=== PATIENT | female | born 1965 | race Caucasian/White ===

== ENCOUNTER 2020-06-18 03:22 | Emergency (ER) | payer SELFPAY ==
[~2020-06-18] VITALS: Ht 154.9 cm; Wt 148.8 kg
[2020-06-18] MEDS ORDERED: ONDANSETRON HCL INJ 2MG/ML 2ML 2 MG/ML VIAL IV STA (03:51)
[2020-06-18] MEDS ORDERED: KETOROLAC TROMETHAMINE 30 MG/ML VIAL IV STA (03:51)
[2020-06-18] MEDS ORDERED: SODIUM CHLORIDE 0.9% 1000ML 1,000 ML IV STA (03:51)
[2020-06-18] MEDS ORDERED: SODIUM CHLORIDE 0.9% 1000ML 1,000 ML ONE (03:56)
[2020-06-18 04:04] LABS: BASOPHILS % 0.4 % (0.0-1.0); EOSINOPHILS # (AUTO) 0.1 (0.0-0.4); EOSINOPHILS % 0.6 % (0.0-6.0); HEMATOCRIT 42.7 % (34.2-44.1); HEMOGLOBIN 13.1 g/dL (12.0-16.0); LYMPHOCYTES # (AUTO) 1.6 (1.0-3.2); LYMPHOCYTES % 14.3 % (18.0-39.1); MEAN CORPUSCULAR HGB CONC 30.7 g/dL (31-35); MONOCYTES # (AUTO) 0.6 (0.2-0.8); MONOCYTES % 5.8 % (4.4-11.3); NEUTROPHILS # (AUTO) 8.6 (2.1-6.9); NEUTROPHILS % 78.2 % (38.7-80.0); PLATELET COUNT 237 x10e3/uL (140-360); RED BLOOD COUNT 4.85 x10e6/uL (3.6-5.1); RED CELL DISTRIBUTION WIDTH 14.2 % (11.7-14.4)
[2020-06-18 04:18] LABS: ALANINE AMINOTRANSFERASE 41 IU/L (0-55); ALBUMIN 3.3 g/dL (3.5-5.0); ALBUMIN/GLOBULIN RATIO 0.7 (0.8-2.0); ALKALINE PHOSPHATASE 105 IU/L (40-150); ANION GAP 19.1 mmol/L (8-16); BLOOD UREA NITROGEN 10 mg/dL (7-26); BUN/CREATININE RATIO 13 (6-25); CALCIUM 9.6 mg/dL (8.4-10.2); CARBON DIOXIDE 27 mmol/L (22-29); CHLORIDE 96 mmol/L (98-107); CREATINE KINASE 442 IU/L (29-168); CREATININE, SERUM 0.76 mg/dL (0.57-1.11); EST GLOMERULAR FILTRATION RATE > 60 ML/MIN (60-); GLUCOSE 267 mg/dL (74-118); POTASSIUM 4.1 mmol/L (3.5-5.1); SODIUM 138 mmol/L (136-145)
--- OUTSIDE RECORDS SUMMARY | 2020-06-18 04:28 | XMS REPORT | Clinical Summary ---
Author Author Dannie Faith Organization [place] [facility] Address Unknown Phone Unavailable Care Team Providers Care Electrocardiograph Repairer Name Role Phone Asked, No Pcp PCP Unavailable Allergies Comments Active Allergy Reactions Severity Noted Date Exenatide Rash Low 01/19/2019 Codeine Rash Low 10/10/2018 Swelling of skin Hydralazine-Hydrochloroth Other (See 01/19/2019 iazid Comments) Swelling of skin Morphine Other (See 05/09/2019 Comments) Swelling of skin Penicillins Other (See 10/10/2018 Comments) Swelling of skin Valsartan Other (See Low 01/19/2019 Comments) Medications End Date Status Medication Sig Dispensed Refills Start Date Active dulaglutide (TRULICITY) Inject 0.75 0 0.75 mg/0.5 mL pen mg under the injector skin every 7 days. Takes on tuesdays Active nateglinide (STARLIX) 60 Take 60 mg by 0 MG tablet mouth daily. Active glimepiride (AMARYL) 4 MG Take 4 mg by 0 tablet mouth daily before breakfast. Active pravastatin (PRAVACHOL) Take 40 mg by 0 40 MG tablet mouth daily. Active metFORMIN (GLUCOPHAGE) Take 1,000 mg 0 1,000 mg tablet by mouth 2 (two) times a day with meals. Active metoprolol succinate XL Take 25 mg by 0 (TOPROL-XL) 25 mg 24 hr mouth daily. tablet Active levothyroxine (SYNTHROID, Take 25 mcg 0 LEVOXYL) 25 mcg tablet by mouth every morning. Active valsartan (DIOVAN) 320 MG Take 320 mg 0 tablet by mouth daily. Active omeprazole (PriLOSEC) 20 Take 20 mg by 0 MG capsule mouth daily. Active insulin Inject 40 0 glargine,hum.rec.anlog Units under (TOUJEO SOLOSTAR U-300 the skin INSULIN SUBQ) daily. Active ipratropium-albuterol Inhale 1 puff 0 (COMBIVENT RESPIMAT) 4 (four) 20-100 mcg/actuation mist times a day. inhaler Active fenofibrate (TRICOR) 145 Take 145 mg 0 MG tablet by mouth daily. Active insulin regular, human Inject 10 0 (HUMULIN R REGULAR U-100 Units as INSULN INJ) directed 2 (two) times a day with meals. Active pregabalin (LYRICA) 150 Take 150 mg 0 MG capsule by mouth daily. Active diclofenac (VOLTAREN) 75 Take 75 mg by 0 MG EC tablet mouth 2 (two) times a day. 07/10/2019 Discontinued (Stop Taking at Discharge) phenytoin (DILANTIN) 100 Take 500 mg 0 MG ER capsule by mouth daily. 08/10/2019 phenytoin (DILANTIN) 200 Take 1 30 capsule 0 0 /15/201 MG ER capsule capsule (200 9 mg total) by mouth daily for 30 days. 08/09/2019 phenytoin (DILANTIN) 300 Take 1 30 capsule 0 0 /14/201 MG ER capsule capsule (300 9 mg total) by mouth nightly for 30 days. Active Problems Problem Noted Date Seizure 07/10/2019 CARL (obstructive sleep apnea) 07/10/2019 Dyspnea 07/08/2019 Biliary colic 01/20/2019 Encounters Care Team Description Date Type Specialty Deepa Zelaya RPH 07/13/2019 Patient Quality Outreach [place] Freddy Ornelas MD Yerramadha, Muralidhar Reddy, MD Seizure (HCC) (Primary Dx); Dyspnea, unspecified type; Lower extremity edema; SOB (shortness of breath) on exertion; CARL (obstructive sleep apnea) 07/08/2019 [facility] after 06/18/2019 Social History Date Tobacco Use Types Packs/Day Years Used Never Smoker Smokeless Tobacco: Never Used Drinks/Week oz/Week Comments Alcohol Use No Alcohol Habits Answer Date Recorded How often do you have a drink containing alcohol? Never 10/10/2018 How many drinks containing alcohol do you have on No t asked a typical day when you are drinking? How often do you have six or more drinks on one Not asked occasion? Sex Assigned at Date Recorded Not on file Industry Job Start Date Occupation Not on file Not on file Not on file Travel End Travel History Travel Start No recent travel history available. Last Filed Vital Signs Reading Time Taken Comments Vital Sign 131/63 07/10/2019 10:43 AM CDT Blood Pressure 88 07/10/2019 10:43 AM CDT Pulse 36.9 C (98.4 F) 07/10/2019 10:43 AM CDT Temperature 20 07/10/2019 10:43 AM CDT Respiratory Rate 95% 07/10/2019 10:43 AM CDT Oxygen Saturation - - Inhaled Oxygen Concentration 122 kg (270 lb) 07/08/2019 4:49 PM CDT Weight 160 cm (5' 3") 07/08/2019 4:49 PM CDT Height 47.83 07/08/2019 4:49 PM CDT Body Mass Index Plan of Treatment Health Maintenance Due Date Last Done Comments CERVICAL CANCER SCREENING 1986 BREAST CANCER SCREENING 2015 COLONOSCOPY SCREENING 2015 SHINGLES VACCINES (#1) 2015 INFLUENZA VACCINE 07/27/2020 Procedures Comments Procedure Name Priority Date/Time Associated Diag nosis POC GLUCOSE Routine 07/10/2019 11:32 AM CDT SMEAR REVIEW Routine 07/10/2019 6:37 AM CDT ESTIMATED GFR Routine 07/10/2019 6:37 AM CDT BASIC METABOLIC PANEL Routine 07/10/2019 6:37 AM CDT HC COMPLETE BLD COUNT Routine 07/10/2019 W/AUTO DIFF 6:37 AM CDT POC GLUCOSE Routine 07/10/2019 6:00 AM CDT POC GLUCOSE Routine 07/09/2019 7:52 PM CDT POC GLUCOSE Routine 07/09/2019 4:14 PM CDT POC GLUCOSE Routine 07/09/2019 10:38 AM CDT URINE CULTURE Routine 07/09/2019 6:02 AM CDT GRAM STAIN Routine 07/09/2019 6:02 AM CDT SMEAR REVIEW Routine 07/09/2019 5:57 AM CDT ESTIMATED GFR Routine 07/09/2019 5:57 AM CDT COMPREHENSIVE METABOLIC Routine 07/09/2019 PANEL 5:57 AM CDT CBC WITH PLATELET AND Routine 07/09/2019 DIFFERENTIAL 5:57 AM CDT URINALYSIS SCREEN AND Routine 07/09/2019 MICROSCOPY, WITH REFLEX 5:28 AM CDT TO CULTURE POC GLUCOSE Routine 07/09/2019 5:06 AM CDT ECG 12-LEAD Routine 07/09/2019 4:39 AM CDT TROPONIN Timed 07/09/2019 1:00 AM CDT ECG 12-LEAD Routine 07/09/2019 12:12 AM CDT POC GLUCOSE Routine 07/08/2019 9:48 PM CDT TROPONIN Timed 07/08/2019 9:00 PM CDT LIPID PANEL Routine 07/08/2019 9:00 PM CDT US DUPLEX VENOUS LOWER STAT 07/08/2019 EXTREMITY BILATERAL 7:32 PM CDT XR CHEST 2 VW STAT 07/08/2019 5:41 PM CDT ECG 12-LEAD STAT 07/08/2019 5:15 PM CDT D-DIMER STAT 07/08/2019 5:05 PM CDT ESTIMATED GFR STAT 07/08/2019 5:05 PM CDT PHENYTOIN LEVEL STAT 07/08/2019 5:05 PM CDT B NATRIURETIC PEPTIDE STAT 07/08/2019 5:05 PM CDT TROPONIN STAT 07/08/2019 5:05 PM CDT CREATINE KINASE, TOTAL STAT 07/08/2019 (CPK) 5:05 PM CDT COMPREHENSIVE METABOLIC STAT 07/08/2019 PANEL 5:05 PM CDT PARTIAL THROMBOPLASTIN STAT 07/08/2019 TIME (PTT) 5:05 PM CDT PROTHROMBIN TIME WITH INR STAT 07/08/2019 5:05 PM CDT HC COMPLETE BLD COUNT STAT 07/08/2019 W/AUTO DIFF 5:05 PM CDT ECG ED PRELIMINARY Routine 07/08/2019 INTERPRETATION 5:00 PM CDT after 06/18/2019 Results * POC glucose (07/10/2019 11:32 AM CDT) Only the most recent of 7 results within the time period is included. [facility] POC glucose 126 (H) 65 - 99 mg/dL [place] Comment: JESS GLOVER Meter ID: [id number] [facility] Senior Quality Assurance Analyst: Chas Anderson Specimen Performing Organization Address City/[facility] Ph one Number [facility] [place] [id number] [place] [address] [place], [place] [address] PATHOLOGY AND GENOMIC MEDICINE [facility] [address] [place] [phone] [facility] * Smear review (07/10/2019 6:37 AM CDT) Only the most recent of 2 results within the time period is included. [facility] Platelet slide [place] adequate [place] review [facility] Anisocytosis Slight [facility] Enlarged Few [place] platelets [facility] Anisochromia Slight [facility] Specimen Performing Organization Address City/[facility] Ph one Number [facility] [place]PART[place] [id number] [place] [address] [place] [address] PATHOLOGY AND GENOMIC MEDICINE [facility] [place] [id number] [place] [address] [place] [phone] [facility] * Estimated GFR (07/10/2019 6:37 AM CDT) Only the most recent of 3 results within the time period is included. [facility] Estimated GFR >=90 mL/min/1.73 m2 [place] [facility] G1 >=90 Normal or high G2 60-89 Mildly decreased G3a 45-59 Mildly to moderately decreased G3b 30-44 Moderately to severely decreased G4 15-29 Severely decreased G5 <15 Kidney failure The eGFR was calculated using the Chronic Kidney Disease Epidemiology Collaboration (CKD-EPI) equation. Interpretation is based on recommendations of the National Kidney Foundation-Kidney Disease Outcomes Quality Initiative (NKF-KDOQI) published in 2014. Specimen Plasma specimen Performing Organization Address City/[facility] Ph one Number [facility] [place] [address] [place] [place], [place] [address] PATHOLOGY AND GENOMIC MEDICINE [facility] [address] [place] [address] [facility] * CBC with platelet and differential (07/10/2019 6:37 AM CDT) Only the most recent of 3 results within the time period is included. WBC 7.60 4.50 - 11.00 k/uL [facility] RBC 4.48 4.20 - 5.50 m/uL [facility] HGB 11.8 (L) 12.0 - 16.0 g/dL [facility] HCT 40.6 37.0 - 47.0 % [facility] MCV 90.6 82.0 - 100.0 fL [facility] MCH 26.3 (L) 27.0 - 34.0 pg [facility] MCHC 29.1 (L) 31.0 - 37.0 g/dL [facility] RDW - SD 50.4 37.0 - 55.0 fL [facility] MPV 10.4 8.8 - 13.2 fL [facility] Platelet count 218 150 - 400 k/uL [facility] Nucleated RBC 0.00 /100 WBC [facility] Neutrophils 63.2 39.0 - 69.0 % [facility] Lymphocytes 29.2 25.0 - 45.0 % [facility] Monocytes 5.0 0.0 - 10.0 % [facility] Eosinophils 1.8 0.0 - 5.0 % [facility] Basophils 0.4 0.0 - 1.0 % [facility] Specimen Blood Performing Organization Address City/State/[facility] Ph one Number [facility] [place] [address] [place], [place] [address] PATHOLOGY AND GENOMIC MEDICINE [facility] [address] [place] [address] * Basic metabolic panel (07/10/2019 6:37 AM CDT) Sodium 143 135 - 148 mEq/L [facility] Potassium 4.0 3.5 - 5.0 mEq/L [facility] Chloride 101 98 - 112 mEq/L [facility] CO2 33 (H) 24 - 31 mEq/L [facility] Anion gap 9@ANIO 7 - 15 mEq/L [facility] BUN 18 6 - 20 mg/dL [facility] Creatinine 0.50 0.50 - 0.90 mg/dL [facility] Glucose 93 65 - 99 mg/dL [facility] Calcium 9.6 8.3 - 10.2 mg/dL [facility] Specimen Plasma specimen Performing Organization Address [facility] Ph one Number [facility] [place] [address] [place], [place] [address] PATHOLOGY AND GENOMIC MEDICINE [facility] [address] [address] * Gram stain (07/09/2019 6:02 AM CDT) Gram stain No WBC's [place] result Few Gram positive rods [facility] Comment: HOSPITAL Specimen Information Specimen Source: Urine Specimen Site: Clean catch Specimen Urine Performing Organization Address City/[facility] Ph one Number [facility] DEPARTMENT OF [address] [place] [address] PATHOLOGY AND GENOMIC MEDICINE [place] [facility] * Urine culture (07/09/2019 6:02 AM CDT) Urine culture Mixed miguel <=10-3 col/cc [place] isolate Comment: [facility] Specimen Information [facility] Specimen Source: Urine Specimen Site: Clean catch Specimen Urine Performing Organization Address City/State/Zipcode Ph one Number [facility] DEPARTMENT OF [address] [place] [id number] PATHOLOGY AND GENOMIC MEDICINE [address] * Comprehensive metabolic panel (07/09/2019 5:57 AM CDT) Only the most recent of 2 results within the time period is included. Sodium 140 135 - 148 mEq/L [facility] Potassium 4.0 3.5 - 5.0 mEq/L [facility] Chloride 100 98 - 112 mEq/L [facility] CO2 30 24 - 31 mEq/L [facility] Anion gap 10@ANIO 7 - 15 mEq/L [facility] BUN 15 6 - 20 mg/dL [facility] Creatinine 0.50 0.50 - 0.90 mg/dL [facility] Glucose 186 (H) 65 - 99 mg/dL [facility] Calcium 9.2 8.3 - 10.2 mg/dL [facility] Protein 6.8 6.3 - 8.3 g/dL [place] Comment: [facility] 4.6-7.0 g/dL 1 week 4.4-7.6 g/dL 7 months-1year 5.1-7.3 g/dL 1-2 years 5.6-7.5 g/dL >3 years 6.0-8.0 g/dL 18-150 6.3-8.3 g/dL Albumin 3.6 3.5 - 5.0 g/dL [facility] A/G ratio 1.1 0.7 - 3.8 [facility] Alkaline 92 35 - 104 U/L [place] phosphatase [facility] AST 19 10 - 35 U/L [facility] ALT 30 5 - 50 U/L [facility] Total bilirubin 0.2 0.0 - 1.2 mg/dL [facility] Specimen Plasma specimen Performing Organization Address City/State/Zipcode Ph one Number [facility] [place] [address] [place] [place], [place] [address] PATHOLOGY AND GENOMIC MEDICINE [facility] [address] [place] [address] [facility] * Urinalysis screen and microscopy, with reflex to culture (07/09/2019 5:28 AM CDT) Specimen site Clean catch [facility] Color, UA Shayla [facility] Appearance, UA Clear [facility] Specific 1.010 1.001 - 1.035 [place] gravity, UA [facility] pH, UA 6.0 5.0 - 8.5 [facility] Protein, UA Negative Negative [facility] Glucose, UA 2+ (A) Negative [facility] Ketones, UA Negative Negative [facility] Bilirubin, UA Negative Negative [facility] Blood, UA Negative Negative [facility] Nitrite, UA Positive (A) Negative [facility] Urobilinogen, Negative <2.0 [facility] Leukocyte Negative Negative [place] esterase, UA [facility] Epithelial Moderate Few /HPF [place] cells, UA [facility] WBC, UA 0-5 0 - 4 /HPF [facility] RBC, UA 0-5 0 - 5 /HPF [facility] Bacteria, UA Few None seen [facility] Yeast, UA None seen [facility] Yeast with None seen [place] pseudohyphae, [facility] Specimen Urine Performing Organization Address City/[facility] Ph one Number [facility] [place] [address] [place], [place] [address] PATHOLOGY AND GENOMIC MEDICINE [facility] [address] [place] [address] [facility] * ECG 12 lead (07/09/2019 4:39 AM CDT) Only the most recent of 3 results within the time period is included. Ventricular 80 [facility] rate Atrial rate 80 [facility] HI interval 154 [facility] QRSD interval 78 [facility] QT interval 382 [facility] QTC interval 440 [facility] P axis 1 30 [facility] QRS axis 1 21 [facility] T wave axis 18 [facility] EKG impression Normal sinus rhythm (cited on [facility] MUS E or before 08-MAY-2019)-Normal ECG-In automated comparison with ECG of 09-JUL-2019 00:12,-No significant change was found- Specimen Narrative Performed At This result has an attachment that is n ot available. Performing Organization Address City/[facility] Ph one Number [facility] MUSE [address] [place] [address] * Troponin (07/09/2019 1:00 AM CDT) Only the most recent of 3 results within the time period is included. Troponin <0.006 0.000 - 0.040 ng/mL [place] Comment: [facility] changed methodology effective: 03/02/2019 at 10:00 am The new method has a 99th percentile cutoff of 0.040 ng/mL Specimen Plasma specimen Performing Organization Address City/[facility] Ph one Number [facility] [place] [address] [place] [address] PATHOLOGY AND GENOMIC MEDICINE [facility] [address] [place] [address] [facility] * Lipid panel (07/08/2019 9:00 PM CDT) Cholesterol 192 <200 mg/dL [facility] Triglycerides 174 (A) <150 mg/dL [facility] HDL cholesterol 45 >40 mg/dL [facility] LDL cholesterol 143 (H)Comment: Result <100 mg/dL [facility] [[email or web address]] N obtained by direct LDL [facility] measurement [facility] Lipid panel SeeBelow [place] interpretation Comment: [facility] Total Cholesterol (mg/dL) [facility] <200 Desirable 200-239 Borderline-high >=240 High Triglycerides (mg/dL) <150 Normal 150-199 Borderline-high 200-499 High >=500 Very high HDL Cholesterol (mg/dL) <40 Low (male) <40 Low (female) LDL Cholesterol (mg/dL) <100 Optimal 100-129 Near or above optimal 130-159 Borderline-high 160-189 High >=190 Very high Risk Catergories that modify LDL goals. Risk Catergories LDL goal (mg/dL) CHD and CHD risk equivalent <100 (10-year risk >20%) Multiple (2+) risk factors <130 (10-year risk =<20%) 0-1 risk factors <160 (<10-year risk) Defining levels of lipids in metabolic syndrome Triglycerides >=150 mg/dL HDL Cholesterol Men <40 mg/dL Women <40 mg/dL Non-HDL cholesterol is a second target for therapy in persons with high triglycerides (>=200 mg/dL) Specimen Plasma specimen Performing Organization Address City/[facility]/Zipcode Ph one Number [facility] [place] [address] [place], [place] [address] PATHOLOGY AND GENOMIC MEDICINE [place] [facility] CLEAR [id number] [place] [address] [place] [address] [facility] * Us duplex venous lower extremity (07/08/2019 7:32 PM CDT) Specimen Narrative Performed At [facility] Bilateral lower extremity venous duplex ultrasound does not show evidence of venous thrombosis in the visualized veins. Normal compression or augmentation is s een. Performing Organization Address [facility] one Number [facility] [address] [place] [address], [place] * XR Chest 2 Vw (07/08/2019 5:41 PM CDT) Specimen Narrative Performed At EXAMINATION: XR CHEST 2 VW [facility] CLINICAL HISTORY: SOB IMPRESSION: There is mild fullness of the left meghan r region, but the appearance is similar to a prior study from 2015. Heart size is at upper limits of normal. There is no acute appearing infiltrate or effusion. There is degenerative change of the thoracic spine. [id number] Procedure Note Interface, Radiology Results Incoming - 07/08/2019 5:48 PM CDT EXAMINATION: XR CHEST 2 VW CLINICAL HISTORY: SOB IMPRESSION: There is mild fullness of the left hilar region, but the appearance is similar to a prior study from 2015. Heart size is at upper limits of normal. There is no acute appearing infiltrate or effusion. There is degenerative change of the thoracic spine. [facility]-[id number] Performing Organization Address [facility] one Number [facility] [address] [place] [address] * Partial thromboplastin time, activated (07/08/2019 5:05 PM CDT) PTT 24.8 23.0 - 36.0 sec [place] Comment: [facility] PTT therapeutic range for [facility] unfractionated heparin is 61.0-112.0 seconds which corresponds to Anti-Xa 0.3-0.7 U/ml. Specimen Blood Performing Organization Address City/State/Zipcode Ph one Number [facility] [place] [address] [place], [place] [address] PATHOLOGY AND GENOMIC MEDICINE [place] JESS GLOVER [address] [address] [place], [place] [address] [place] [address] * Prothrombin time with INR (07/08/2019 5:05 PM CDT) Prothrombin 12.5 11.5 - 14.5 sec [place] time [facility] INR 1.0 [place] Comment: JESS GLOVER The International Normalized [facility] Ratio (INR) is a therapeutic monitoring tool for patients who are stable on oral anticoagulant therapy. An INR of 2.0-3.0 is suggested for deep vein thrombosis/pulmonary embolism. Specimen Blood Performing Organization Address [facility] one Number [facility] [place] [address] [address] [place] [address] PATHOLOGY AND [facility] MEDICINE [facility] [address] [address] [place] [address] * D-dimer (07/08/2019 5:05 PM CDT) Pathologist [facility] D-dimer 0.56 (H) 0.00 - 0.40 ug/mL [place] Comment: FEU [facility] Units are ug/ml Fibrinogen [facility] Equivalent Unit. When combined with low clinical probability, D-dimer results of less than 0.5 ug/ml FEU have a good negative predictive value in excluding PE or DVT. For D-dimer results greater than 0.5 ug/ml FEU further testing is indicated if PE or DVT is suspected clinically. Elevated D-dimer results have been reported in DVT, PE, and DIC cases and may indicate the presence of a clot. D-dimer results may be elevated due to old age, , inflammatory diseases, trauma, post-operative states, sepsis, and malignancies. Specimen Blood Performing Organization Address [facility] one Number [facility] [place] [address] [place] [phone] PATHOLOGY AND [facility] MEDICINE [facility] [address] [address] * B natriuretic peptide (07/08/2019 5:05 PM CDT) BNP 14 0 - 100 pg/mL [facility] Specimen Blood Performing Organization Address City/[facility] one Number [facility] [place] [address] [place] [address] PATHOLOGY AND [facility] MEDICINE [facility] [address] [address] * Creatine kinase, total (CPK) (07/08/2019 5:05 PM CDT) Creatine kinase 34 26 - 192 U/L [facility] Specimen Plasma specimen Performing Organization Address City/[facility] Ph one Number [facility] [place] [address] [place] [address] PATHOLOGY AND GENOMIC MEDICINE [place] [facility] [address] [place] [phone] [facility] * Phenytoin level (07/08/2019 5:05 PM CDT) Phenytoin <0.8 (A) 10.0 - 20.0 ug/mL [place] Comment: [facility] Therapeutic Range: [facility] 10 - 20 ug/mL Specimen Plasma specimen Performing Organization Address [facility] Ph one Number [facility] [place] [address] [place] [address] PATHOLOGY AND GENOMIC MEDICINE [place] [facility] [address] [address] [place] [phone] [facility] * ECG ED Preliminary Interpretation - Not an Order (07/08/2019 5:00 PM CDT) Narrative Performed At Sherie Mata NP-C 07/09/2019 5:41 AM ECG ED Preliminary Interpretation - Not an Order Performed by: Sherie Mata NP-C Authorized by: Freddy Engle MD ECG reviewed by ED Physician in the abs ence of a news specialist: yes Previous ECG: Previous ECG: Compared to current Comparison ECG info: 05/08/19 Lala l sinus rhythm-Low voltage QRS-Cannot rule out Anterior infarct , age undetermined-Abnormal ECG Similarity: No change Interpretation: Interpretation: abnormal Rate: ECG rate: 87 ECG rate assessment: normal Rhythm: Rhythm: sinus rhythm Ectopy: Ectopy: none QRS: QRS axis: Normal QRS intervals: Normal Conduction: Conduction: normal ST segments: ST segments: Normal T waves: T waves: normal after 06/18/2019 Additional Health Concerns Resolved Time Infection Noted Time C.Difficile (E) 01/22/2019 9:51 AM CDT Advance Directives For more information, please contact: [phone] 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
--- OUTSIDE RECORDS SUMMARY | 2020-06-18 04:28 | XMS REPORT | Continuity of Care Document ---
Author Author [facility] Organization [facility] Address 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 Name Role Phone Asked, Pcp No PCP Unavailable [facility], Deepa Attphys Unavailable Juan Ornelas MD, Puneet Hayes Attphys Paola HICKS, Shahzad Jarvis Attphys Payers Payer Name Policy Type Policy Number Effective Date Expiration Date S ource Problems Condition Name Condition Details Condition Category Status Onset Date Resolution Date Last Treatment Date Treating Clinician Comments Source Seizure Seizure Disease Active 2019-07-10 00:00:00 Dannie Knight CARL (obstructive sleep apnea) CARL (obstructive sleep apnea) Disease Active 2019-07-10 00:00:00 Dannie Knight Dyspnea Dyspnea Disease Active 2019-07-08 00:00:00 Dannie Knight Biliary colic Biliary colic Disease Active 2019-01-20 00:00:00 Dannie Knight Allergies, Adverse Reactions, Alerts Allergy Name Allergy Type Status Severity Reaction(s) Onset Date Inacti ve Date Treating Clinician Comments Source Penicillins DA Active U 2019-06-08 00:00:00 [facility] codeine DA Active U 2019-06-08 00:00:00 [facility] hydralazine DA Active SV 2019-06-08 00:00:00 [facility] valsartan DA Active SV 2019-06-08 00:00:00 [facility] exenatide DA Active SV 2019-06-08 00:00:00 [facility] Morphine Propensity to adverse reactions to drug Active Other (See Comments) 2019-05-09 00:00:00 Swelling of skin Pandey Met martín Exenatide Propensity to adverse reactions to drug Active Rash 2019-01-19 00:00:00 Dannie Mcclellan t Hydralazine-Hydrochlorothiazid Propensity to adverse reactions to d rug Active Other (See Comments) 2019-01-19 00:00:00 Swelling of s kin Dannie Knight Valsartan Propensity to adverse reactions to drug Active Other (See Comments) 2019-01-19 00:00:00 Swelling of skin Pandey Met martín Codeine Propensity to adverse reactions to drug Active Rash 2018-10-10 00:00:00 Dannie Manningis t Penicillins Propensity to adverse reactions to drug Active Other (See Comments) 2018-10-10 00:00:00 Swelling of skin [facility] Penicillins DA Active U 2009-04-23 00:00:00 [facility] codeine DA Active U 2009-04-23 00:00:00 [facility] Social History Social Habit Start Date Stop Date Quantity Comments Source History SDOH Alcohol Std Drinks Dannie Knight History SDOH Alcohol Binge Dannie Knight Sex Assigned At [employer] [facility] Alcohol intake 2019-07-08 00:00:00 2019-07-08 00:00:00 Current non-drinker of alcohol (finding) Dannie [facility]ain[facility] History SDOH Alcohol Frequency 2018-10-10 00:00:00 2018-10-10 00:00:0 0 1 Dannie Knight Smoking Status Start Date Stop Date Source Never smoker Dannie hutson Medications Ordered Medication Name Filled Medication Name Start Date Stop Da te Current Medication? Ordering Clinician Indication Dosage Frequency Signature (SIG) Comments Components Source phenytoin (DILANTIN) 200 MG ER capsule 2019-06-27 5 00:00:00 2019-08-10 23:59:00 No 200mg QD Take 1 capsule (200 mg total) by mouth daily for 30 days. Dannie Knight phenytoin (DILANTIN) 100 MG ER capsule 2019-06-27 4 12:48:32 2019-07-10 00:00:00 No 500mg QD Take 500 mg by mouth daily. Dannie Knight dulaglutide (TRULICITY) 0.75 mg/0.5 mL pen injector 07-10 12:48:30 Yes .75mg Q1W Inject 0.75 mg under the skin every 7 da ys. Takes on tuesdays Dannie Knight nateglinide (STARLIX) 60 MG tablet 2019-07-10 12:48:30 Yes 60mg Take 60 mg by mouth daily. Dannie Knight glimepiride (AMARYL) 4 MG tablet 2019-07-10 12:48:30 Yes 4mg QD Take 4 mg by mouth daily before breakfast. Avelino Knight pravastatin (PRAVACHOL) 40 MG tablet 2019-07-10 12:48:30 Ye s 40mg QD Take 40 mg by mouth daily. Dannie busch metFORMIN (GLUCOPHAGE) 1,000 mg tablet 2019-07-10 12:48:30 Yes 1000mg Q.5D Take 1,000 mg by mouth 2 (two) times a day with meals. Dannie Knight metoprolol succinate XL (TOPROL-XL) 25 mg 24 hr tablet 2019-07-10 12:48:30 Yes 25mg QD Take 25 mg by mouth daily. Dannie Knight levothyroxine (SYNTHROID, LEVOXYL) 25 mcg tablet 2019-07-10 12:48:30 Yes 25ug QD Take 25 mcg by mouth every morning. Dannie Knight valsartan (DIOVAN) 320 MG tablet 2019-07-10 12:48:30 Yes 320mg QD Take 320 mg by mouth daily. Dannie Knight omeprazole (PriLOSEC) 20 MG capsule 2019-07-10 12:48:30 Yes 20mg QD Take 20 mg by mouth daily. Dannie Knight insulin glargine,hum.rec.anlog (LEV BERNSTEIN U-300 INSULI N SUBQ) 2019-07-10 12:48:30 Yes 40U Inject 40 Units under the ski n daily. Dannie Knight ipratropium-albuterol (COMBIVENT RESPIMAT) 20-100 mcg/actuat ion mist inhaler 2019-07-10 12:48:30 Yes 1{puff} Q.25D Inhale 1 puf f 4 (four) times a day. Dannie Knight fenofibrate (TRICOR) 145 MG tablet 2019-07-10 12:48:30 Yes 145mg QD Take 145 mg by mouth daily. Dannie Knight insulin regular, human (HUMULIN R REGULAR U-100 INSULN INJ) 2019-07-10 12:48:30 Yes 10U Q.5D Inject 10 Units as directed 2 (two) times a day with meals. Dannie Knight pregabalin (LYRICA) 150 MG capsule 2019-07-10 12:48:30 Yes 150mg QD Take 150 mg by mouth daily. Dannie Knight diclofenac (VOLTAREN) 75 MG EC tablet 2019-07-10 12:48:30 Y es 75mg Q.5D Take 75 mg by mouth 2 (two) times a day. Dannie Knight phenytoin (DILANTIN) 300 MG ER capsule 2019-06-27 4 00:00:00 2019-08-09 23:59:00 No 300mg QD Take 1 capsule (300 mg total) by mouth nightly for 30 days. Dannie Knight Vital Signs Vital Name Observation Time Observation Value Comments Source Systolic blood pressure 2019-07-10 10:43:32 131 mm[Hg] Dannie Knight Diastolic blood pressure 2019-07-10 10:43:32 63 mm[Hg] Dannie Knight Heart rate 2019-07-10 10:43:32 88 /min Dannie Knight Body temperature 2019-07-10 10:43:32 36.89 Venessa Avelino Knight Respiratory rate 2019-07-10 10:43:32 20 /min Avelino Knight Oxygen saturation in Arterial blood by Pulse oximetry 07-10 10:43:32 95 /min Dannie Knight Body height 2019-07-08 16:49:00 160 cm Dannie Knight Body weight 2019-07-08 16:49:00 122.471 kg Dannie Knight BMI 2019-07-08 16:49:00 47.83 kg/m2 Dannie Knight Procedures Procedure Date / Time Performed Performing Clinician Sourc e POC GLUCOSE 2019-07-10 11:32:00 Mtaheus Guevara HC COMPLETE BLD COUNT W/AUTO DIFF 2019-07-10 06:37:00 Juwan Godinez Jainism BASIC METABOLIC PANEL 2019-07-10 06:37:00 Aurora Godinez Jainism ESTIMATED GFR 2019-07-10 06:37:00 Aurora Godinez on Jainism SMEAR REVIEW 2019-07-10 06:37:00 Aurora Godinez on Jainism POC GLUCOSE 2019-07-10 06:00:00 BhanuanabellataylorGarfield nguyễntaylorsoren Ricedy Pandey Jainism POC GLUCOSE 2019-07-09 19:52:00 Matheus Guevara Pandey Jainism POC GLUCOSE 2019-07-09 16:14:00 Garfield Guevarasoren Pike Davis Jainism POC GLUCOSE 2019-07-09 10:38:00 JerrytaylorMatheus nguyễn Pandey Jainism GRAM STAIN 2019-07-09 06:02:00 Aurora Godinez on Jainism URINE CULTURE 2019-07-09 06:02:00 Aurora Godinez on Jainism CBC WITH PLATELET AND DIFFERENTIAL 2019-07-09 05:57:00 Sherie Mata COMPREHENSIVE METABOLIC PANEL 2019-07-09 05:57:00 Jackie Mata Jainism ESTIMATED GFR 2019-07-09 05:57:00 Sherie Mata Meth odist SMEAR REVIEW 2019-07-09 05:57:00 Sherie Mata Meth odiftikhar URINALYSIS SCREEN AND MICROSCOPY, WITH REFLEX TO CULTURE 201 07-05-13 05:28:00 Aurora Godinez Jainism POC GLUCOSE 2019-07-09 05:06:00 Matheus Guevara Jainism ECG 12-LEAD 2019-07-09 04:39:46 Sherie Mata Meth odist TROPONIN 2019-07-09 01:00:00 Sherie Mata Meth odist ECG 12-LEAD 2019-07-09 00:12:12 Sherie Mata Meth odist POC GLUCOSE 2019-07-08 21:48:00 Paola Farzanaemily Pike Pandey Jainism LIPID PANEL 2019-07-08 21:00:00 Aurora Godinez on Jainism TROPONIN 2019-07-08 21:00:00 Sherie Mata US DUPLEX VENOUS LOWER EXTREMITY BILATERAL 2019-07-08 19:32: 00 Aurora Godinez XR CHEST 2 VW 2019-07-08 17:41:46 Sherie Mata ECG 12-LEAD 2019-07-08 17:15:41 Sherie Mata HC COMPLETE BLD COUNT W/AUTO DIFF 2019-07-08 17:05:00 Christopher Mata PROTHROMBIN TIME WITH INR 2019-07-08 17:05:00 Sherie Mata PARTIAL THROMBOPLASTIN TIME (PTT) 2019-07-08 17:05:00 Christopher Mata COMPREHENSIVE METABOLIC PANEL 2019-07-08 17:05:00 Jackie Mata CREATINE KINASE, TOTAL (CPK) 2019-07-08 17:05:00 Sherie Mata TROPONIN 2019-07-08 17:05:00 Aurora Godinez on Jainism B NATRIURETIC PEPTIDE 2019-07-08 17:05:00 Sherie aMta PHENYTOIN LEVEL 2019-07-08 17:05:00 Sherie Mata ESTIMATED GFR 2019-07-08 17:05:00 Sherie Mata D-DIMER 2019-07-08 17:05:00 Sherie Mata ECG ED PRELIMINARY INTERPRETATION 2019-07-08 17:00:00 Christopher Mata Plan of Care Planned Activity Planned Date Details Comments Source Future Scheduled Test 2020-07-27 00:00:00 INFLUENZA VACCINE [code = INFLUENZA VACCINE] Dannie Knight Future Scheduled Test 2015 00:00:00 BREAST CANCER SCRE ENING [code = BREAST CANCER SCREENING] Pandey Jainism Future Scheduled Test 2015 00:00:00 COLONOSCOPY SCREEN ING [code = COLONOSCOPY SCREENING] Pandey Jainism Future Scheduled Test 2015 00:00:00 SHINGLES VACCINES (#1) [code = SHINGLES VACCINES (#1)] Dannie Jainism Future Scheduled Test 1986 00:00:00 Screening for lisa gnant neoplasm of cervix (procedure) [code = 690798963] Dannie Mcclellan t Results Test Description Test Time Test Comments Results Result Comments Source GLUBED 2019-11-22 08:30:00 Test Item GLUBED (test code = GLUBED) 352 MG/DL 70-110 H Performed by certified stone operator at [facility] [id number] 21:15:00* Test Item Value Reference Range Interpretation Comments GLUBED (test code = GLUBED) 334 MG/DL 70-110 H Performed by certified stone operator at [facility] [id number] 20:18:00* Test Item Value Reference Range Interpretation Comments GLUBED (test code = GLUBED) 327 MG/DL 70-110 H Performed by certified stone operator at [facility] [id number] 12:48:00* Test Item Value Reference Range Interpretation Comments GLUBED (test code = GLUBED) 318 MG/DL 70-110 H Performed by certified stone operator at [facility] CBC W/AUTO [id number] 08:25:00* Test Item Value Reference Range Interpretation Comments WHITE BLOOD CELL (test code = WBC) 9.55 x10 3/uL 4.5-11.0 N RED BLOOD CELL (test code = RBC) 4.67 x10 6/uL 3.54-5.02 N HEMOGLOBIN (test code = HGB) 12.9 g/dL 11.0-15.0 N HEMATOCRIT (test code = HCT) 42.1 % 33.0-45.0 N MEAN CELL VOLUME (test code = MCV) 90.1 fL 81.0-99.0 N MEAN CELL HGB (test code = MCH) 27.6 pg 27.0-33.0 N MEAN CELL HGB CONCETRATION (test code = MCHC) 30.6 g/dL 33.0-37. 0 L RED CELL DISTRIBUTION WIDTH CV (test code = RDW) 13.9 % 11.5- 14.5 N RED CELL DISTRIBUTION WIDTH SD (test code = RDW-SD) 46.5 fL 37 .0-54.0 N PLATELET COUNT (test code = PLT) 257 x10 3/uL 150-400 N MEAN PLATELET VOLUME (test code = MPV) 10.6 fL 7.0-9.0 H NEUTROPHIL % (test code = NT%) 64.3 % 56.0-77.0 N IMMATURE GRANULOCYTE % (test code = IG%) 0.4 % 0.0-2.0 N LYMPHOCYTE % (test code = LY%) 28.1 % 14.0-32.0 N MONOCYTE % (test code = MO%) 4.4 % 4.8-9.0 L EOSINOPHIL % (test code = EO%) 2.2 % 0.3-3.7 N BASOPHIL % (test code = BA%) 0.6 % 0.0-2.0 N NUCLEATED RBC % (test code = NRBC%) 0.0 % 0-0 N NEUTROPHIL # (test code = NT#) 6.14 x10 3/uL 2.0-7.6 N IMMATURE GRANULOCYTE # (test code = IG#) 0.04 x10 3/uL 0.00-0.03 H LYMPHOCYTE # (test code = LY#) 2.68 x10 3/uL 1.0-3.8 N MONOCYTE # (test code = MO#) 0.42 x10 3/uL 0.1-0.8 N EOSINOPHIL # (test code = EO#) 0.21 x10 3/uL 0.0-0.2 H BASOPHIL # (test code = BA#) 0.06 x10 3/uL 0.0-0.2 N NUCLEATED RBC # (test code = NRBC#) 0.00 x10 3/uL 0.0-0.1 N MANUAL DIFF REQUIRED (test code = MDIFF) NO BASIC METABOLIC [id number] 08:24:00* Test Item Value Reference Range Interpretation Comments SODIUM (test code = NA) 134 mEq/L 134-147 N POTASSIUM (test code = K) 4.4 mEq/L 3.4-5.0 N CHLORIDE (test code = CL) 94 mEq/L 100-108 L CARBON DIOXIDE (test code = CO2) 37 mEq/L 21-33 H ANION GAP (test code = GAP) 7 0-20 N GLUCOSE (test code = GLU) 281 mg/dL 70-110 H BLOOD UREA NITROGEN (test code = BUN) 17 mg/dL 7-18 N GLOMERULAR FILTRATION RATE (test code = GFR) 104.2 90-95 H Units of measure = ml/min/1.73 m2 CREATININE (test code = CREAT) 0.6 mg/dL 0.6-1.3 N CALCIUM (test code = CA) 9.1 mg/dL 8.0-10.5 N [id number] 07:02:00* Test Item Value Reference Range Interpretation Comments GLUBED (test code = GLUBED) 293 MG/DL 70-110 H Performed by certified stone operator at [facility] [id number] 21:52:00* Test Item Value Reference Range Interpretation Comments GLUBED (test code = GLUBED) 341 MG/DL 70-110 H Performed by certified stone operator at [facility] [id number] 11:08:00* Test Item Value Reference Range Interpretation Comments GLUBED (test code = GLUBED) 215 MG/DL 70-110 H Performed by certified stone operator at [facility] CBC W/AUTO [id number] 09:02:00* Test Item Value Reference Range Interpretation Comments WHITE BLOOD CELL (test code = WBC) 9.54 x10 3/uL 4.5-11.0 N RED BLOOD CELL (test code = RBC) 4.62 x10 6/uL 3.54-5.02 N HEMOGLOBIN (test code = HGB) 12.7 g/dL 11.0-15.0 N HEMATOCRIT (test code = HCT) 42.4 % 33.0-45.0 N MEAN CELL VOLUME (test code = MCV) 91.8 fL 81.0-99.0 N MEAN CELL HGB (test code = MCH) 27.5 pg 27.0-33.0 N MEAN CELL HGB CONCETRATION (test code = MCHC) 30.0 g/dL 33.0-37. 0 L RED CELL DISTRIBUTION WIDTH CV (test code = RDW) 14.2 % 11.5- 14.5 N RED CELL DISTRIBUTION WIDTH SD (test code = RDW-SD) 48.1 fL 37 .0-54.0 N PLATELET COUNT (test code = PLT) 239 x10 3/uL 150-400 N MEAN PLATELET VOLUME (test code = MPV) 10.5 fL 7.0-9.0 H NEUTROPHIL % (test code = NT%) 68.6 % 56.0-77.0 N IMMATURE GRANULOCYTE % (test code = IG%) 0.4 % 0.0-2.0 N LYMPHOCYTE % (test code = LY%) 24.2 % 14.0-32.0 N MONOCYTE % (test code = MO%) 4.4 % 4.8-9.0 L EOSINOPHIL % (test code = EO%) 1.9 % 0.3-3.7 N BASOPHIL % (test code = BA%) 0.5 % 0.0-2.0 N NUCLEATED RBC % (test code = NRBC%) 0.0 % 0-0 N NEUTROPHIL # (test code = NT#) 6.54 x10 3/uL 2.0-7.6 N IMMATURE GRANULOCYTE # (test code = IG#) 0.04 x10 3/uL 0.00-0.03 H LYMPHOCYTE # (test code = LY#) 2.31 x10 3/uL 1.0-3.8 N MONOCYTE # (test code = MO#) 0.42 x10 3/uL 0.1-0.8 N EOSINOPHIL # (test code = EO#) 0.18 x10 3/uL 0.0-0.2 N BASOPHIL # (test code = BA#) 0.05 x10 3/uL 0.0-0.2 N NUCLEATED RBC # (test code = NRBC#) 0.00 x10 3/uL 0.0-0.1 N MANUAL DIFF REQUIRED (test code = MDIFF) NO BASIC METABOLIC [id number] 08:08:00* Test Item Value Reference Range Interpretation Comments SODIUM (test code = NA) 137 mEq/L 134-147 N POTASSIUM (test code = K) 4.0 mEq/L 3.4-5.0 N CHLORIDE (test code = CL) 95 mEq/L 100-108 L CARBON DIOXIDE (test code = CO2) 36 mEq/L 21-33 H ANION GAP (test code = GAP) 10 0-20 N GLUCOSE (test code = GLU) 241 mg/dL 70-110 H BLOOD UREA NITROGEN (test code = BUN) 17 mg/dL 7-18 N GLOMERULAR FILTRATION RATE (test code = GFR) 128.6 90-95 H Units of measure = ml/min/1.73 m2 CREATININE (test code = CREAT) 0.5 mg/dL 0.6-1.3 L CALCIUM (test code = CA) 9.0 mg/dL 8.0-10.5 N [id number] 23:20:00* Test Item Value Reference Range Interpretation Comments GLUBED (test code = GLUBED) 235 MG/DL 70-110 H Performed by certified stone operator at [facility] [id number] 17:12:00* Test Item Value Reference Range Interpretation Comments GLUBED (test code = GLUBED) 289 MG/DL 70-110 H Performed by certified stone operator at [facility] [id number] 16:45:00* Test Item Value Reference Range Interpretation Comments GLUBED (test code = GLUBED) 237 MG/DL 70-110 H Performed by certified stone operator at [facility] [id number] 08:58:00* Test Item Value Reference Range Interpretation Comments GLUBED (test code = GLUBED) 208 MG/DL 70-110 H Performed by certified stone operator at [facility] BASIC METABOLIC [id number] 08:22:00* Test Item Value Reference Range Interpretation Comments SODIUM (test code = NA) 137 mEq/L 134-147 N POTASSIUM (test code = K) 3.7 mEq/L 3.4-5.0 N CHLORIDE (test code = CL) 97 mEq/L 100-108 L CARBON DIOXIDE (test code = CO2) 34 mEq/L 21-33 H ANION GAP (test code = GAP) 10 0-20 N GLUCOSE (test code = GLU) 233 mg/dL 70-110 H BLOOD UREA NITROGEN (test code = BUN) 22 mg/dL 7-18 H GLOMERULAR FILTRATION RATE (test code = GFR) 128.6 90-95 H Units of measure = ml/min/1.73 m2 CREATININE (test code = CREAT) 0.5 mg/dL 0.6-1.3 L CALCIUM (test code = CA) 8.8 mg/dL 8.0-10.5 N CBC W/AUTO [id number] 07:26:00* Test Item Value Reference Range Interpretation Comments WHITE BLOOD CELL (test code = WBC) 9.85 x10 3/uL 4.5-11.0 N RED BLOOD CELL (test code = RBC) 4.54 x10 6/uL 3.54-5.02 N HEMOGLOBIN (test code = HGB) 12.3 g/dL 11.0-15.0 N HEMATOCRIT (test code = HCT) 41.9 % 33.0-45.0 N MEAN CELL VOLUME (test code = MCV) 92.3 fL 81.0-99.0 N MEAN CELL HGB (test code = MCH) 27.1 pg 27.0-33.0 N MEAN CELL HGB CONCETRATION (test code = MCHC) 29.4 g/dL 33.0-37. 0 L RED CELL DISTRIBUTION WIDTH CV (test code = RDW) 14.4 % 11.5- 14.5 N RED CELL DISTRIBUTION WIDTH SD (test code = RDW-SD) 48.4 fL 37 .0-54.0 N PLATELET COUNT (test code = PLT) 263 x10 3/uL 150-400 N MEAN PLATELET VOLUME (test code = MPV) 10.9 fL 7.0-9.0 H NEUTROPHIL % (test code = NT%) 68.3 % 56.0-77.0 N IMMATURE GRANULOCYTE % (test code = IG%) 0.3 % 0.0-2.0 N LYMPHOCYTE % (test code = LY%) 24.8 % 14.0-32.0 N MONOCYTE % (test code = MO%) 4.1 % 4.8-9.0 L EOSINOPHIL % (test code = EO%) 2.0 % 0.3-3.7 N BASOPHIL % (test code = BA%) 0.5 % 0.0-2.0 N NUCLEATED RBC % (test code = NRBC%) 0.0 % 0-0 N NEUTROPHIL # (test code = NT#) 6.73 x10 3/uL 2.0-7.6 N IMMATURE GRANULOCYTE # (test code = IG#) 0.03 x10 3/uL 0.00-0.03 N LYMPHOCYTE # (test code = LY#) 2.44 x10 3/uL 1.0-3.8 N MONOCYTE # (test code = MO#) 0.40 x10 3/uL 0.1-0.8 N EOSINOPHIL # (test code = EO#) 0.20 x10 3/uL 0.0-0.2 N BASOPHIL # (test code = BA#) 0.05 x10 3/uL 0.0-0.2 N NUCLEATED RBC # (test code = NRBC#) 0.00 x10 3/uL 0.0-0.1 N MANUAL DIFF REQUIRED (test code = MDIFF) NO [id number] 21:46:00* Test Item Value Reference Range Interpretation Comments GLUBED (test code = GLUBED) 368 MG/DL 70-110 H Performed by certified stone operator at [facility] [id number] 21:08:00* Test Item Value Reference Range Interpretation Comments GLUBED (test code = GLUBED) 111 MG/DL 70-110 H Performed by certified stone operator at [facility] [id number] 18:37:00* Test Item Value Reference Range Interpretation Comments GLUBED (test code = GLUBED) 264 MG/DL 70-110 H Performed by certified stone operator at [facility] [id number] 08:12:00* Test Item Value Reference Range Interpretation Comments GLUBED (test code = GLUBED) 255 MG/DL 70-110 H Performed by certified stone operator at [facility] CBC W/AUTO [id number] 08:11:00* Test Item Value Reference Range Interpretation Comments WHITE BLOOD CELL (test code = WBC) 11.32 x10 3/uL 4.5-11.0 H RED BLOOD CELL (test code = RBC) 4.83 x10 6/uL 3.54-5.02 N HEMOGLOBIN (test code = HGB) 13.3 g/dL 11.0-15.0 N HEMATOCRIT (test code = HCT) 45.2 % 33.0-45.0 H MEAN CELL VOLUME (test code = MCV) 93.6 fL 81.0-99.0 MEAN CELL HGB (test code = MCH) 27.5 pg 27.0-33.0 N MEAN CELL HGB CONCETRATION (test code = MCHC) 29.4 g/dL 33.0-37. 0 L RED CELL DISTRIBUTION WIDTH CV (test code = RDW) 14.6 % 11.5- 14.5 H RED CELL DISTRIBUTION WIDTH SD (test code = RDW-SD) 50.3 fL 37 .0-54.0 N PLATELET COUNT (test code = PLT) 272 x10 3/uL 150-400 N MEAN PLATELET VOLUME (test code = MPV) 10.9 fL 7.0-9.0 H NEUTROPHIL % (test code = NT%) 69.0 % 56.0-77.0 N IMMATURE GRANULOCYTE % (test code = IG%) 0.4 % 0.0-2.0 N LYMPHOCYTE % (test code = LY%) 23.3 % 14.0-32.0 N MONOCYTE % (test code = MO%) 4.2 % 4.8-9.0 L EOSINOPHIL % (test code = EO%) 2.6 % 0.3-3.7 N BASOPHIL % (test code = BA%) 0.5 % 0.0-2.0 N NUCLEATED RBC % (test code = NRBC%) 0.0 % 0-0 N NEUTROPHIL # (test code = NT#) 7.81 x10 3/uL 2.0-7.6 H IMMATURE GRANULOCYTE # (test code = IG#) 0.04 x10 3/uL 0.00-0.03 H LYMPHOCYTE # (test code = LY#) 2.64 x10 3/uL 1.0-3.8 N MONOCYTE # (test code = MO#) 0.48 x10 3/uL 0.1-0.8 N EOSINOPHIL # (test code = EO#) 0.29 x10 3/uL 0.0-0.2 H BASOPHIL # (test code = BA#) 0.06 x10 3/uL 0.0-0.2 N NUCLEATED RBC # (test code = NRBC#) 0.00 x10 3/uL 0.0-0.1 N MANUAL DIFF REQUIRED (test code = MDIFF) NO COMMENTS: To be done morning of Heart CathBASIC METABOLIC [id number] 08:09:00* Test Item Value Reference Range Interpretation Comments SODIUM (test code = NA) 137 mEq/L 134-147 N POTASSIUM (test code = K) 3.8 mEq/L 3.4-5.0 N CHLORIDE (test code = CL) 97 mEq/L 100-108 L CARBON DIOXIDE (test code = CO2) 34 mEq/L 21-33 H ANION GAP (test code = GAP) 10 0-20 N GLUCOSE (test code = GLU) 334 mg/dL 70-110 H BLOOD UREA NITROGEN (test code = BUN) 26 mg/dL 7-18 H GLOMERULAR FILTRATION RATE (test code = GFR) 74.7 90-95 L Units of measure = ml/min/1.73 m2 CREATININE (test code = CREAT) 0.8 mg/dL 0.6-1.3 CALCIUM (test code = CA) 9.2 mg/dL 8.0-10.5 N COMMENTS: To be done morning of Heart [id number] 07:34:00* Test Item Value Reference Range Interpretation Comments GLUBED (test code = GLUBED) 201 MG/DL 70-110 H Performed by certified stone operator at [facility] [id number] 17:59:00* Test Item Value Reference Range Interpretation Comments GLUBED (test code = GLUBED) 280 MG/DL 70-110 H Performed by certified stone operator at [facility] [id number] 09:33:00* Test Item Value Reference Range Interpretation Comments HGBA1C% (test code = HGBA1C%) 10.1 %A1C 4.8-6.0 H [id number] 08:32:00* Test Item Value Reference Range Interpretation Comments GLUBED (test code = GLUBED) 263 MG/DL 70-110 H Performed by certified stone operator at [facility] B-TYPE NATRIURETIC [id number] 08:32:00* Test Item Value Reference Range Interpretation Comments B-TYPE NATRIURETIC PEPTIDE (test code = BNP) 18.9 PG/ML 0-100 N CBC W/AUTO [id number] 07:32:00* Test Item Value Reference Range Interpretation Comments WHITE BLOOD CELL (test code = WBC) 10.05 x10 3/uL 4.5-11.0 N RED BLOOD CELL (test code = RBC) 4.74 x10 6/uL 3.54-5.02 N HEMOGLOBIN (test code = HGB) 12.9 g/dL 11.0-15.0 N HEMATOCRIT (test code = HCT) 42.0 % 33.0-45.0 N MEAN CELL VOLUME (test code = MCV) 88.6 fL 81.0-99.0 N MEAN CELL HGB (test code = MCH) 27.2 pg 27.0-33.0 N MEAN CELL HGB CONCETRATION (test code = MCHC) 30.7 g/dL 33.0-37. 0 L RED CELL DISTRIBUTION WIDTH CV (test code = RDW) 14.1 % 11.5- 14.5 N RED CELL DISTRIBUTION WIDTH SD (test code = RDW-SD) 45.7 fL 37 .0-54.0 N PLATELET COUNT (test code = PLT) 262 x10 3/uL 150-400 N MEAN PLATELET VOLUME (test code = MPV) 10.7 fL 7.0-9.0 H NEUTROPHIL % (test code = NT%) 68.5 % 56.0-77.0 N IMMATURE GRANULOCYTE % (test code = IG%) 0.4 % 0.0-2.0 N LYMPHOCYTE % (test code = LY%) 23.9 % 14.0-32.0 N MONOCYTE % (test code = MO%) 4.6 % 4.8-9.0 L EOSINOPHIL % (test code = EO%) 2.2 % 0.3-3.7 N BASOPHIL % (test code = BA%) 0.4 % 0.0-2.0 N NUCLEATED RBC % (test code = NRBC%) 0.0 % 0-0 N NEUTROPHIL # (test code = NT#) 6.89 x10 3/uL 2.0-7.6 N IMMATURE GRANULOCYTE # (test code = IG#) 0.04 x10 3/uL 0.00-0.03 H LYMPHOCYTE # (test code = LY#) 2.40 x10 3/uL 1.0-3.8 N MONOCYTE # (test code = MO#) 0.46 x10 3/uL 0.1-0.8 N EOSINOPHIL # (test code = EO#) 0.22 x10 3/uL 0.0-0.2 H BASOPHIL # (test code = BA#) 0.04 x10 3/uL 0.0-0.2 N NUCLEATED RBC # (test code = NRBC#) 0.00 x10 3/uL 0.0-0.1 N MANUAL DIFF REQUIRED (test code = MDIFF) NO BASIC METABOLIC [id number] 07:28:00* Test Item Value Reference Range Interpretation Comments SODIUM (test code = NA) 137 mEq/L 134-147 N POTASSIUM (test code = K) 3.7 mEq/L 3.4-5.0 N CHLORIDE (test code = CL) 96 mEq/L 100-108 L CARBON DIOXIDE (test code = CO2) 37 mEq/L 21-33 H ANION GAP (test code = GAP) 8 0-20 N GLUCOSE (test code = GLU) 277 mg/dL 70-110 H BLOOD UREA NITROGEN (test code = BUN) 24 mg/dL 7-18 H GLOMERULAR FILTRATION RATE (test code = GFR) 128.6 90-95 H Units of measure = ml/min/1.73 m2 CREATININE (test code = CREAT) 0.5 mg/dL 0.6-1.3 L CALCIUM (test code = CA) 8.4 mg/dL 8.0-10.5 N LIPID PROFILE (CORONARY RISK)2019-11-15 07:28:00* Test Item Value Reference Range Interpretation Comments TRIGLYCERIDES (test code = TRIG) 203 mg/dL 40-150 H CHOLESTEROL (test code = CHOL) 222 mg/dL <200 H CHOLESTEROL/HDL RATIO (test code = CHOLHDL) 6.00 RATIO 3.27-4.44 H RISK ASSOCIATED WITH CHOL/HDL RATIOS: RISK MALE FEMALE1/2 AVERAGE 3.43 3.27AVERAGE 4.97 4.442X AVERAGE 9.55 7.053X AVERAGE 23.39 11.04 NOTE THAT THE REFERENCE VALUE IS RELATEDTO RISK LEVELS RECOMMENDED BY THE NATL.HEART, LUNG, AND BLOOD INST. HDL CHOLESTEROL (test code = HDL) 37.0 mg/dL 39-96 L LIPOPROTEIN LDL (test code = LDL) 156 mg/dL 0-100 H <100 [id number] NEAR OPTIMAL/ABOVE [id number] HIGH>TG=376 VERY HIGH*Guidelines provided by the National Cholesterol EducationProgram Adult Treatment Panel III [id number] 07:28:00* Test Item Value Reference Range Interpretation Comments MAGNESIUM (test code = MAG) 2.20 mg/dL 1.8-2.4 N [id number] 21:27:00* Test Item Value Reference Range Interpretation Comments GLUBED (test code = GLUBED) 266 MG/DL 70-110 H Performed by certified stone operator at [facility] [id number] 19:19:00* Test Item Value Reference Range Interpretation Comments GLUBED (test code = GLUBED) 215 MG/DL 70-110 H Performed by certified stone operator at [facility] COMPREHENSIVE METABOLIC [id number] 16:17:00* Test Item Value Reference Range Interpretation Comments SODIUM (test code = NA) 138 mEq/L 134-147 N POTASSIUM (test code = K) 4.2 mEq/L 3.4-5.0 N CHLORIDE (test code = CL) 101 mEq/L 100-108 N CARBON DIOXIDE (test code = CO2) 30 mEq/L 21-33 N ANION GAP (test code = GAP) 11 0-20 N GLUCOSE (test code = GLU) 258 mg/dL 70-110 H BLOOD UREA NITROGEN (test code = BUN) 16 mg/dL 7-18 N GLOMERULAR FILTRATION RATE (test code = GFR) 87.2 90-95 L Units of measure = ml/min/1.73 m2 CREATININE (test code = CREAT) 0.7 mg/dL 0.6-1.3 N TOTAL PROTEIN (test code = PROT) 7.6 g/dL 6.4-8.2 N ALBUMIN (test code = ALB) 3.00 g/dL 3.4-5.0 L CALCIUM (test code = CA) 9.0 mg/dL 8.0-10.5 N BILIRUBIN TOTAL (test code = BILT) 0.2 MG/DL <1.5 SGOT/AST (test code = AST) 21 IUnit/L 15-37 N SGPT/ALT (test code = ALT) 42 IUnit/L 15-65 N ALKALINE PHOSPHATASE TOTAL (test code = ALKP) 122 IUnit/L 20-125 N CBC W/AUTO [id number] 16:03:00* Test Item Value Reference Range Interpretation Comments WHITE BLOOD CELL (test code = WBC) 11.61 x10 3/uL 4.5-11.0 H RED BLOOD CELL (test code = RBC) 4.56 x10 6/uL 3.54-5.02 N HEMOGLOBIN (test code = HGB) 12.6 g/dL 11.0-15.0 N HEMATOCRIT (test code = HCT) 41.1 % 33.0-45.0 N MEAN CELL VOLUME (test code = MCV) 90.1 fL 81.0-99.0 N MEAN CELL HGB (test code = MCH) 27.6 pg 27.0-33.0 N MEAN CELL HGB CONCETRATION (test code = MCHC) 30.7 g/dL 33.0-37. 0 L RED CELL DISTRIBUTION WIDTH CV (test code = RDW) 14.3 % 11.5- 14.5 N RED CELL DISTRIBUTION WIDTH SD (test code = RDW-SD) 47.1 fL 37 .0-54.0 N PLATELET COUNT (test code = PLT) 273 x10 3/uL 150-400 N MEAN PLATELET VOLUME (test code = MPV) 11.6 fL 7.0-9.0 H NEUTROPHIL % (test code = NT%) 78.5 % 56.0-77.0 H IMMATURE GRANULOCYTE % (test code = IG%) 0.5 % 0.0-2.0 N LYMPHOCYTE % (test code = LY%) 16.1 % 14.0-32.0 N MONOCYTE % (test code = MO%) 3.9 % 4.8-9.0 L EOSINOPHIL % (test code = EO%) 0.7 % 0.3-3.7 N BASOPHIL % (test code = BA%) 0.3 % 0.0-2.0 N NUCLEATED RBC % (test code = NRBC%) 0.0 % 0-0 N NEUTROPHIL # (test code = NT#) 9.11 x10 3/uL 2.0-7.6 H IMMATURE GRANULOCYTE # (test code = IG#) 0.06 x10 3/uL 0.00-0.03 H LYMPHOCYTE # (test code = LY#) 1.87 x10 3/uL 1.0-3.8 N MONOCYTE # (test code = MO#) 0.45 x10 3/uL 0.1-0.8 N EOSINOPHIL # (test code = EO#) 0.08 x10 3/uL 0.0-0.2 N BASOPHIL # (test code = BA#) 0.04 x10 3/uL 0.0-0.2 N NUCLEATED RBC # (test code = NRBC#) 0.00 x10 3/uL 0.0-0.1 N MANUAL DIFF REQUIRED (test code = MDIFF) NO [id number] 15:54:00* Test Item Value Reference Range Interpretation Comments GLUBED (test code = GLUBED) 208 MG/DL 70-110 H Performed by certified stone operator at [facility] HGBA1C%2019-11-14 13:22:00* Test Item Value Reference Range Interpretation Comments HGBA1C% (test code = HGBA1C%) 9.7 %A1C 4.8-6.0 H [id number] 13:20:00* Test Item Value Reference Range Interpretation Comments MAGNESIUM (test code = MAG) 2.20 mg/dL 1.8-2.4 N TSH REFLEX TO [id number] 13:20:00* Test Item Value Reference Range Interpretation Comments TSH REFLEX TO FT4 (test code = TSHREFLEX) 0.97 IU/mL 0.42-5.47 N [id number] 09:56:00* Test Item Value Reference Range Interpretation Comments GLUBED (test code = GLUBED) 346 MG/DL 70-110 H Performed by certified stone operator at [facility] [id number] 05:46:00* Test Item Value Reference Range Interpretation Comments TROPONIN-I (test code = TROPI) < 0.015 ng/mL 0.000-0.045 N Negative: <= 0.045 Positive: >= 0.046 Correlation with serial results, other cardiac markers andclinical findings is necessary to determine the clinicalsignificance of this result. Results using different methodologies should not be comparedto one another as quantitative results may vary by method. COMMENTS: 3 troponins total (including troponin done in ED)[id number] 01:59:00* Test Item Value Reference Range Interpretation Comments TROPONIN-I (test code = TROPI) < 0.015 ng/mL 0.000-0.045 N Negative: <= 0.045 Positive: >= 0.046 Correlation with serial results, other cardiac markers andclinical findings is necessary to determine the clinicalsignificance of this result. Results using different methodologies should not be comparedto one another as quantitative results may vary by method. COMMENTS: 3 troponins total (including troponin done in ED)[id number] 01:46:00* Test Item Value Reference Range Interpretation Comments GLUBED (test code = GLUBED) 416 MG/DL 70-110 H Performed by certified stone operator at [facility] - CT ABD PELVIS W/[id number] 23:12:00 Name: TIFFANIE HALL [facility] : 1965 Age/S: 54 / F [address] [place] [address] Unit #: [id number] Loc: [place] [address] Phys: Rick Rae MD Acct: [id number] Dis Date: Status: REG ER PHONE #: [phone] Exam Date: 11/13/2019 2224 FAX #: [phone] Reason: DYSPNEA INVESTIGATE FOR PNEUMONIA EXAMS: CPT CODE: [id number] CT ABD PELVIS W/CONT 57417 CT abdomen and pelvis with contrast dated 11/13/2019 INDICATION: Right upper quadrant abdominal pain. COMPARISON: CT abdomen dated 06/08/2019. TECHNIQUE: A CT of the abdomen pelvis was performed using helical images from the thoracic outlet through the pubic symphysis with subsequent sagittal and coronal reconstruction. IV CONTRAST: 100 cc of Isovue-300 GI CONTRAST: None. CT imaging performed at this location utilizes radiation dose optimization techniques which include one or more of the followin) Automated exposure control; 2) Adjustment of mA and/or kV; 3) Use of iterative reconstructive technique. CT radiation dose DLP (mGy-cm): 888 (total for CT chest, abdomen and pelvis) sees. FINDINGS: SOLID ORGANS: The liver is enlarged (22.5 cm) and demonstrates evidence of diffuse fatty infiltration. No acute CT abnormalities of the spleen, pancreas, adrenal glands or kidneys are identified. A 3 mm calcified stone is noted in the lower pole of the left kidney. There is no CT evidence of acute renal collecting system obstruction or calcified ureteral stone. BILIARY: The gallbladder is normally distended. No significant biliary ductal dilatation is identified. ELO WEL: Bowel assessment is limited by the absence of bowel contrast. No bertin ss abnormalities of the stomach or duodenum are identified. No small zoey l dilatation is present to suggest obstruction. The appendix is identifie d and is not acutely inflamed. There is no evidence of acute diverticular disease or inflammatory colonic wall thickening inflammatory colonic wall thickening. PERITONEUM: There is no evidence of free intraperiton eal air or significant free intraperitoneal fluid. RETROPERI TONEUM: The abdominal aorta is normal in caliber. There is no evidence of retroperitoneal mass or adenopathy. PELVIS: The patient is status post hysterectomy. No adnexal masses PAGE 1 Signed Report (CONTINUED) Name: TIFFANIE HALL [facility] : 1965 Age/S: 54 / F [address] [facility] Unit #: [id number] Loc: [place] [address] Phys: Rick Rae MD Acct: [id number] Dis Date: Status: REG ER PHONE #: [phone] Exam Date: 11/13/20194 FAX #: [phone] Reason: DYSPNEA INVESTIGATE FOR P NEUMONIA EXAMS: CPT CODE: [id number] CT ABD PELVIS W/CONT 01854 <Continued> are noted. The bladder has an unremarkable appearance. LOWER CHEST: Mild atelectasis is identified in the lung bases. ADDITIONAL FINDINGS: None. IMPRESSION: 1. No acute CT abnormalities of the abdomen or pelvis are detected. 2. Left nephrolithiasis. 3. Hepatomegaly with fatty infiltration. SL: 131 at 2312 Reported and signed by: Javier Lundberg M.D. CC: Rick Rae MD; Bernard Mayberry MD Technologist:Jamel Bevaer, RT(R) CTDI: DLP: Trnscb Date/Time: 11/13/2019 (2311) t.DMM Orig Print D/T: S: 11/13/2019 (9798) PAGE 2 Signed Report - CT CHEST W/[id number] 23:02:00 Name: TIFFANIE HALL [facility] : 1965 Age/S: 54 / F [address] [place] [address] Unit #: [id number] Loc: [place] [address] Phys: Rick Rae MD Acct: [id number] Dis Date: Status: REG ER PHONE #: [phone] Exam Date: 11/13/20192223 FAX #: [phone] Reason: DYSPNEA INVESTIGATE FOR PNEUMONIA EXAMS: CPT CODE: [id number] CT CHEST W/CONTRAST 84512 CT CHEST WITH INTRAVENOUS CONTRAST INDICATION: DYSPNEA INVESTIGATE FOR PNEUMONIA . TECHNIQUE: 100 mL Isovue-300 iodinated intravenous contrast was administered. CT of the chest was performed with multi planar reconstructions. CT imaging performed at this location utilizes radiation dose optimization technique which includes one or more of the followin) Automated exposure control; 2) Adjustment of the mA and/or kV according to patient's size; 3) Use of iterative reconstruction techniques. DLP (mGy-cm): 889 COMPARISONS: Chest x-ray 11/13/2019 FINDINGS: There is diffuse idiopathic skeletal hyperostosis of the spine. There is no acute osseous fracture or dislocation. There is no organized fluid collection or mass in the soft tissues. The thyroid reveals no focal lesion. The mediastinum reveals no mass, organized fluid collection or lymphadenopathy. There is cardiomegaly. There is no pericardial effusion. There is a mild burden of atherosclerotic calcification of the coronary arteries. There is mild atherosclerotic vascular calcification of the aorta. The aorta reveals no aneurysm or acute process. The left vertebral artery demonstrates a direct origin from the aortic arch, an anatomic variant. The esophagus reveals no wall thickening, mass or dilation. There is no tracheobronchomalacia or bronchiectasis. There is no filling defect in the airways. There is a telectasis within the dependent lungs. There is mild right upper lobe and right middle lobe air trapping within the lungs. There is a 2.4 cm area of vague groundglass opacity within the lateral dependent right middle lob e on coronal image 67 of series 601. There is no pneumothorax or pleural effusion. There is dependent mild pulmonary atelectasis. Pl ease refer to the bag making machine tender CT abdomen and pelvis report for discussion of intra-abdominal anatomy. PAGE 1 Signed Report (CONTINUED) Name: TIFFANIE HALL [facility] : 1965 Age/S: 54 / F [address] [facility] Unit #: [id number] Loc: [place] [address] Phys: Rick Rae MD Acct: [id number] Dis Date: Status: REG ER PHONE #: [phone] Exam Date: 11/13/2019 2224 FAX #: [phone] Reason: DYSPNEA INVESTIGATE FOR PNEUMONIA EXAMS: CPT CODE: [id number] CT CHEST W/CONTRAST 05078 < Continued> IMPRESSION: 1. There is a 2.4 cm area of vague groundglass opacity in the basal lateral right middle lobe. This is likely mild atelectasis but could represent very early pneumonitis/pneumonia. 2. There is cardiomegaly without congestive heart failure. There is a mild burden of atherosclerotic calcification of the coronary arteries. at 2302 Reported and signed by: Angel Torres D.O. CC: Rick Rae MD; Bernard Mayberry MD Technologist:Jamel Beaver, RT(R) CTDI: DLP: Trnscb Date/Time: 11/13/2019 (2302) t.SDR.JB33 Orig Print D/T: S: 11/13/2019 (5075) PAGE 2 Signed Report PROTHROMBIN [id number] 22:37:00* Test Item Value Reference Range Interpretation Comments PROTHROMBIN TIME PATIENT (test code = PTP) 10.7 SECONDS 9.3-12.9 N INTERNATIONAL NORMAL RATIO (test code = INR) 1.0 0.8-1.2 N TARGET INR BY INDICATION Indication INR1. Prophylaxis of venous thrombosis 2.0 - 3.0 (orthopedic surgery), Prophylaxis of venous thrombosis (other than high-risk surgery), Treatment of Deep Vein Thrombosis/Pulmonary Embolism, Prevention of systemic embolism - Tissue heart valves, Acute Myocardial Infarction (to prevent systemic embolism), Valvular heart disease, Atrial Fibrillation, Bileaflet mechanical valve in aortic position.2. Mechanical prosthetic valves (high risk), 2.5 - 3.5 Presence of Lupus Anticoagulant or Antiphospholipid Antibodies, Prevention of systemic embolism - Acute Myocardial Infarction (to prevent recurrent infarct). THROMBOPLASTIN TIME [id number] 22:37:00* Test Item Value Reference Range Interpretation Comments THROMBOPLASTIN TIME PARTIAL (test code = PTT) 30.6 Seconds 25.0-39. 5 N Therapeutic Range: 50.4 - 88.3 Seconds Effective 02/09/2019 B-TYPE NATRIURETIC [id number] 22:36:00* Test Item Value Reference Range Interpretation Comments B-TYPE NATRIURETIC PEPTIDE (test code = BNP) 33.2 PG/ML 0-100 N BASIC METABOLIC [id number] 22:33:00* Test Item Value Reference Range Interpretation Comments SODIUM (test code = NA) 136 mEq/L 134-147 N POTASSIUM (test code = K) 4.3 mEq/L 3.4-5.0 N CHLORIDE (test code = CL) 103 mEq/L 100-108 N CARBON DIOXIDE (test code = CO2) 29 mEq/L 21-33 N ANION GAP (test code = GAP) 8 0-20 N GLUCOSE (test code = GLU) 444 mg/dL 70-110 H BLOOD UREA NITROGEN (test code = BUN) 17 mg/dL 7-18 N GLOMERULAR FILTRATION RATE (test code = GFR) 104.2 90-95 H Units of measure = ml/min/1.73 m2 CREATININE (test code = CREAT) 0.6 mg/dL 0.6-1.3 N CALCIUM (test code = CA) 8.4 mg/dL 8.0-10.5 N HEPATIC FUNCTION [id number] 22:33:00* Test Item Value Reference Range Interpretation Comments TOTAL PROTEIN (test code = PROT) 7.1 g/dL 6.4-8.2 N ALBUMIN (test code = ALB) 2.90 g/dL 3.4-5.0 L BILIRUBIN TOTAL (test code = BILT) 0.3 MG/DL <1.5 N BILIRUBIN DIRECT (test code = BILD) < 0.10 MG/DL 0.0-0.30 N BILIRUBIN INDIRECT (test code = BILIND) 0.20 MG/DL SGOT/AST (test code = AST) 20 IUnit/L 15-37 N SGPT/ALT (test code = ALT) 43 IUnit/L 15-65 N ALKALINE PHOSPHATASE TOTAL (test code = ALKP) 142 IUnit/L 20-125 H [id number] 22:33:00* Test Item Value Reference Range Interpretation Comments LIPASE (test code = LIP) 107 IUnit/L 73-393 N HCG SERUM [id number] 22:33:00* Test Item Value Reference Range Interpretation Comments HCG SERUM QUAL (test code = HCGQL) SERUM NEGATIVE NEGATIVE [id number] 22:33:00* Test Item Value Reference Range Interpretation Comments TROPONIN-I (test code = TROPI) < 0.015 ng/mL 0.000-0.045 N Negative: <= 0.045 Positive: >= 0.046 Correlation with serial results, other cardiac markers andclinical findings is necessary to determine the clinicalsignificance of this result. Results using different methodologies should not be comparedto one another as quantitative results may vary by method. BASIC METABOLIC [id number] 22:30:00* Test Item Value Reference Range Interpretation Comments SODIUM (test code = NA) mEq/L 134-147 POTASSIUM (test code = K) mEq/L 3.4-5.0 CHLORIDE (test code = CL) mEq/L 100-108 CARBON DIOXIDE (test code = CO2) mEq/L 21-33 ANION GAP (test code = GAP) 0-20 GLUCOSE (test code = GLU) mg/dL 70-110 BLOOD UREA NITROGEN (test code = BUN) mg/dL 7-18 GLOMERULAR FILTRATION RATE (test code = GFR) 90-95 CREATININE (test code = CREAT) mg/dL 0.6-1.3 CALCIUM (test code = CA) mg/dL 8.0-10.5 HEPATIC FUNCTION [id number] 22:30:00* Test Item Value Reference Range Interpretation Comments TOTAL PROTEIN (test code = PROT) g/dL 6.4-8.2 ALBUMIN (test code = ALB) g/dL 3.4-5.0 BILIRUBIN TOTAL (test code = BILT) MG/DL <1.5 BILIRUBIN DIRECT (test code = BILD) MG/DL 0.0-0.30 SGOT/AST (test code = AST) IUnit/L 15-37 SGPT/ALT (test code = ALT) IUnit/L 15-65 ALKALINE PHOSPHATASE TOTAL (test code = ALKP) IUnit/L 20-125 [id number] 22:30:00* Test Item Value Reference Range Interpretation Comments LIPASE (test code = LIP) IUnit/L 73-393 HCG SERUM [id number] 22:30:00* Test Item Value Reference Range Interpretation Comments HCG SERUM QUAL (test code = HCGQL) SERUM NEGATIVE NEGATIVE [id number] 22:30:00* Test Item Value Reference Range Interpretation Comments TROPONIN-I (test code = TROPI) < 0.015 ng/mL 0.000-0.045 N Negative: <= 0.045 Positive: >= 0.046 Correlation with serial results, other cardiac markers andclinical findings is necessary to determine the clinicalsignificance of this result. Results using different methodologies should not be comparedto one another as quantitative results may vary by method. LACTIC [id number] 22:27:00* Test Item Value Reference Range Interpretation Comments LACTIC ACID (test code = LACT) 1.3 mmol/L 0.4-1.9 N DRUGS OF ABUSE SCREEN [id number] 22:27:00* Test Item Value Reference Range Interpretation Comments URN COCAINE (test code = COCAURN) NEGATIVE NEGATIVE URN CANNABINOIDS (test code = CANNABURN) NEGATIVE NEGATIVE URN AMPHETAMINE (test code = AMPHETURN) NEGATIVE NEGATIVE URN BARBITURATE (test code = BARBITURN) NEGATIVE NEGATIVE URN BENZODIAZEPINE (test code = BENZOURN) NEGATIVE NEGATIVE Cut-off value:200 ng/mL URN OPIATES (test code = OPIATURN) NEGATIVE NEGATIVE Cut-off value:2000 ng/mL URN PHENCYCLIDINE (PCP) (test code = PHENCURN) NEGATIVE NEGATIV E Cutoffs:Barbiturates 200 ng/mLBenzodiazepines 200 ng/mLTHC Cannabinoids 50 ng/mLOpiates(Morphine) 2000 ng/mLAmphetamine 1000 ng/mLCocaine 300 ng/mLPCP phencyclidine 25 ng/mL Unconfirmed screening results shouldnot be used for non-medical purposes. BASIC METABOLIC [id number] 22:17:00* Test Item Value Reference Range Interpretation Comments SODIUM (test code = NA) mEq/L 134-147 POTASSIUM (test code = K) mEq/L 3.4-5.0 CHLORIDE (test code = CL) mEq/L 100-108 CARBON DIOXIDE (test code = CO2) mEq/L 21-33 ANION GAP (test code = GAP) 0-20 GLUCOSE (test code = GLU) mg/dL 70-110 BLOOD UREA NITROGEN (test code = BUN) mg/dL 7-18 GLOMERULAR FILTRATION RATE (test code = GFR) 90-95 CREATININE (test code = CREAT) mg/dL 0.6-1.3 CALCIUM (test code = CA) mg/dL 8.0-10.5 HEPATIC FUNCTION [id number] 22:17:00* Test Item Value Reference Range Interpretation Comments TOTAL PROTEIN (test code = PROT) g/dL 6.4-8.2 ALBUMIN (test code = ALB) g/dL 3.4-5.0 BILIRUBIN TOTAL (test code = BILT) MG/DL <1.5 BILIRUBIN DIRECT (test code = BILD) MG/DL 0.0-0.30 SGOT/AST (test code = AST) IUnit/L 15-37 SGPT/ALT (test code = ALT) IUnit/L 15-65 ALKALINE PHOSPHATASE TOTAL (test code = ALKP) IUnit/L 20-125 [id number] 22:17:00* Test Item Value Reference Range Interpretation Comments LIPASE (test code = LIP) IUnit/L 73-393 HCG SERUM [id number] 22:17:00* Test Item Value Reference Range Interpretation Comments HCG SERUM QUAL (test code = HCGQL) SERUM NEGATIVE NEGATIVE [id number] 22:17:00* Test Item Value Reference Range Interpretation Comments TROPONIN-I (test code = TROPI) ng/mL 0.000-0.045 LACTIC [id number] 19:05:00* Test Item Value Reference Range Interpretation Comments LACTIC ACID (test code = LACT) 2.2 MMOL/L 0.4-1.9 HH Results called to [id number] by [email or web address] 11/13/19 1905Critical results verified and read back by Nurse? Y URINALYSIS [id number] 18:14:00* Test Item Value Reference Range Interpretation Comments UA COLOR (test code = COLU) YELLOW YELLOW UA APPEARANCE (test code = APPU) CLEAR CLEAR UA GLUCOSE DIPSTICK (test code = DGLUU) 1000 (3+) mg/dL NEGATIVE A UA BILIRUBIN DIPSTICK (test code = BILU) NEGATIVE mg/dL NEGATIVE UA KETONE DIPSTICK (test code = KETU) neg mg/dL NEGATIVE UA SPECIFIC GRAVITY (test code = SGU) 1.010 1.001-1.035 UA BLOOD DIPSTICK (test code = RANDA) neg Enmanuel/uL NEGATIVE UA PH DIPSTICK (test code = TOM) 7.0 5.0-8.0 UA PROTEIN DIPSTICK (test code = PROU) 30 (1+) mg/dL Neg-15 A UA UROBILINIOGEN DIPSTICK (test code = URO) norm mg/dL 0.0-0.2 UA NITRITE DIPSTICK (test code = AJ) NEGATIVE NEGATIVE UA LEUKOCYTE ESTERASE DIPSTICK (test code = LEUU) 25 Dinorah/uL (Tra ce) uL NEGATIVE A UA WBC (test code = WBCU) 5-10 per HPF 0-5 A UA RBC (test code = RBCU) 0-2 per HPF 0-5 UA EPITHELIAL CELLS (test code = EPIU) Few (2-5/hpf) per HPF Few UA BACTERIA (test code = BACU) FEW per HPF NONE URINALYSIS W/O [id number] 18:14:00* Test Item Value Reference Range Interpretation Comments UA MICROSCOPIC NEEDED? (test code = UAMICRO) YES URINALYSIS [id number] 18:13:00* Test Item Value Reference Range Interpretation Comments UA COLOR (test code = COLU) YELLOW YELLOW UA APPEARANCE (test code = APPU) CLEAR CLEAR UA GLUCOSE DIPSTICK (test code = DGLUU) 1000 (3+) mg/dL NEGATIVE A UA BILIRUBIN DIPSTICK (test code = BILU) NEGATIVE mg/dL NEGATIVE UA KETONE DIPSTICK (test code = KETU) neg mg/dL NEGATIVE UA SPECIFIC GRAVITY (test code = SGU) 1.010 1.001-1.035 UA BLOOD DIPSTICK (test code = RANDA) neg Enmanuel/uL NEGATIVE UA PH DIPSTICK (test code = TOM) 7.0 5.0-8.0 UA PROTEIN DIPSTICK (test code = PROU) 30 (1+) mg/dL Neg-15 A UA UROBILINIOGEN DIPSTICK (test code = URO) norm mg/dL 0.0-0.2 UA NITRITE DIPSTICK (test code = AJ) NEGATIVE NEGATIVE UA LEUKOCYTE ESTERASE DIPSTICK (test code = LEUU) 25 Dinorah/uL (Tra ce) uL NEGATIVE A UA WBC (test code = WBCU) per HPF 0-5 UA RBC (test code = RBCU) per HPF 0-5 UA EPITHELIAL CELLS (test code = EPIU) per HPF Few UA BACTERIA (test code = BACU) per HPF NONE URINALYSIS W/O [id number] 18:13:00* Test Item Value Reference Range Interpretation Comments UA MICROSCOPIC NEEDED? (test code = UAMICRO) YES URINALYSIS [id number] 18:13:00* Test Item Value Reference Range Interpretation Comments UA COLOR (test code = COLU) YELLOW YELLOW UA APPEARANCE (test code = APPU) CLEAR CLEAR UA GLUCOSE DIPSTICK (test code = DGLUU) 1000 (3+) mg/dL NEGATIVE A UA BILIRUBIN DIPSTICK (test code = BILU) NEGATIVE mg/dL NEGATIVE UA KETONE DIPSTICK (test code = KETU) neg mg/dL NEGATIVE UA SPECIFIC GRAVITY (test code = SGU) 1.010 1.001-1.035 UA BLOOD DIPSTICK (test code = RANDA) neg Enmanuel/uL NEGATIVE UA PH DIPSTICK (test code = TOM) 7.0 5.0-8.0 UA PROTEIN DIPSTICK (test code = PROU) 30 (1+) mg/dL Neg-15 A UA UROBILINIOGEN DIPSTICK (test code = URO) norm mg/dL 0.0-0.2 UA NITRITE DIPSTICK (test code = AJ) NEGATIVE NEGATIVE UA LEUKOCYTE ESTERASE DIPSTICK (test code = LEUU) 25 Dinorah/uL (Tra ce) uL NEGATIVE A UA WBC (test code = WBCU) per HPF 0-5 UA RBC (test code = RBCU) per HPF 0-5 UA EPITHELIAL CELLS (test code = EPIU) per HPF Few UA BACTERIA (test code = BACU) per HPF NONE URINALYSIS W/O [id number] 18:13:00* Test Item Value Reference Range Interpretation Comments UA MICROSCOPIC NEEDED? (test code = UAMICRO) YES [id number] 17:14:00* Test Item Value Reference Range Interpretation Comments D-DIMER (test code = DDIMER) 301 ng/ml < 600 - XR CHEST 1 [id number] 17:13:00 Name: TIFFANIE HALL [facility] : 1965 Age/S:54 /F [address] [facility] Unit#:[id number] Loc: [place] [address] Phys: Nicolás Billings MD Dis Date: PHONE #: [phone] Status: PRE ER FAX #: [phone] Exam Date: 11/13/2019 Reason: cough, SOB EXAMS: CPT CODE: [id number] XR CHEST 1 V 41851 HISTORY: cough, shortness of breath TECHNIQUE: AP chest x-ray COMPARISON: None FINDINGS: No airspace consolidation or pleural effusion. Cardiomegaly. Mediastinal silhouette is unremarkable. Degenerative changes of the spine and shoulders. IMPRESSION: No radiographic evidence of acute cardiopulmonary process. LOCATION: at 1713 Reported and signed by: Terese Morgan D.O. CC: Nicolás Billings MD; Chintan Monsalve MD Technologist: Javier Barrios RT(R),CT Trnscrpt Data: 11/13/2019 (4068) [email or web address] Orig Print D/T: S: 11/13/2019 (1733) PAGE 1 Signed Report COMPREHENSIVE METABOLIC [id number] 17:11:00* Test Item Value Reference Range Interpretation Comments SODIUM (test code = NA) 140 mmol/L 136-145 N POTASSIUM (test code = K) 4.4 mmol/L 3.5-5.1 N CHLORIDE (test code = CL) 100 mmol/L 101-109 L CARBON DIOXIDE (test code = CO2) 33.7 mmol/L 21-32 H ANION GAP (test code = GAP) 11 mmol/L 10-20 N GLUCOSE (test code = GLU) 374 mg/dL 74-106 H BLOOD UREA NITROGEN (test code = BUN) 16 mg/dL 3-21 N CREATININE (test code = CREAT) 0.86 mg/dL 0.55-1.3 N BUN/CREATININE RATIO (test code = BUN/CREA) 18.6 10-20 N TOTAL PROTEIN (test code = PROT) 8.0 g/dL 6.5-8.4 N ALBUMIN (test code = ALB) 3.1 g/dL 3.4-4.8 L GLOBULIN (test code = GLOB) 4.9 G/DL 1-10 N ALBUMIN/GLOBULIN RATIO (test code = A/G) 0.63 RATIO 0.75-1.50 L CALCIUM (test code = CA) 9.2 mg/dL 8.4-10.2 N BILIRUBIN TOTAL (test code = BILT) 0.30 mg/dL 0.0-1.0 N SGOT/AST (test code = AST) 23 U/L 6-32 N SGPT/ALT (test code = ALT) 48 U/L 12-78 N N ote: Change in REFERENCE RANGE due to new reagent method. ALKALINE PHOSPHATASE TOTAL (test code = ALKP) 176 U/L 38-126 H [id number] 17:11:00* Test Item Value Reference Range Interpretation Comments TROPONIN-I (test code = TROPI) <0.015 ng/mL 0.00-0.056 N LACTIC [id number] 17:11:00* Test Item Value Reference Range Interpretation Comments LACTIC ACID (test code = LACT) 2.2 MMOL/L 0.4-1.9 HH Results called to [id number] by [email or web address] 11/13/19 1711Critical results verified and read back by Nurse? Y B-TYPE NATRIURETIC [id number] 17:11:00* Test Item Value Reference Range Interpretation Comments B-TYPE NATRIURETIC PEPTIDE (test code = BNP) 24.1 pg/mL 0-100 N COMPREHENSIVE METABOLIC [id number] 17:04:00* Test Item Value Reference Range Interpretation Comments SODIUM (test code = NA) 140 mmol/L 136-145 N POTASSIUM (test code = K) 4.4 mmol/L 3.5-5.1 N CHLORIDE (test code = CL) 100 mmol/L 101-109 L CARBON DIOXIDE (test code = CO2) 33.7 mmol/L 21-32 H ANION GAP (test code = GAP) 11 mmol/L 10-20 N GLUCOSE (test code = GLU) 374 mg/dL 74-106 H BLOOD UREA NITROGEN (test code = BUN) 16 mg/dL 3-21 N CREATININE (test code = CREAT) 0.86 mg/dL 0.55-1.3 N BUN/CREATININE RATIO (test code = BUN/CREA) 18.6 10-20 N TOTAL PROTEIN (test code = PROT) gram/dL 6.4-8.2 ALBUMIN (test code = ALB) g/dL 3.4-5.0 GLOBULIN (test code = GLOB) g/dL 2.7-4.2 ALBUMIN/GLOBULIN RATIO (test code = A/G) 0.75-1.50 CALCIUM (test code = CA) 9.2 mg/dL 8.4-10.2 N BILIRUBIN TOTAL (test code = BILT) mg/dL 0.2-1.2 SGOT/AST (test code = AST) IUnit/L 15-37 SGPT/ALT (test code = ALT) U/L 10-69 ALKALINE PHOSPHATASE TOTAL (test code = ALKP) IUnit/L 45-117 [id number] 17:04:00* Test Item Value Reference Range Interpretation Comments TROPONIN-I (test code = TROPI) ng/mL 0-0.045 CBC W/AUTO [id number] 16:54:00* Test Item Value Reference Range Interpretation Comments WHITE BLOOD CELL (test code = WBC) 11.3 K/mm3 4.5-12.5 N RED BLOOD CELL (test code = RBC) 5.14 mill/mm3 3.7-5.2 N HEMOGLOBIN (test code = HGB) 14.2 gram/dL 11.5-15.5 N HEMATOCRIT (test code = HCT) 45.2 % 36.0-46.0 N MEAN CELL VOLUME (test code = MCV) 87.9 fL 80-98 N MEAN CELL HGB (test code = MCH) 27.6 picogram 27.0-33.0 N MEAN CELL HGB CONCETRATION (test code = MCHC) 31.4 gram/dL 33.0-36. 0 L RED CELL DISTRIBUTION WIDTH (test code = RDW) 14.0 % 11.6-16. 2 N RED CELL DISTRIBUTION WIDTH SD (test code = RDW-SD) 45.5 fL 37 .0-51.0 N PLATELET COUNT (test code = PLT) 273 K/mm3 150-450 N MEAN PLATELET VOLUME (test code = MPV) 10.4 fL 6.7-11.0 N NEUTROPHIL % (test code = NT%) 75.5 % 39.0-69.0 H LYMPHOCYTE % (test code = LY%) 19.0 % 25.0-55.0 L MONOCYTE % (test code = MO%) 3.2 % 0.0-10.0 N EOSINOPHIL % (test code = EO%) 1.7 % 0.0-5.0 N BASOPHIL % (test code = BA%) 0.3 % 0.0-1.0 N NEUTROPHIL # (test code = NT#) 8.53 K/mm3 1.8-7.7 H LYMPHOCYTE # (test code = LY#) 2.15 K/mm3 1.0-5.0 N MONOCYTE # (test code = MO#) 0.36 K/mm3 0-0.8 N EOSINOPHIL # (test code = EO#) 0.19 K/mm3 0.0-0.5 N BASOPHIL # (test code = BA#) 0.03 K/mm3 0.0-0.2 N MANUAL DIFF REQUIRED (test code = MDIFF) NO Urine [id number] 17:34:05* Test Item Value Reference Range Interpretation Comments Urine culture isolate (test code = 52248-0) Mixed miguel <=10-3 col/ cc Specimen InformationSpecimen Source: UrineSpecimen Site: Clean catch [facility] MethodistGram [id number] 17:34:05Gram stain resultNo WBC'sFew Gram positive rods Comment: Specimen InformationSpecimen Source: UrineSpecimen Site: [facility] MethodistPOC [id number] 11:38:54* Test Item Value Reference Range Interpretation Comments POC glucose (test code = 94368-0) 126 mg/dL 65-99 H Meter ID: [id number]: Chas Anderson Lab Interpretation (test code = 01593-0) Abnormal [facility] MethodistSmear [id number] 08:15:12* Test Item Value Reference Range Interpretation Comments Platelet slide review (test code = 59318-8) Yanick adequate Anisocytosis (test code = 702-1) Slight Enlarged platelets (test code = 87833-5) Few Anisochromia (test code = 73479-6) Slight [facility] [id number] 07:29:55* Test Item Value Reference Range Interpretation Comments Sodium (test code = 2951-2) 143 135- 148 mEq/L Potassium (test code = 2823-3) 4.0 3.5- 5.0 mEq/L Chloride (test code = 2075-0) 101 98- 112 mEq/L CO2 (test code = 8-9) 33 24- 31 mEq/L H Anion gap (test code = 56585-9) 9@ANIO 7- 15 mEq/L BUN (test code = 3094-0) 18 mg/dL 6-20 Creatinine (test code = 2160-0) 0.50 mg/dL 0.5-0.9 Glucose (test code = 2345-7) 93 mg/dL 65-99 Calcium (test code = 58036-0) 9.6 mg/dL 8.3-10.2 Lab Interpretation (test code = 53673-3) Abnormal [facility] HospitalEstimated [id number] 07:29:55* Test Item Value Reference Range Interpretation Comments Estimated GFR (test code = 5488) >=90 mL/min/1.73 m2 Catergory Units InterpretationG1 >=90 Normal or highG2 60-89 Mildly jkjfcyukyS6u 45-59 Mildly to moderately yohkrogcbR7q 30-44 Moderately to severely decreasedG4 15-29 Severely decreasedG5 <15 Kidney failureThe eGFR was calculated using the Chronic Kidney Disease Epidemiology Collaboration (CKD-EPI) equation. Interpretation is based on recommendations of the National Kidney Foundation-Kidney Disease Outcomes Quality Initiative (NKF-KDOQI) published in 2014. [facility] with platelet and hcqmpyadqyfc8597-71-84 07:20:31* Test Item Value Reference Range Interpretation Comments WBC (test code = 51714-3) 7.60 4.50- 11.00 k/uL RBC (test code = 63826-3) 4.48 m/uL 4.2-5.5 HGB (test code = 718-7) 11.8 g/dL 12-16 L HCT (test code = 4544-3) 40.6 % 37-47 MCV (test code = 787-2) 90.6 fL 82-100 MCH (test code = 785-6) 26.3 pg 27-34 L MCHC (test code = 786-4) 29.1 g/dL 31-37 L RDW - SD (test code = 31130-8) 50.4 fL 37-55 MPV (test code = 63262-9) 10.4 fL 8.8-13.2 Platelet count (test code = 45133-0) 218 150- 400 k/uL Nucleated RBC (test code = 23375-0) 0.00 /100 WBC Neutrophils (test code = 19023-3) 63.2 % 39-69 Lymphocytes (test code = 00797-6) 29.2 % 25-45 Monocytes (test code = 56234-0) 5.0 % 0-10 Eosinophils (test code = 47259-2) 1.8 % 0-5 Basophils (test code = 38186-2) 0.4 % 0-1 Lab Interpretation (test code = 55149-0) Abnormal [facility]Us duplex venous lower zhzyejuvc2056-07-31 09:22:00Bilateral lower extremity venous duplex ultrasound does not show evidence of venous thrombosis in the visualized veins.Normal compression or augmentation is seen. [facility] MethodistECG 12 [id number] 06:55:38* Test Item Value Reference Range Interpretation Comments Ventricular rate (test code = 253) 80 Atrial rate (test code = 255) 80 WV interval (test code = 266) 154 QRSD interval (test code = 260) 78 QT interval (test code = 264) 382 QTC interval (test code = 265) 440 P axis 1 (test code = 267) 30 QRS axis 1 (test code = 268) 21 T wave axis (test code = 270) 18 EKG impression (test code = 273) Normal sinus rhythm ( cited on or before 08-MAY-2019)-Normal ECG-In automated comparison with ECG of 09-JUL-2019 00:12,- No significant change was found- [facility] MethodistComprehensive metabolic [id number] 06:27:50* Test Item Value Reference Range Interpretation Comments Sodium (test code = 2951-2) 140 135- 148 mEq/L Potassium (test code = 2823-3) 4.0 3.5- 5.0 mEq/L Chloride (test code = 2075-0) 100 98- 112 mEq/L CO2 (test code = 2027-9) 30 24- 31 mEq/L Anion gap (test code = 73730-8) 10@ANIO 7- 15 mEq/L BUN (test code = 3094-0) 15 mg/dL 6-20 Creatinine (test code = 2160-0) 0.50 mg/dL 0.5-0.9 Glucose (test code = 2345-7) 186 mg/dL 65-99 H Calcium (test code = 41783-0) 9.2 mg/dL 8.3-10.2 Protein (test code = 2885-2) 6.8 g/dL 6.3-8.3 [place] 4.6-7.0 g/dL1 week 4.4-7.6 g/dL7 months-1year 5.1-7.3 g/dL1-2 years 5.6-7.5 g/dL>3 years 6.0-8.0 g/nZ88-511 6.3-8.3 g/dL Albumin (test code = 1751-7) 3.6 g/dL 3.5-5 A/G ratio (test code = 1759-0) 1.1 0.7-3.8 Alkaline phosphatase (test code = 6768-6) 92 U/L 35-104 AST (test code = 1920-8) 19 U/L 10-35 ALT (test code = 1742-6) 30 U/L 5-50 Total bilirubin (test code = 1975-2) 0.2 mg/dL 0-1.2 Lab Interpretation (test code = 26435-1) Abnormal [facility] MethodistUrinalysis screen and microscopy, with reflex to culture 2019-07-09 06:02:44* Test Item Value Reference Range Interpretation Comments Specimen site (test code = 2572310) Clean catch Color, UA (test code = 5778-6) Shayla Appearance, UA (test code = 5767-9) Clear Specific gravity, UA (test code = 5811-5) 1.010 1.001-1.035 pH, UA (test code = 5803-2) 6.0 5.0-8.5 Protein, UA (test code = 48174-8) Negative Negative Glucose, UA (test code = 90815-8) 2+ Negative A Ketones, UA (test code = 2514-8) Negative Negative Bilirubin, UA (test code = 5770-3) Negative Negative Blood, UA (test code = 5794-3) Negative Negative Nitrite, UA (test code = 5802-4) Positive Negative A Urobilinogen, UA (test code = 40756-8) Negative <2.0 Leukocyte esterase, UA (test code = 5799-2) Negative Negative Epithelial cells, UA (test code = 5787-7) Moderate Few /HPF WBC, UA (test code = 5821-4) 0-5 0- 4 /HPF RBC, UA (test code = 44943-7) 0-5 0- 5 /HPF Bacteria, UA (test code = 88339-3) Few None seen Yeast, UA (test code = 83164-1) None seen Yeast with pseudohyphae, UA (test code = 37031-6) None seen Lab Interpretation (test code = 43072-4) Abnormal Davis QowvxiwveZfcrixba0836-29-11 01:40:59* Test Item Value Reference Range Interpretation Comments Troponin (test code = 43502-5) <0.006 0-0.04 [facility] changed methodology effective: 03/02/2019 at 10:00 amThe new method has a 99th percentile cutoff of 0.040 ng/mL [facility] MethodistLipid ietya0189-43-00 21:30:06* Test Item Value Reference Range Interpretation Comments Cholesterol (test code = 2093-3) 192 mg/dL <200 Triglycerides (test code = 2571-8) 174 mg/dL <150 A HDL cholesterol (test code = 2085-9) 45 mg/dL >40 LDL cholesterol (test code = 2089-1) 143 mg/dL <100 H Result obtained by direct LDL measurement Lipid panel interpretation (test code = 83325-5) SeeBelow Total Cholesterol (mg/dL) <200 Desirable 200-239 Borderline-high >=240 High Triglycerides (mg/dL) <150 Normal 150-199 Borderline-high 200-499 High >=500 Very high HDL Cholesterol (mg/dL) <40 Low (male) <40 Low (female) LDL Cholesterol (mg/dL) <100 Optimal 100-129 Near or above optimal 130-159 Borderline-high 160-189 High >=190 Very high Risk Catergories that modify LDL goals.Risk Catergories LDL goal (mg/dL)CHD and CHD risk equivalent <100 (10-year risk >20%)Multiple (2+) risk factors <130 (10-year risk =<20%)0-1 risk factors <160 (<10-year risk) Defining levels of lipids in metabolic syndromeTriglycerides >=150 mg/dLHDL Cholesterol Men <40 mg/dL Women <40 mg/dL Non-HDL cholesterol is a second target for therapy in personswith high triglycerides (>=200 mg/dL) Lab Interpretation (test code = 80022-1) Abnormal Davis VrpwexwlbH-aquhj6553-05-12 18:08:11* Test Item Value Reference Range Interpretation Comments D-dimer (test code = 51255-3) 0.56 0.00- 0.40 ug/mL FEU H Units are ug/ml Fibrinogen Equivalent Unit.When combined with low clinical probability, D-dimer results of less than 0.5 ug/ml FEU have a good negative predictive value in excluding PE or DVT. For D-dimer results greater than 0.5 ug/ml FEU further testing is indicated if PE or DVT is suspected clinically.Elevated D-dimer results have been reported in DVT, PE, and DIC cases and may indicate the pre sence of a clot. D-dimer results may be elevated due to old age, , inflammatory diseases, trauma, post-operative states, sepsis, and malignancies. Lab Interpretation (test code = 42360-0) Abnormal [facility] MethodistXR Chest 2 [id number] 17:45:38Hm Interface, Radiology Results 07/08/2019 5:48 PM CDTEXAMINATION: XR CHEST 2 VWCLINICAL HISTORY: SOBIMPRESSION:There is mild fullness of the left hilar region, but the appearance is similar to a prior study from 2014. Heart size is at upper limits of normal. There is no acute appearing infiltrate or effusion. There is degenerative change of the thoracic spine.[facility]-[id number] Jainism Phenytoin fnank5369-23-08 17:45:24* Test Item Value Reference Range Interpretation Comments Phenytoin (test code = 3968-5) <0.8 10-20 A Therapeutic Range: 10 - 20 ug/mL Lab Interpretation (test code = 89025-1) Abnormal [facility] MethodistCreatine kinase, total (CPK)2019-07-08 17:45:24* Test Item Value Reference Range Interpretation Comments Creatine kinase (test code = 2157-6) 34 U/L 26-192 [facility] natriuretic [id number] 17:38:04* Test Item Value Reference Range Interpretation Comments BNP (test code = 36894-0) 14 pg/mL 0-100 [facility] HospitalProthrombin time with [id number] 17:37:55* Test Item Value Reference Range Interpretation Comments Prothrombin time (test code = 5902-2) 12.5 11.5- 14.5 sec INR (test code = 32756-7) 1.0 Th e International Normalized Ratio (INR) is a therapeutic monitoring tool for patients who are stable on oral anticoagulant therapy. An INR of 2.0-3.0 is suggested for deep vein thrombosis/pulmonary embolism. [facility] HospitalPartial thromboplastin time, oklqracds3737-15-23 17:37:55* Test Item Value Reference Range Interpretation Comments PTT (test code = 97489-2) 24.8 23.0- 36.0 sec PTT therapeutic range for unfractionated heparin is61.0-112.0 seconds which corresponds to Anti-Xa0.3-0.7 U/ml. [facility] ED Preliminary Interpretation - Not an [id number] 17:00:00* Test Item Value Reference Range Interpretation Comments SENIA (test code = SENIA) Sherie Mata NP-C 5:41 [facility] ED Preliminary Interpretation - Not an OrderPerformed by: Sherie Mata NP- CAuthorized by: Freddy Engle MD ECG reviewed by ED Physician in the absence of a bulk delivery driver: yes Previous ECG: Previous ECG: Compared to current Comparison ECG info: 05/08/19 Normal sinus rhythm-Low voltage QRS- Cannot rule out Anterior infarct , age undetermined-Abnormal ECG Similarity: No changeInterpretation: Interpretation: abnormal Rate: ECG rate: 87 ECG rate assessment: normal Rhythm: Rhythm: sinus rhythm Ectopy: Ectopy: none QRS: QRS axis: Normal QRS intervals: NormalConduction: Conduction: normal ST segments: ST segments: NormalT waves: T waves: normal Lab Interpretation (test code = 38592-1) Abnormal [facility] PELVIS W/O [id number] 08:56:00 Name: TIFFANIE HALL [facility] : 1965 Age/S: 54 / F [address] [facility] Unit #: [id number] Loc: [place] [address] Phys: Jaciel Morales MD Acct: [id number] Di s Date: Status: REG ER PHONE #: [phone] Exam Date: 06/08/2019 0815 FAX #: [phone] Reason: LLQ PAIN, VOMITING EXAMS: CPT CODE: [id number] CT ABD PELVIS W/O CONT 79898 REASON FOR EXAM: LLQ PAIN, VOMITING EXAM ORDER DATE: 06/08/2019 7:59 AM Ordering M.D.: Hayden Morales MD PROCEDURE: - CT ABD PELVIS W/O CONT noncontrast axial CT images were acquired through the abdomen/pelvis at 5 mm intervals. Sagittal and coronal reformatted images were generated. Automated exposure control was utilized for this reduction. Phases of contrast: None COMPARISON: None FINDINGS: The absence of IV contrast limits sensitivity of this exam for the detection of soft tissue pathology Visualized thorax: Merritt bsegmental atelectasis in the lung bases. Hepatobiliary system: In cidental note is made of a Kenneth's lobe of the liver (normal anatomic beth iant), otherwise grossly normal. Pancreas: Grossly normal Spleen: Grossly normal Adrenal glands: Grossly normal Genitourinary system: There is a 3 mm stone in the inferior pole of the left kidney (604/62) but no hydronephrosis or hydroureter or perinep hric or periureteral fat stranding is appreciated. Prior hysterectomy. Armando dder is within normal limits. Gastrointestinal tract and appendix: Appendix is not clearly visualized but no fat stranding in the right lower abdomen. Otherwise the gastrointestinal tract is grossly within normal l imits. Abdominal vascular structures: Grossly normal. Peritoneum and retroperitoneum: No free fluid or free air. No omental or mesenteric masses. No abnormal lymph nodes. PAGE 1 Signed Report (CONTINUED) Name: TIFFANIE HALL [facility] : 1965 Age/S: 54 / F [address] [facility] Unit #: [id number] Loc: [facility] [place] [address] Phys: Hayden Morales MD Acct: [id number] Dis Date: Status: REG ER PHONE #: [phone] Exam Date: 06/08/2019814 FAX #: [phone] Reason: LLQ PAIN, VOMITING EXAMS: CPT CODE: [id number] CT ABD PELVIS W/O CONT 59987 <Continued> Musculoskeletal structures and abdominal wall: Degenerative changes are present in the lower thoracic spine. IMPRESSION: Nonobstructing 3 mm stone in the inferior pole of the left kidney. No stones in the ureters or urinary bladder. No inflammatory changes of the left kidney are visualized. at 0856 Reported and signed by: Chin Rosa MD CC: Hayden Morales MD; Chintan Monsalve MD Technologist:Felisa Alejandro CTDI: DLP: Trnscb Date/Time: 06/08/2019 (0856) [email or web address] Orig Print D/T: S: 06/08/2019 (0817) PAGE 2 Signed Report URINALYSIS [id number] 08:21:00* Test Item Value Reference Range Interpretation Comments UA COLOR (test code = COLU) YELLOW YELLOW UA APPEARANCE (test code = APPU) SLIGHT HAZY CLEAR A UA GLUCOSE DIPSTICK (test code = DGLUU) 250 (2+) mg/dL NEGATIVE A UA BILIRUBIN DIPSTICK (test code = BILU) NEGATIVE mg/dL NEGATIVE UA KETONE DIPSTICK (test code = KETU) neg mg/dL NEGATIVE UA SPECIFIC GRAVITY (test code = SGU) 1.015 1.001-1.035 UA BLOOD DIPSTICK (test code = RANDA) neg Enmanuel/uL NEGATIVE UA PH DIPSTICK (test code = TOM) 6.0 5.0-8.0 UA PROTEIN DIPSTICK (test code = PROU) 30 (1+) mg/dL Neg-15 A UA UROBILINIOGEN DIPSTICK (test code = URO) norm mg/dL 0.0-0.2 UA NITRITE DIPSTICK (test code = AJ) POSITIVE NEGATIVE UA LEUKOCYTE ESTERASE DIPSTICK (test code = LEUU) 25 Dinorah/uL (Tra ce) uL NEGATIVE A UA WBC (test code = WBCU) 3-5 per HPF 0-5 UA RBC (test code = RBCU) 0-3 per HPF 0-5 UA EPITHELIAL CELLS (test code = EPIU) Few (2-5/hpf) per HPF Few UA BACTERIA (test code = BACU) FEW per HPF NONE UA MUCUS (test code = MUCU) FEW per LPF NONE-FEW Urine Source? Clean CatchBASIC METABOLIC [id number] 08:14:00* Test Item Value Reference Range Interpretation Comments SODIUM (test code = NA) 139 mmol/L 135-148 N POTASSIUM (test code = K) 4.2 mmol/L 3.5-5.1 N CHLORIDE (test code = CL) 99 mmol/L 101-109 L CARBON DIOXIDE (test code = CO2) 32.7 mmol/L 21-32 H ANION GAP (test code = GAP) 12 mmol/L 10-20 N GLUCOSE (test code = GLU) 257 mg/dL 74-106 H BLOOD UREA NITROGEN (test code = BUN) 10 mg/dL 3-21 N GLOMERULAR FILTRATION RATE (test code = GFR) > 60 mL/min >=60 Estimated GFR by using Modified MDRD formula.Chronic kidney disease is defined as either kidney damageor GFR <60 mL/min/1.73 m2 for >3 months. CREATININE (test code = CREAT) 0.70 mg/dL 0.55-1.3 N BUN/CREATININE RATIO (test code = BUN/CREA) 14.3 10-20 N CALCIUM (test code = CA) 9.3 mg/dL 8.4-10.2 N HEPATIC FUNCTION [id number] 08:14:00* Test Item Value Reference Range Interpretation Comments TOTAL PROTEIN (test code = PROT) 7.6 g/dL 6.5-8.4 N ALBUMIN (test code = ALB) 3.2 g/dL 3.4-4.8 L GLOBULIN (test code = GLOB) 4.4 G/DL 1-10 N ALBUMIN/GLOBULIN RATIO (test code = A/G) 0.7 RATIO 0.75-1.50 L BILIRUBIN TOTAL (test code = BILT) 0.30 mg/dL 0.0-1.0 N BILIRUBIN DIRECT (test code = BILD) 0.10 mg/dL 0.0-0.30 N SGOT/AST (test code = AST) 16 U/L 6-32 N SGPT/ALT (test code = ALT) 42 U/L 12-78 N N ote: Change in REFERENCE RANGE due to new reagent method. ALKALINE PHOSPHATASE TOTAL (test code = ALKP) 115 U/L 38-126 N [id number] 08:14:00* Test Item Value Reference Range Interpretation Comments LIPASE (test code = LIP) 78 U/L 128-270 L URINALYSIS [id number] 08:11:00* Test Item Value Reference Range Interpretation Comments UA COLOR (test code = COLU) YELLOW YELLOW UA APPEARANCE (test code = APPU) SLIGHT HAZY CLEAR A UA GLUCOSE DIPSTICK (test code = DGLUU) 250 (2+) mg/dL NEGATIVE A UA BILIRUBIN DIPSTICK (test code = BILU) NEGATIVE mg/dL NEGATIVE UA KETONE DIPSTICK (test code = KETU) neg mg/dL NEGATIVE UA SPECIFIC GRAVITY (test code = SGU) 1.015 1.001-1.035 UA BLOOD DIPSTICK (test code = RANDA) neg Enmanuel/uL NEGATIVE UA PH DIPSTICK (test code = TOM) 6.0 5.0-8.0 UA PROTEIN DIPSTICK (test code = PROU) 30 (1+) mg/dL Neg-15 A UA UROBILINIOGEN DIPSTICK (test code = URO) norm mg/dL 0.0-0.2 UA NITRITE DIPSTICK (test code = AJ) POSITIVE NEGATIVE UA LEUKOCYTE ESTERASE DIPSTICK (test code = LEUU) 25 Dinorah/uL (Tra ce) uL NEGATIVE A UA WBC (test code = WBCU) per HPF 0-5 UA RBC (test code = RBCU) per HPF 0-5 UA EPITHELIAL CELLS (test code = EPIU) per HPF Few UA BACTERIA (test code = BACU) per HPF NONE Urine Source? Clean CatchBASIC METABOLIC [id number] 08:10:00* Test Item Value Reference Range Interpretation Comments SODIUM (test code = NA) 139 mmol/L 135-148 N POTASSIUM (test code = K) 4.2 mmol/L 3.5-5.1 N CHLORIDE (test code = CL) 99 mmol/L 101-109 L CARBON DIOXIDE (test code = CO2) 32.7 mmol/L 21-32 H ANION GAP (test code = GAP) 12 mmol/L 10-20 N GLUCOSE (test code = GLU) 257 mg/dL 74-106 H BLOOD UREA NITROGEN (test code = BUN) 10 mg/dL 3-21 N GLOMERULAR FILTRATION RATE (test code = GFR) > 60 mL/min >=60 Estimated GFR by using Modified MDRD formula.Chronic kidney disease is defined as either kidney damageor GFR <60 mL/min/1.73 m2 for >3 months. CREATININE (test code = CREAT) 0.70 mg/dL 0.55-1.3 N BUN/CREATININE RATIO (test code = BUN/CREA) 14.3 10-20 N CALCIUM (test code = CA) 9.3 mg/dL 8.4-10.2 N HEPATIC FUNCTION [id number] 08:10:00* Test Item Value Reference Range Interpretation Comments TOTAL PROTEIN (test code = PROT) gram/dL 6.4-8.2 ALBUMIN (test code = ALB) g/dL 3.4-5.0 GLOBULIN (test code = GLOB) g/dL 2.7-4.2 ALBUMIN/GLOBULIN RATIO (test code = A/G) 0.75-1.50 BILIRUBIN TOTAL (test code = BILT) mg/dL 0.2-1.2 BILIRUBIN DIRECT (test code = BILD) mg/dL 0.0-0.20 SGOT/AST (test code = AST) IUnit/L 15-37 SGPT/ALT (test code = ALT) U/L 10-69 ALKALINE PHOSPHATASE TOTAL (test code = ALKP) IUnit/L 45-117 [id number] 08:10:00* Test Item Value Reference Range Interpretation Comments LIPASE (test code = LIP) Unit/L 144-286 CBC W/O [id number] 07:55:00* Test Item Value Reference Range Interpretation Comments WHITE BLOOD CELL (test code = WBC) 8.1 K/mm3 4.5-12.5 N RED BLOOD CELL (test code = RBC) 4.92 mill/mm3 3.7-5.2 N HEMOGLOBIN (test code = HGB) 12.8 gram/dL 11.5-15.5 N HEMATOCRIT (test code = HCT) 42.6 % 36.0-46.0 N MEAN CELL VOLUME (test code = MCV) 86.6 fL 80-98 N MEAN CELL HGB (test code = MCH) 26.0 picogram 27.0-33.0 L MEAN CELL HGB CONCETRATION (test code = MCHC) 30.0 gram/dL 33.0-36. 0 L RED CELL DISTRIBUTION WIDTH (test code = RDW) 14.2 % 11.6-16. 2 N RED CELL DISTRIBUTION WIDTH SD (test code = RDW-SD) 45.0 fL 37 .0-51.0 N PLATELET COUNT (test code = PLT) 254 K/mm3 150-450 N MEAN PLATELET VOLUME (test code = MPV) 10.2 fL 6.7-11.0 N
[2020-06-18] MEDS ORDERED: FENTANYL CITRATE/PF 100MCG/2 ML INJ IV ONE (04:45)
--- NOTE | 2020-06-18 05:01 | Emergency Department Note ---
History of Present Illnes History of Present Illness Chief Complaint: Abdominal Complaints History of Present Illness This is a 55 year old female arrived to the ED for 1 year history of left upper quadrant abdominal pain. Patient states pain is triggered by having barbecue for her daughter's birthday. . 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 Any updates have been documented here. Past Medical History Recent Fever: No Clinical Suspicion of Infectio: No New/Unexplained Change in Ment: No Past Medical History: Hypertension, Diabetes, Hypothyroidism, Seizure Disorder, GERD, Hyperlipedemia Other Medical History: GALLSTONES PVD SLEEP APNEA BILE SALT-INDUCED CHRONIC DIARRHEA OBESITY BRONCHITIS O2 DEPENDENT ASTHMA LYMPHEDEMA IBS NEUROPATHY Past Surgical History: Other Surgery: COLONOSCOPY Social History Smoking Cessation: Never Smoker Counseling Performed: No Alcohol Use: None Any Illegal Drug Use: No Review of Systems Review of Systems Constitutional: Reports no symptoms EENTM: Reports no symptoms Cardiovascular: Reports no symptoms Respiratory: Reports no symptoms Gastrointestinal: Reports as per HPI, Reports abdominal pain Genitourinary: Reports no symptoms Musculoskeletal: Reports no symptoms Integumentary: Reports no symptoms Neurological: Reports no symptoms Psychological: Reports no symptoms Endocrine: Reports no symptoms Hematological/Lymphatic: Reports no symptoms Physical Exam Related Data Allergies: Coded Allergies: Penicillins (Verified Allergy, Intermediate, 06/18/20) codeine (Verified Allergy, Intermediate, 06/18/20) exenatide (Verified Allergy, Intermediate, 06/18/20) hydralazine (Verified Allergy, Intermediate, 06/18/20) valsartan (Verified Allergy, Intermediate, 06/18/20) Triage Vital Signs Vital Signs Date Time Temp Pulse Resp B/P (MAP) Pulse Ox O2 Delivery O2 Flow Rate FiO2 06/18/20 03:53 98.4 112 27 108/86 100 Room Air Vital signs reviewed: Yes Physical Exam CONSTITUTIONAL Constitutional: Present well-developed, Present well-nourished, Present morbidly obese HENT HENT: Present normocephalic, Present atraumatic, Present oropharynx clear/moist, Present nose normal HENT L/R: Present left ext ear normal, Present right ext ear normal EYES Eyes: Reports PERRL, Reports conjunctivae normal NECK Neck: Present ROM normal PULMONARY Pulmonary: Present effort normal, Present breath sounds normal CARDIOVASCULAR Cardiovascular: Present regular rhythm, Present heart sounds normal, Present capillary refill normal, Present normal rate GASTROINTESTINAL Abdominal: Present soft, Present bowel sounds normal, Present tender, Present guarding GENITOURINARY Genitourinary: Present exam deferred SKIN Skin: Present warm, Present dry MUSCULOSKELETAL Musculoskeletal: Present ROM normal NEUROLOGICAL Neurological: Present alert, Present oriented x 3, Present no gross motor or sensory deficits PSYCHOLOGICAL Psychological: Present mood/affect normal, Present judgement normal Results Laboratory Result Diagram: 06/18/20 0345 06/18/20 0345 Laboratory Laboratory Tests Test 06/18/20 03:45 White Blood Count 10.95 x10e3/uL (4.8-10.8) Red Blood Count 4.85 x10e6/uL (3.6-5.1) Hemoglobin 13.1 g/dL (12.0-16.0) Hematocrit 42.7 % (34.2-44.1) Mean Corpuscular Volume 88.0 fL (81-99) Mean Corpuscular Hemoglobin 27.0 pg (28-32) Mean Corpuscular Hemoglobin Concent 30.7 g/dL (31-35) Red Cell Distribution Width 14.2 % (11.7-14.4) Platelet Count 237 x10e3/uL (140-360) Neutrophils (%) (Auto) 78.2 % (38.7-80.0) Lymphocytes (%) (Auto) 14.3 % (18.0-39.1) Monocytes (%) (Auto) 5.8 % (4.4-11.3) Eosinophils (%) (Auto) 0.6 % (0.0-6.0) Basophils (%) (Auto) 0.4 % (0.0-1.0) Neutrophils # (Auto) 8.6 (2.1-6.9) Lymphocytes # (Auto) 1.6 (1.0-3.2) Monocytes # (Auto) 0.6 (0.2-0.8) Eosinophils # (Auto) 0.1 (0.0-0.4) Basophils # (Auto) 0.0 (0.0-0.1) Absolute Immature Granulocyte (auto 0.08 x10e3/uL (0-0.1) Sodium Level 138 mmol/L (136-145) Potassium Level 4.1 mmol/L (3.5-5.1) Chloride Level 96 mmol/L (98-107) Carbon Dioxide Level 27 mmol/L (22-29) Anion Gap 19.1 mmol/L (8-16) Blood Urea Nitrogen 10 mg/dL (7-26) Creatinine 0.76 mg/dL (0.57-1.11) Estimat Glomerular Filtration Rate > 60 ML/MIN (60-) BUN/Creatinine Ratio 13 (6-25) Glucose Level 267 mg/dL (74-118) Calcium Level 9.6 mg/dL (8.4-10.2) Total Bilirubin 0.7 mg/dL (0.2-1.2) Aspartate Amino Transf (AST/SGOT) 29 IU/L (5-34) Alanine Aminotransferase (ALT/SGPT) 41 IU/L (0-55) Alkaline Phosphatase 105 IU/L (40-150) Creatine Kinase 442 IU/L (29-168) Creatine Kinase MB 0.70 ng/mL (0-5.0) Troponin I < 0.001 ng/mL (0-0.300) Total Protein 8.1 g/dL (6.5-8.1) Albumin 3.3 g/dL (3.5-5.0) Globulin 4.8 g/dL (2.3-3.5) Albumin/Globulin Ratio 0.7 (0.8-2.0) Lab results reviewed: Yes Imaging Imaging results reviewed: Yes Assessment & Plan Medical Decision Making MDM 55-year-old female arrives the ED with complaints of right upper quadrant abdominal pain. Patient's labwork unremarkable. Patient pending CT abdomen and pelvis. Case signed out to Dr. Majano follow-up CT abdomen and pelvis dispo pt Assessment & Plan Final Impression: (1) Abdominal pain Depart Disposition: HOME, SELF-CARE Last Vital Signs Date Time Temp Pulse Resp B/P (MAP) Pulse Ox O2 Delivery O2 Flow Rate FiO2 06/18/20 04:28 109 32 141/89 Room Air 06/18/20 03:53 98.4 100 Medications in the ED Sodium Chloride 1,000 ml @ ud STK-MED ONCE .ROUTE ; Start 06/18/20 at 03:56; Stop 06/18/20 at 03:49; Status DC Sodium Chloride 1,000 ml @ 0 mls/hr Q0M STAT IV Last administered on 06/18/20at 03:57; Admin Dose 999 MLS/HR; Start 06/18/20 at 03:51; Stop 06/18/20 at 03:52 Ketorolac Tromethamine 30 mg ONCE STAT IV Last administered on 06/18/20at 04:24; Admin Dose 30 MG; Start 06/18/20 at 03:51; Stop 06/18/20 at 03:52 Ondansetron HCl 4 mg NOW STAT IV Last administered on 06/18/20at 04:24; Admin Dose 4 MG; Start 06/18/20 at 03:51; Stop 06/18/20 at 03:52 JOANN ELENA DO Jun 18, 2020 05:00
[2020-06-18] MEDS ORDERED: IOPAMIDOL 370 MG/ML 200 ML INFUS..BTL INJ ONE (06:25)
[2020-06-18] MEDS ORDERED: SODIUM CHLORIDE 0.9% 50ML 50 ML ONE (06:25)
--- NOTE | 2020-06-18 07:01 | Diagnostic Imaging Report ---
EXAM: CT Abdomen and Pelvis WITH contrast INDICATION: Right upper quadrant pain, Left upper quadrant pain per notes COMPARISON: None. TECHNIQUE: Abdomen and pelvis were scanned utilizing a multidetector helical scanner from the lung base to the pubic symphysis after administration of IV contrast. Coronal and sagittal reformations were obtained. Routine protocol was performed. Scan was performed when during portal venous phase. IV CONTRAST: 100 mL of Isovue 370 ORAL CONTRAST: None COMPLICATIONS: None RADIATION DOSE: Total DLP: 1267 mGy*cm Estimated effective dose: (DLP x 0.015 x size factor) mSv CTDIvol has been reviewed. It is below the limits set by the Radiation Protocol Committee (RPC). Dose modulation, iterative reconstruction, and/or weight based adjustment of the mA/kV was utilized to reduce the radiation dose to as low as reasonably achievable. FINDINGS: LINES and TUBES: None. LOWER THORAX: Subtle atelectasis in the lower lungs. HEPATOBILIARY: Enlarged hypodense liver. No focal hepatic lesions. No biliary ductal dilation. GALLBLADDER: No radio-opaque stones or sludge. No wall thickening. SPLEEN: No splenomegaly. PANCREAS: No focal masses or ductal dilatation. ADRENALS: No adrenal nodules KIDNEYS/URETERS: A 5 mm calculus in the mid left ureter with mild upstream left hydroureteronephrosis. Asymmetric left renal hypoenhancement. Mild left perinephric fat stranding. No cystic or solid mass lesions. GI TRACT: No abnormal distention, wall thickening, or evidence of bowel obstruction. Appendix is normal. PELVIC ORGANS/BLADDER: Hysterectomy. No adnexal masses. Urinary bladder unremarkable. LYMPH NODES: No lymphadenopathy. VESSELS: Left ovarian vein phleboliths. Arterial calcifications. PERITONEUM / RETROPERITONEUM: No free air or fluid. BONES: Degenerative changes. SOFT TISSUES: Unremarkable. IMPRESSION: A 5 mm calculus in the mid left ureter with mild upstream left hydroureteronephrosis. Superimposed infection is possible. Hepatomegaly with hepatic steatosis. Signed by: Angel Price DO on 06/18/2020 6:58 AM
--- NOTE | 2020-06-18 07:10 | NUR ---
report given to blas fierro
--- NOTE | 2020-06-18 07:19 | NUR ---
REPORT REC'D FROM ANA ESCOBAR PT RESTING COMFORTABLY IN BED, A/O x3, BREATHING EVEN/UNLABORED ON 2L/NC/O2 LLQ TENDERNESS, AWAITING RESULTS, NAD AT THIS TIME
[2020-06-18 07:42] LABS: CLARITY,URINE CLEAR (CLEAR); COLOR,URINE YELLOW (YELLOW)
[2020-06-18 07:43] LABS: KETONES,URINE TRACE (NEGATIVE); LEUKOCYTE ESTERASE ,URINE TRACE (NEGATIVE); NITRITE,URINE NEGATIVE (NEGATIVE); PROTEIN,URINE DIPSTICK 2+ (NEGATIVE)
[2020-06-18 07:44] LABS: AMPHETAMINES SCREEN,URINE NEGATIVE (NEGATIVE); BENZODIAZEPINES SCREEN,URINE NEGATIVE (NEGATIVE); BILIRUBIN,URINE SMALL (NEGATIVE); PHENCYCLIDINE SCREEN,URINE NEGATIVE (NEGATIVE); URINE UROBILINOGEN 1 mg/dL (0.2 - 1)
[2020-06-18 07:52] LABS: BACTERIA,URINE RARE /HPF; EPITHELIAL CELLS,URINE FEW /LPF; WBC,URINE (MAN) 21-50 /HPF (0-5)
[2020-06-18 08:37] VITALS: BP 111/72
== END 2020-06-18 08:39 | disposition home or self-care (01) ==
LOC: ER 04:24
DX: R10.12 Left upper quadrant pain (principal); I10 Essential (primary) hypertension; E11.9 Type 2 diabetes mellitus without complications; E78.5 Hyperlipidemia, unspecified; K21.9 Gastro-esophageal reflux disease without esophagitis; G40.909 Epilepsy, unspecified, not intractable, without status epilepticus; G47.30 Sleep apnea, unspecified; Z99.81 Dependence on supplemental oxygen
CPT/HCPCS: 36415; 74177; 80053; 80307; 81001; 82550; 82553; 83690; 84484; 85025; 99284; J1885; J2405; J3010; J7030; Q9967

== ENCOUNTER 2020-06-19 22:49 | Emergency (ER) | payer SELFPAY ==
[~2020-06-19] VITALS: Ht 154.9 cm; Wt 148.8 kg
--- NOTE | 2020-06-19 23:02 | Emergency Department Note ---
History of Present Illnes History of Present Illness Chief Complaint: Respiratory History of Present Illness This is a 55 year old female returns to the ER for dyspnea after ana ng seen yesterday for UTI with kidney stone. . 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 Any updates have been documented here. Past Medical History Recent Fever: Yes Clinical Suspicion of Infectio: Yes New/Unexplained Change in Ment: No Past Medical History: Hypertension, Diabetes, Hypothyroidism, Seizure Disorder, GERD, Hyperlipedemia Other Medical History: GALLSTONES PVD SLEEP APNEA BILE SALT-INDUCED CHRONIC DIARRHEA OBESITY BRONCHITIS O2 DEPENDENT ASTHMA LYMPHEDEMA IBS NEUROPATHY Past Surgical History: Other Surgery: COLONOSCOPY Social History Smoking Cessation: Never Smoker Alcohol Use: None Any Illegal Drug Use: No Review of Systems Review of Systems Constitutional: Reports weakness EENTM: Reports no symptoms Cardiovascular: Reports no symptoms Respiratory: Reports dyspnea Gastrointestinal: Reports no symptoms Genitourinary: Reports no symptoms Musculoskeletal: Reports no symptoms Integumentary: Reports no symptoms Neurological: Reports no symptoms Psychological: Reports no symptoms Endocrine: Reports no symptoms Hematological/Lymphatic: Reports no symptoms Physical Exam Related Data Allergies: Coded Allergies: Penicillins (Verified Allergy, Intermediate, 06/18/20) codeine (Verified Allergy, Intermediate, 06/18/20) exenatide (Verified Allergy, Intermediate, 06/18/20) hydralazine (Verified Allergy, Intermediate, 06/18/20) valsartan (Verified Allergy, Intermediate, 06/18/20) Triage Vital Signs Vital Signs Date Time Temp Pulse Resp B/P (MAP) Pulse Ox O2 Delivery O2 Flow Rate FiO2 06/19/20 23:17 98.2 115 32 116/75 97 Nasal Cannula 4.0 Vital signs reviewed: Yes Physical Exam CONSTITUTIONAL Constitutional: Present morbidly obese, Present distressed HENT HENT: Present normocephalic, Present atraumatic, Present oropharynx clear/moist, Present nose normal HENT L/R: Present left ext ear normal, Present right ext ear normal EYES Eyes: Reports PERRL, Reports conjunctivae normal NECK Neck: Present ROM normal PULMONARY Pulmonary: Present respiratory distress, Present other (decreased BS) CARDIOVASCULAR Cardiovascular: Present LLE edema, Present RLE edema GASTROINTESTINAL Abdominal: Present soft, Present nontender, Present bowel sounds normal GENITOURINARY Genitourinary: Present exam deferred SKIN Skin: Present warm, Present dry MUSCULOSKELETAL Musculoskeletal: Present ROM normal NEUROLOGICAL Neurological: Present alert, Present oriented x 3, Present no gross motor or sensory deficits PSYCHOLOGICAL Psychological: Present mood/affect normal, Present judgement normal Results Laboratory Lab results reviewed: Yes Laboratory comments Laboratory Tests Test 06/20/20 03:38 06/20/20 00:57 06/20/20 00:30 06/19/20 23:32 Lactic Acid Level 2.2 mmol/L (0.5-2.0) 2.1 mmol/L (0.5-2.0) Coronavirus (PCR) Not detected (NOTDETECTED) White Blood Count 13.61 x10e3/uL (4.8-10.8) Red Blood Count 3.89 x10e6/uL (3.6-5.1) Hemoglobin 10.6 g/dL (12.0-16.0) Hematocrit 33.8 % (34.2-44.1) Mean Corpuscular Volume 86.9 fL (81-99) Mean Corpuscular Hemoglobin 27.2 pg (28-32) Mean Corpuscular Hemoglobin Concent 31.4 g/dL (31-35) Red Cell Distribution Width 14.5 % (11.7-14.4) Platelet Count 223 x10e3/uL (140-360) Neutrophils (%) (Auto) 86.1 % (38.7-80.0) Lymphocytes (%) (Auto) 7.6 % (18.0-39.1) Monocytes (%) (Auto) 5.0 % (4.4-11.3) Eosinophils (%) (Auto) 0.1 % (0.0-6.0) Basophils (%) (Auto) 0.3 % (0.0-1.0) Neutrophils # (Auto) 11.7 (2.1-6.9) Lymphocytes # (Auto) 1.0 (1.0-3.2) Monocytes # (Auto) 0.7 (0.2-0.8) Eosinophils # (Auto) 0.0 (0.0-0.4) Basophils # (Auto) 0.0 (0.0-0.1) Absolute Immature Granulocyte (auto 0.12 x10e3/uL (0-0.1) Sodium Level 133 mmol/L (136-145) Potassium Level 3.4 mmol/L (3.5-5.1) Chloride Level 94 mmol/L (98-107) Carbon Dioxide Level 27 mmol/L (22-29) Anion Gap 15.4 mmol/L (8-16) Blood Urea Nitrogen 16 mg/dL (7-26) Creatinine 1.23 mg/dL (0.57-1.11) Estimat Glomerular Filtration Rate 45 ML/MIN (60-) BUN/Creatinine Ratio 13 (6-25) Glucose Level 321 mg/dL (74-118) Calcium Level 9.5 mg/dL (8.4-10.2) Total Bilirubin 0.4 mg/dL (0.2-1.2) Aspartate Amino Transf (AST/SGOT) 20 IU/L (5-34) Alanine Aminotransferase (ALT/SGPT) 32 IU/L (0-55) Alkaline Phosphatase 95 IU/L (40-150) B-Type Natriuretic Peptide 58.3 pg/mL (0-100) Total Protein 7.0 g/dL (6.5-8.1) Albumin 2.4 g/dL (3.5-5.0) Globulin 4.6 g/dL (2.3-3.5) Albumin/Globulin Ratio 0.5 (0.8-2.0) Imaging Imaging results reviewed: Yes Impressions [place] [id number] Patient Name: TIFFANIE HALL MR #: [id number] : 1965 Age/Sex: 55/F Req #: [id number] Adm Physician: Ordered by: SONIA SIFUENTES DO Report #: [id number] Location: ER Room/Bed: Procedure: [id number] CT/CT CHEST W Exam Date: 06/20/20 Exam Time: 0145 REPORT STATUS: Signed EXAM: CT Chest WITH contrast 06/20/2020 1:45 AM INDICATION: dyspnea COMPARISON: CT dated 06/18/2020. TECHNIQUE: Chest was scanned utilizing a multidetector helical scanner from the lung apex through the level of the adrenal glands with administration of IV contrast. Coronal and sagittal reformations were obtained. Routine protocol was performed. IV CONTRAST: 100 mL of Omnipaque 300 COMPLICATIONS: None RADIATION DOSE: Total DLP: 461.11 mGy*cm Estimated effective dose: (DLP x 0.014 x size factor) mSv CTDIvol has been reviewed. It is below the limits set by the Radiation Protocol Committee (RPC). Dose modulation, iterative reconstruction, and/or weight based adjustment of the mA/kV was utilized to reduce the radiation dose to as low as reasonably achievable. FINDINGS: LINES/ TUBES: None. LUNGS AND AIRWAYS: Mildly suboptimal contrast opacification of the pulmonary arteries and body habitus limit evaluation of the segmental and subsegmental pulmonary arteries. No central or lobar filling defects. Mosaic attenuation of the lung parenchyma. Bands of atelectasis in the right middle and lower lobes. Central airways are normal. PLEURA: The pleural spaces are clear. HEART AND MEDIASTINUM: The thyroid gland is normal. No mediastinal, hilar or axillary lymphadenopathy. The heart is normal in size. There is no pericardial effusion. UPPER ABDOMEN: Hepatic steatosis.. BONES: The visualized bony thorax is within normal limits. SOFT TISSUES: Unremarkable. IMPRESSION: 1. Limited evaluation of the segmental and subsegmental pulmonary arteries. No central or lobar pulmonary emboli. 2. Mosaic attenuation of the lung parenchyma suggests small airways disease. Bibasilar atelectasis. No pneumonia. 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: Interpreted by ED physician Date: Jun 19, 2020 Time: 23:43 Prior ECG tracings: reviewed Rhythm: sinus rhythm Rate: normal BPM: 68 QRS axis: normal ST segments normal: Yes T waves normal: Yes Critical Care Time Total Critical Care Time (min): 31 Critcal care necessary due to: respiratory failure, sepsis, shock Critcal care time spent by me: examination of patient, obtaining hx from patient/surrogate, order/perform tx or interventions, order/review laboratory studies, order/review radiographic studies, pulse oximetry, re-evaluation of patient condition, review of old charts Assessment & Plan Medical Decision Making MDM 55 yof returns with dyspnea . Diff Dx : Covid 19 infection URI , ACS, CHF, PE, Pneumonia, PTX, Sepsis, Urosepsis Reassessment Reassessment time: 00:38 Reassessment Time zero for SEP1 starting now. Patient initially with dyspnea but patient with elevated WBC and a confirmed source of infection from urine sample taken yesterday. Assessment & Plan Final Impression: (1) Sepsis (2) UTI (urinary tract infection) (3) Dyspnea (4) Kidney stone on left side Depart Disposition: TRANS TO OTHER [facility] SONIA SIFUENTES DO Jun 19, 2020 23:02
[2020-06-19 23:48] LABS: BASOPHILS % 0.3 % (0.0-1.0); EOSINOPHILS % 0.1 % (0.0-6.0); HEMATOCRIT 33.8 % (34.2-44.1); HEMOGLOBIN 10.6 g/dL (12.0-16.0); LYMPHOCYTES % 7.6 % (18.0-39.1); MEAN CORPUSCULAR HEMOGLOBIN 27.2 pg (28-32); MEAN CORPUSCULAR HGB CONC 31.4 g/dL (31-35); MEAN CORPUSCULAR VOLUME 86.9 fL (81-99); MONOCYTES # (AUTO) 0.7 (0.2-0.8); NEUTROPHILS # (AUTO) 11.7 (2.1-6.9); NEUTROPHILS % 86.1 % (38.7-80.0); PLATELET COUNT 223 x10e3/uL (140-360); RED BLOOD COUNT 3.89 x10e6/uL (3.6-5.1); RED CELL DISTRIBUTION WIDTH 14.5 % (11.7-14.4)
[2020-06-20 00:05] LABS: ALBUMIN 2.4 g/dL (3.5-5.0); ALBUMIN/GLOBULIN RATIO 0.5 (0.8-2.0); ANION GAP 15.4 mmol/L (8-16); CALCIUM 9.5 mg/dL (8.4-10.2); CREATININE, SERUM 1.23 mg/dL (0.57-1.11); POTASSIUM 3.4 mmol/L (3.5-5.1)
--- OUTSIDE RECORDS SUMMARY | 2020-06-20 00:49 | XMS REPORT | Clinical Summary ---
Author Author [facility] Organization [facility] Address Unknown Phone Unavailable Care Team Providers Care Residential Child Care Counselor Name Role Phone Asked, No Pcp PCP [...] Deepa Zelaya RPH 07/13/2019 Patient Quality Outreach [place] Freddy Ornelas MD Yerramadha, Muralidhar Reddy, MD Seizure (HCC) (Primary Dx); Dyspnea, unspecified type; Lower extremity edema; SOB (shortness of breath) on exertion; CARL (obstructive sleep apnea) 07/08/2019 Emergency General Internal Ri dicine - 07/10/2019 after 06/20/2019 Social History Date Tobacco Use Types Packs/Day [...] Routine 07/08/2019 INTERPRETATION 5:00 PM CDT after 06/20/2019 Results * POC glucose (07/10/2019 11:32 AM CDT) Only the most recent of 7 results within the time period is included. [facility] POC glucose 126 (H) 65 - 99 mg/dL [facility] Comment: JESS GLOVER Meter ID: [id number] [facility] Tire Room Supervisor: Chas Anderson Specimen Performing Organization Address City/[facility] [place] Ph one Number [facility] DEPARTMENT [place] [id number] [place] [address] [place], [place] [address] PATHOLOGY AND GENOMIC MEDICINE [facility] [address] [place] [id number] [facility] * Smear review (07/10/2019 6:37 AM CDT) Only the most recent of 2 results within the time period is included. [facility] Platelet slide Yanick adequate [facility] review [facility] Anisocytosis Slight [facility] Enlarged Few [facility] platelets [facility] Anisochromia Slight [facility] Specimen Performing Organization Address City/[facility] [place] Ph one Number [facility] [place] [id number] [place] [address] [place] [address] PATHOLOGY AND GENOMIC MEDICINE [facility] [place] [id number] [place] [address] [place] [id number] [facility] * Estimated GFR (07/10/2019 6:37 AM CDT) Only the most recent of 3 results within the time period is included. [facility] Estimated GFR >=90 mL/min/1.73 m2 [facility] Interpretation G1 >=90 Normal or high G2 [...] 2014. Specimen Plasma specimen Performing Organization Address City/[facility] Ph one Number [facility] [place] [address] [address] [place], [place] [address] PATHOLOGY AND GENOMIC MEDICINE [facility] [address] [address] [place] [address] [facility] * CBC with platelet and differential (07/10/2019 6:37 AM CDT) Only the most recent of 3 results within the time period is included. WBC 7.60 4.50 - 11.00 k/uL [facility] RBC 4.48 4.20 - 5.50 m/uL [facility] HGB 11.8 (L) 12.0 - 16.0 g/dL [facility] HCT 40.6 37.0 - 47.0 % [facility] MCV 90.6 82.0 - 100.0 fL [facility] MCH 26.3 (L) 27.0 - 34.0 pg [facility] MCHC 29.1 (L) 31.0 - 37.0 g/dL [facility] RDW - SD 50.4 37.0 - 55.0 fL [facility] MPV 10.4 8.8 - 13.2 fL [facility] Platelet count 218 150 - 400 k/uL [facility] Nucleated RBC 0.00 /100 WBC [facility] Neutrophils 63.2 39.0 - 69.0 % [facility] Lymphocytes 29.2 25.0 - 45.0 % [facility] Monocytes 5.0 0.0 - 10.0 % [facility] Eosinophils 1.8 0.0 - 5.0 % [facility] Basophils 0.4 0.0 - 1.0 % RASHID [facility] Specimen Blood Performing Organization Address City/State/[facility] Ph one Number [facility] [place] [place] [address] [address] [place], [place] [address] PATHOLOGY AND GENOMIC MEDICINE [facility] [address] [address] * Basic metabolic panel (07/10/2019 6:37 AM CDT) Sodium 143 135 - 148 mEq/L [facility] Potassium 4.0 3.5 - 5.0 mEq/L [facility] Chloride 101 98 - 112 mEq/L [facility] CO2 33 (H) 24 - 31 mEq/L [facility] Anion gap 9@ANIO 7 - 15 mEq/L [facility] BUN 18 6 - 20 mg/dL [facility] Creatinine 0.50 0.50 - 0.90 mg/dL [facility] Glucose 93 65 - 99 mg/dL [facility] Calcium 9.6 8.3 - 10.2 mg/dL [facility] Specimen Plasma specimen Performing Organization Address [facility] [place] Ph one Number [facility] [place] [place] [address] [address] [place] [address] PATHOLOGY AND GENOMIC MEDICINE [facility] [address] * Gram stain (07/09/2019 6:02 AM CDT) Gram stain No WBC's [facility] result Few Gram positive rods [facility] Comment: HOSPITAL Specimen Information Specimen Source: Urine Specimen Site: Clean catch Specimen Urine Performing Organization Address City/[facility] Ph one Number [facility] DEPARTMENT OF [address] [place] [address] PATHOLOGY AND GENOMIC MEDICINE [facility] * Urine culture (07/09/2019 6:02 AM CDT) Urine culture Mixed miguel <=10-3 col/cc [facility] isolate Comment: [facility] Specimen Information [facility] Specimen Source: Urine Specimen Site: Clean catch Specimen Urine Performing Organization Address City/State/Zipcode Ph one Number [facility] DEPARTMENT OF [address] [place] [address] PATHOLOGY AND GENOMIC MEDICINE [address] * Comprehensive metabolic panel (07/09/2019 5:57 AM CDT) Only the most recent of 2 results within the time period is included. Sodium 140 135 - 148 mEq/L [facility] Potassium 4.0 3.5 - 5.0 mEq/L [facility] Chloride 100 98 - 112 mEq/L [facility] CO2 30 24 - 31 mEq/L [facility] Anion gap 10@ANIO 7 - 15 mEq/L [facility] BUN 15 6 - 20 mg/dL [facility] Creatinine 0.50 0.50 - 0.90 mg/dL [facility] Glucose 186 (H) 65 - 99 mg/dL [facility] Calcium 9.2 8.3 - 10.2 mg/dL [facility] Protein 6.8 6.3 - 8.3 g/dL [facility] Comment: [facility] 4.6-7.0 g/dL 1 week 4.4-7.6 g/dL 7 months-1year 5.1-7.3 g/dL 1-2 years 5.6-7.5 g/dL >3 years 6.0-8.0 g/dL 18-150 6.3-8.3 g/dL Albumin 3.6 3.5 - 5.0 g/dL [facility] A/G ratio 1.1 0.7 - 3.8 [facility] Alkaline 92 35 - 104 U/L [facility] phosphatase [facility] AST 19 10 - 35 U/L [facility] ALT 30 5 - 50 U/L [facility] Total bilirubin 0.2 0.0 - 1.2 mg/dL [facility] Specimen Plasma specimen Performing Organization Address City/State/Zipcode Ph one Number [facility] [place] [address] [address] [place], [place] [address] PATHOLOGY AND GENOMIC MEDICINE [facility] [address] [address] [place] [address] [facility] * Urinalysis screen and microscopy, with reflex to culture (07/09/2019 5:28 AM CDT) Specimen site Clean catch [facility] Color, UA Shayla [facility] Appearance, UA Clear [facility] Specific 1.010 1.001 - 1.035 [facility] gravity, UA [facility] pH, UA 6.0 5.0 - 8.5 [facility] Protein, UA Negative Negative [facility] Glucose, UA 2+ (A) Negative [facility] Ketones, UA Negative Negative [facility] Bilirubin, UA Negative Negative [facility] Blood, UA Negative Negative [facility] Nitrite, UA Positive (A) Negative [facility] Urobilinogen, Negative <2.0 [facility] Leukocyte Negative Negative [facility] esterase, UA [facility] Epithelial Moderate Few /HPF [facility] cells, UA [facility] WBC, UA 0-5 0 - 4 /HPF [facility] RBC, UA 0-5 0 - 5 /HPF [facility] Bacteria, UA Few None seen [facility] Yeast, UA None seen [facility] Yeast with None seen [facility] pseudohyphae, [facility] Specimen Urine Performing Organization Address City/[facility] [place] Ph one Number [facility] [place] [address] [address] [place] [address] PATHOLOGY AND GENOMIC MEDICINE [facility] [address] [address] [place] [address] [facility] * ECG 12 lead (07/09/2019 4:39 AM CDT) Only the most recent of 3 results within the time period is included. Ventricular 80 [facility] rate Atrial rate 80 [facility] TX interval 154 [facility] QRSD interval 78 [facility] QT interval 382 [facility] QTC interval 440 [facility] P axis 1 30 [facility] QRS axis 1 21 [facility] T wave axis 18 [facility] EKG impression Normal sinus rhythm (cited on [facility] MUS E or before 08-MAY-2019)-Normal ECG-In automated comparison with ECG of 09-JUL-2019 00:12,-No significant change was found- Specimen Narrative Performed At This result has an attachment that is n ot available. Performing Organization Address City/[facility] [place] Ph one Number [facility] MUSE [address] [place] [address] * Troponin (07/09/2019 1:00 AM CDT) Only the most recent of 3 results within the time period is included. Troponin <0.006 0.000 - 0.040 ng/mL [facility] Comment: [facility] changed methodology effective: 03/02/2019 at 10:00 am The new method has a 99th percentile cutoff of 0.040 ng/mL Specimen Plasma specimen Performing Organization Address City/[facility] [place] Ph one Number [facility] [place] [address] [place] [address] PATHOLOGY AND GENOMIC MEDICINE [facility] [address] [place] [address] [facility] * Lipid panel (07/08/2019 9:00 PM CDT) Cholesterol 192 <200 mg/dL [facility] Triglycerides 174 (A) <150 mg/dL [facility] HDL cholesterol 45 >40 mg/dL [facility] LDL cholesterol 143 (H)Comment: Result <100 mg/dL [facility] N obtained by direct LDL [facility] measurement [facility] Lipid panel SeeBelow [facility] interpretation Comment: [facility] Total Cholesterol (mg/dL) [facility] <200 Desirable 200-239 Borderline-high >=240 High [...] mg/dL) Specimen Plasma specimen Performing Organization Address City/[facility]/Zipcode Ph one Number [facility] [place] [address] [address] [place] [address] PATHOLOGY AND GENOMIC MEDICINE [facility] [place] [id number] [place] [address] [place] [address] [facility] * Us duplex venous lower extremity (07/08/2019 7:32 PM CDT) Specimen Narrative Performed At [facility] Bilateral lower extremity venous duplex ultrasound does not show evidence of venous thrombosis in the visualized veins. Normal compression or augmentation is s een. Performing Organization Address [facility] one Number [facility] [address] [place] [address], [place] * XR Chest 2 Vw (07/08/2019 [...] is degenerative change of the thoracic spine. [facility]-[id number] Procedure Note Interface, Radiology Results Incoming - [...] is degenerative change of the thoracic spine. [facility]-[id number] Performing Organization Address [facility] one Number [facility] [address] [place] [address] * Partial thromboplastin time, activated (07/08/2019 5:05 PM CDT) PTT 24.8 23.0 - 36.0 sec [facility] Comment: [facility] CLEAR PTT therapeutic range for [facility] unfractionated heparin is 61.0-112.0 seconds which corresponds to Anti-Xa 0.3-0.7 U/ml. Specimen Blood Performing Organization Address City/State/Zipcode Ph one Number [facility] [place] [place] [address] [address] [place] [address] PATHOLOGY AND GENOMIC MEDICINE [facility] JESS GLOVER [address] [address] [address] [place], [place] [address] [place] [address] * Prothrombin time with INR (07/08/2019 5:05 PM CDT) Prothrombin 12.5 11.5 - 14.5 sec [facility] time [facility] INR 1.0 [facility] Comment: JESS GLOVER The International Normalized [facility] Ratio (INR) is a therapeutic monitoring tool for patients who are stable on oral anticoagulant therapy. An INR of 2.0-3.0 is suggested for deep vein thrombosis/pulmonary embolism. Specimen Blood Performing Organization Address [facility] one Number [facility] [place] [address] [address] [place] [address] PATHOLOGY AND [facility] MEDICINE [facility] [address] [address] * D-dimer (07/08/2019 5:05 PM CDT) Pathologist [facility] D-dimer 0.56 (H) 0.00 - 0.40 ug/mL [facility] Comment: FEU [facility] Units are ug/ml Fibrinogen [facility] Equivalent Unit. When combined with low [...] and malignancies. Specimen Blood Performing Organization Address [facility] one Number [facility] [place] [address] [place] [address] PATHOLOGY AND [facility] MEDICINE [facility] [address] [address] * B natriuretic peptide (07/08/2019 5:05 PM CDT) BNP 14 0 - 100 pg/mL [facility] Specimen Blood Performing Organization Address City/[facility] one Number [facility] [place] [address] [place] [address] PATHOLOGY AND [facility] MEDICINE [facility] [address] [address] * Creatine kinase, total (CPK) (07/08/2019 5:05 PM CDT) Creatine kinase 34 26 - 192 U/L [facility] Specimen Plasma specimen Performing Organization Address City/[facility] [place] Ph one Number [facility] [place] [address] [address] [place] [address] PATHOLOGY AND GENOMIC MEDICINE [facility] [place] [address] [place] [id number] [facility] * Phenytoin level (07/08/2019 5:05 PM CDT) Phenytoin <0.8 (A) 10.0 - 20.0 ug/mL [facility] Comment: [facility] Therapeutic Range: [facility] 10 - 20 ug/mL Specimen Plasma specimen Performing Organization Address [facility] [place] [facility] Ph one Number [facility] [place] [address] [address] [place] [address] PATHOLOGY AND GENOMIC MEDICINE [facility] [place] [address] [address] [place] [id number] [facility] * ECG ED Preliminary Interpretation - Not an Order (07/08/2019 5:00 PM CDT) Narrative Performed At Sherie Mata NP-C 07/09/2019 5:41 AM ECG ED Preliminary Interpretation - Not an Order Performed by: Sherie Mata NP-C Authorized by: Freddy Engle MD ECG reviewed by ED Physician in the abs ence of a environmental lead: yes Previous ECG: Previous ECG: Compared to [...] Normal T waves: T waves: normal after 06/20/2019 Additional Health Concerns Resolved Time Infection Noted Time C.Difficile (E) 01/22/2019 9:51 AM CDT Advance Directives For more information, please contact: [phone] Patient Tactical Deception Plans Officer Explanation Type Date Recorded Advance Directives, 01/20/2019 1:21 AM Living Will and Medical Power of Vocational Technical Education Director
--- OUTSIDE RECORDS SUMMARY | 2020-06-20 00:50 | XMS REPORT | Continuity of Care Document ---
Author Author [facility] Organization [facility] Address [address] [place] [address] Phone Unavailable Care Team Providers Care Packaging Supervisor Name Role Phone NAV MAYBERRY PCP Cally ELENA Attphys Unavailable [facility], Deepa Attphys Unavailable Juan Ornelas MD, Puneet Hayes Attphys Paola HICKS, Shahzad Jarvis Attphys [phone] Payers Payer Name Policy Type Policy Number [...] colic Disease Active 2019-01-20 00:00:00 Dannie Knight Abdominal pain Problem Active [facility] Allergies, Adverse Reactions, Alerts Allergy Name Allergy Type Status Severity Reaction(s) Onset Date Inacti ve Date Treating Clinician Comments Source Penicillin Allergy to substance Active Moderate 2020-06-18 00:00:[address] [facility] Codeine Allergy to substance Active Moderate 2020-06-18 00:00:[address] [facility] Hydralazine Allergy to substance Active Moderate 2020-06-18 00:00: [address] [facility] Valsartan Allergy to substance Active Moderate 2020-06-18 00:00:[address] [facility] Exenatide Allergy to substance Active Moderate 2020-06-18 00:00:[address] [facility] Penicillins DA Active U 2019-06-08 00:00:00 [facility] codeine DA Active U 2019-06-08 00:00:00 [facility] hydralazine DA Active SV 2019-06-08 00:00:00 [facility] valsartan DA Active 2019-06-08 00:00:00 [facility] exenatide DA Active 2019-06-08 00:00:00 [facility] Morphine Propensity to adverse reactions to drug Active Other (See Comments) 2019-05-09 00:00:00 Swelling of skin [facility] Exenatide Propensity to adverse reactions to drug Active Rash 2019-01-19 00:00:00 Dannie hutson Hydralazine-Hydrochlorothiazid Propensity to adverse reactions to d rug Active Other (See Comments) 2019-01-19 00:00:00 Swelling of s kin Dannie Knight Valsartan Propensity to adverse reactions to drug Active Other (See Comments) 2019-01-19 00:00:00 Swelling of skin [facility] Codeine Propensity to adverse reactions to drug Active Rash 2018-10-10 00:00:00 Dannie Mcclellan t Penicillins Propensity to adverse reactions to drug Active Other (See Comments) 2018-10-10 00:00:00 Swelling of skin [place] [facility] Penicillins DA Active U 2009-04-23 00:00:00 [facility] codeine DA Active U 2009-04-23 00:00:00 [facility] Social History Social Habit Start Date Stop Date Quantity Comments Source History SDOH Alcohol Std Drinks Dannie Knight History SDOH Alcohol Binge Dannie Knight Sex Assigned At [employer] [facility] Alcohol intake 2019-07-08 00:00:00 2019-07-08 00:00:00 Current non-drinker of alcohol (finding) Dannie Knight History SDOH Alcohol Frequency 2018-10-10 00:00:00 2018-10-10 00:00:0 0 1 Dannie Knight Smoking Status Start Date Stop Date Source Never smoker Dannie Mcclellan t Medications Ordered Medication Name Filled Medication Name [...] mg by mouth daily before breakfast. Avelino ton [facility] pravastatin (PRAVACHOL) 40 MG tablet 2019-07-10 12:48:30 Ye s 40mg QD Take 40 mg by mouth daily. Dannie Meth odiftikhar metFORMIN (GLUCOPHAGE) 1,000 mg tablet 2019-07-10 12:48:30 [...] by mouth daily. Dannie Knight insulin glargine,hum.rec.anlog (TOUJEO SOLOSTAR U-300 INSULI N SUBQ) 2019-07-10 12:48:30 Yes [...] Name Observation Time Observation Value Comments Source Weight 2020-06-18 03:53:00 328 [lb_av] [facility] BMI (Body Mass Index) 2020-06-18 03:53:00 62.0 kg/m2 [facility] Systolic blood pressure 2019-07-10 10:43:32 131 mm[Hg] Dannie Knight Diastolic blood pressure 2019-07-10 10:43:32 63 mm[Hg] [facility]ey [facility] Heart rate 2019-07-10 10:43:32 88 /min Dannie Manningist Body temperature 2019-07-10 10:43:32 36.89 Venessa Avel[facility] Respiratory rate 2019-07-10 10:43:32 20 /min [place] [facility] Oxygen saturation in Arterial blood by Pulse oximetry 07-10 10:43:32 95 /min Dannie Knight Body height 2019-07-08 16:49:00 160 cm Dannie Knight Body weight 2019-07-08 16:49:00 122.471 kg Dannie Knight BMI 2019-07-08 16:49:00 47.83 kg/m2 [facility] Procedures Procedure Date / Time Performed Performing Clinician Sour e Computed tomography of abdomen and pelvis with contrast 00:00:[address] [facility] POC GLUCOSE 2019-07-10 11:32:00 Matheus Guevara [facility] HC COMPLETE BLD COUNT W/AUTO DIFF 2019-07-10 06:37:00 Juwan Godinez [facility] BASIC METABOLIC PANEL 2019-07-10 06:37:00 Aurora Godinez ESTIMATED GFR 2019-07-10 06:37:00 Aurora Godinez on [facility] SMEAR REVIEW 2019-07-10 06:37:00 Aurora Godinez [facility] POC GLUCOSE 2019-07-10 06:00:00 Matheus Guevara [facility] POC GLUCOSE 2019-07-09 19:52:00 Matheus Guevara [facility] POC GLUCOSE 2019-07-09 16:14:00 Matheus Guevara [facility] POC GLUCOSE 2019-07-09 10:38:00 Matheus Guevara [facility] GRAM STAIN 2019-07-09 06:02:00 Aurora Godinez on [facility] URINE CULTURE 2019-07-09 06:02:00 Aurora Godinez on [facility] CBC WITH PLATELET AND DIFFERENTIAL 2019-07-09 05:57:00 Sherie Mata COMPREHENSIVE METABOLIC PANEL 2019-07-09 05:57:00 Jackie Mata ESTIMATED GFR 2019-07-09 05:57:00 Sherie Mata Meth odiftikhar SMEAR REVIEW 2019-07-09 05:57:00 Sherie Mata URINALYSIS SCREEN AND MICROSCOPY, WITH REFLEX TO CULTURE 201 07-05-13 05:28:00 Aurora Godinez POC GLUCOSE 2019-07-09 05:06:00 Matheus Guevara ECG 12-LEAD 2019-07-09 04:39:46 Sherie Mata odiftikhar TROPONIN 2019-07-09 01:00:00 Sherie Mata ECG 12-LEAD 2019-07-09 00:12:12 Sherie Mata POC GLUCOSE 2019-07-08 21:48:00 Matheus Guevara LIPID PANEL 2019-07-08 21:00:00 Aurora Godinez on [facility] TROPONIN 2019-07-08 21:00:00 Sherie Mata US DUPLEX [...] Mata TROPONIN 2019-07-08 17:05:00 Aurora Godinez on [facility] B NATRIURETIC PEPTIDE 2019-07-08 17:05:00 Sherie Mata PHENYTOIN LEVEL 2019-07-08 17:05:00 Adolfo Sherie Buckner odiftikhar ESTIMATED GFR 2019-07-08 17:05:00 Sherie Mata odiftikhar D-DIMER 2019-07-08 17:05:00 Sherie Mata ECG ED PRELIMINARY INTERPRETATION 2019-07-08 17:00:00 Christopher Mata Plan of Care Planned Activity Planned Date Details Comments Source Future Scheduled Test 2020-07-27 00:00:00 INFLUENZA VACCINE [code = INFLUENZA VACCINE] [facility] Future Scheduled Test 2015 00:00:00 BREAST CANCER SCRE ENING [code = BREAST CANCER SCREENING] [facility] Future Scheduled Test 2015 00:00:00 COLONOSCOPY SCREEN ING [code = COLONOSCOPY SCREENING] [facility] Future Scheduled Test 2015 00:00:00 SHINGLES VACCINES (#1) [code = SHINGLES VACCINES (#1)] [facility] Scheduled Test 1986 00:00:00 Screening for lisa gnant neoplasm of cervix (procedure) [code = 741135838] Dannie Mcclellan Instructions Kidney Stones [facility] Encounters Start Date/Time End Date/Time Encounter Type Admission Type Attendi [facility] Care Department Encounter ID Source 2020-06-18 04:24:00 2020-06-18 08:39:00 Departed Emergency Room 1 JOANN ELENA [facility] [id number] I [facility] Results Test Description Test Time Test Comments Results Result Comments Source Urine color determination 2020-06-18 07:12:00 Test Item Urine Color (test code = 5778-6) YELLOW YELLOW [facility] [id number] 07:12:00* Test Item Value Reference Range Interpretation Comments Urine Clarity (test code = 95324-5) [facility] Test strip 2020-06-18 07:12:00* Test Item Value Reference Range Interpretation Comments Urine Specific Jackson (test code = 5811-5) 1.025 1.010-1.[address] [facility] pH measurement by automated test [id number] 07:12:00* Test Item Value Reference Range Interpretation Comments Urine pH (test code = 49995-9) 5 5-[address] [facility] leukocyte esterase detection by [id number] 07:12:00* Test Item Value Reference Range Interpretation Comments Urine Leukocyte Esterase (test code = 5799-2) TRACE NEGATIVE [facility] nitrite [id number] 07:12:00* Test Item Value Reference Range Interpretation Comments Urine Nitrite (test code = 87862-2) NEGATIVE NEGATIVE [facility] protein measurement by test strip (mass/volume)2020-06-18 07:12:00* Test Item Value Reference Range Interpretation Comments Urine Protein (test code = 5804-0) 2+ NEGATIVE [facility] glucose [id number] 07:12:00* Test Item Value Reference Range Interpretation Comments Urine Glucose (UA) (test code = 2349-9) 2+ NEGATIVE [facility] ketones detection by automated test [id number] 07:12:00* Test Item Value Reference Range Interpretation Comments Urine Ketones (test code = 50712-8) TRACE NEGATIVE [facility] opiates screening [id number] 07:12:00* Test Item Value Reference Range Interpretation Comments Urine Opiates Screen (test code = 35594-5) NEGATIVE NEGATIVE ALL TESTS PERFORMED MANUALLY ON Far[place] TOX/SEE TESTCH[facility] St[facility] HospitalBarbiturates screen, [id number] 07:12:00* Test Item Value Reference Range Interpretation Comments Urine Barbiturates Screen (test code = 437205495) NEGATIVE NEGA TIVE [facility] phencyclidine detection by screening [id number] 07:12:00* Test Item Value Reference Range Interpretation Comments Urine Phencyclidine Screen (test code = 24498-8) NEGATIVE NEGAT INES [facility] amphetamines detection by screen method > 1000 [id number] 07:12:00* Test Item Value Reference Range Interpretation Comments Urine Amphetamines Screen (test code = 69028-9) NEGATIVE NEGATI VE [facility] HospitalFluoroscopic procedure less than one hour [id number] 07:12:00* Test Item Value Reference Range Interpretation Comments Urine Methamphetamines Screen (test code = Urine Metha mphetamines Screen) NEGATIVE NEGATIVE [facility]rine benzodiazepines detection by screening [id number] 07:12:00* Test Item Value Reference Range Interpretation Comments Urine Benzodiazepines Screen (test code = 93003-5) NEGATIVE NEG ATIVE [facility] cocaine measurement (mass/volume) 2020-06-18 07:12:00* Test Item Value Reference Range Interpretation Comments Urine Cocaine Screen (test code = 3398-5) NEGATIVE NEGATIVE [facility] Hospital[facility]rine cannabinoids detection by screening [id number] 07:12:00* Test Item Value Reference Range Interpretation Comments Urine Cannabinoids Screen (test code = 26750-7) NEGATIVE NEGATI VE THESE RESULTS ARE FOR MEDICAL TREATMENT ONLYTHIS REPORT CONTAINS UNCONFIR MED SCREENING RESULTS*POSITIVE RESULTS WILL BE CONFIRMED BY REFERENCE LAB UPON R EQUEST CUT-OFFDRUG CLASS CONCENTRATION ng/mLAmphetamines 1000Methamphetamines 1000Cocaine 300Opiate 300Phencyc lidine 25Cannabinoid 50Barbiturates 300Benzodiazepine 300Methadone 300[facility] HospitalUrine methadone [id number] 07:12:00* Test Item Value Reference Range Interpretation Comments Urine Methadone Screen (test code = 04784-0) NEGATIVE NEGATIVE THESE RESULTS ARE FOR MEDICAL TREATMENT ONLYTHIS REPORT CONTAINS UNCONFIR MED SCREENING RESULTS*POSITIVE RESULTS WILL BE CONFIRMED BY REFERENCE LAB UPON R EQUEST CUT-OFFDRUG CLASS CONCENTRATION ng/mLAmphetamines 1000Methamphetamines 1000Cocaine Metabolite 300Opiate 300Phencyc lidine 25Cannabinoid 50Barbiturates 300Benzodiazepine 300M[address]adone [address] HospitalUrine urobilinogen measurement by test strip (mass/volume)2020-06-18 07:12:00* Test Item Value Reference Range Interpretation Comments Urine Urobilinogen (test code = 13909-3) 1 0.2-[address] [facility] total bilirubin measurement (mass/volume)2020-06-18 07:12:00* Test Item Value Reference Range Interpretation Comments Urine Bilirubin (test code = 1978-6) SMALL NEGATIVE [facility] HospitalUrine erythrocytes [id number] 07:12:00* Test Item Value Reference Range Interpretation Comments Urine Blood (test code = 24748-8) MODERATE NEGATIVE [facility] HospitalAutomated urine sediment leukocyte count by microscopy (number/high power field)2020-06-18 07:12:00* Test Item Value Reference Range Interpretation Comments Urine WBC (test code = 5821-4) 21-50 0-[address] [facility] HospitalErythrocytes detection in urine sediment by light [id number] 07:12:00* Test Item Value Reference Range Interpretation Comments Urine RBC (test code = 39691-8) -20 0-[address] [facility] HospitalBacteria detection in urine sediment by light amcqpxuelv9529-11-79 07:12:00* Test Item Value Reference Range Interpretation Comments Urine Bacteria (test code = 81754-9) RARE NONE [facility] HospitalEpithelial cells detection in urine sediment by light [id number] 07:12:00* Test Item Value Reference Range Interpretation Comments Urine Epithelial Cells (test code = 22308-2) FEW NONE [facility] HospitalCT ABDOMEN/PELVIS [id number] 06:53:00 [facility] [address] [address] Patient Name: TIFFANIE HALL MR #: [id number] : 1965 Age/Sex: 55/F Req #: [id number] Adm Physician: Ordered by: JOANN ELENA DO Report #: [id number] Location: ER Room/Bed: Procedure: [id number] CT/CT ABDO MEN/PELVIS W Exam Date: 06/18/20 Exam Time: 0635 REPORT STATUS: Signed EXAM: CT Abdo men and Pelvis WITH contrast INDICATION: Right upper quadrant pain, Left up per quadrant pain per notes COMPARISON: None. TECHNIQUE: Abdomen and pelvis were scanned utilizing a multidetector helical scanner from the lung base to t he pubic symphysis after administration of IV contrast. Coronal and sagittal r eformations were obtained. Routine protocol was performed. Scan was performed when during portal venous phase. IV CONTRAST: 100 mL of Isovue 370 ORAL CONTRAST: None COMPLICATIONS: None RADIATION DOS E: Total DLP: 1267 mGy*cm Estimated effective dose: (DLP x 0.015 x size factor) mSv CTDIvol has been reviewed. It is below the limits set by the Radiation Protocol Committee (RPC). Dose modulation, iterative re construction, and/or weight based adjustment of the mA/kV was utilized to redu ce the radiation dose to as low as reasonably achievable. FINDINGS: LINES and TUBES: None. LOWER THORAX: Subtle atelectasis in the lower lung s. HEPATOBILIARY: Enlarged hypodense liver. No focal hepatic lesions. No b iliary ductal dilation. GALLBLADDER: No radio-opaque stones or sludge. No wall thickening. SPLEEN: No splenomegaly. PANCREAS: No focal reymundo s or ductal dilatation. ADRENALS: No adrenal nodules KIDNEYS/URE TERS: A 5 mm calculus in the mid left ureter with mild upstream left hydrouret eronephrosis. Asymmetric left renal hypoenhancement. Mild left perinephric fat stranding. No cystic or solid mass lesions. GI TRACT: No abnormal distention, wall thickening, or evidence of bowel obstruction. Appendix is normal. PELVIC ORGANS/BLADDER: Hysterectomy. No adnexal masses. Urinary bladder unremarkable. LYMPH NODES: No lymphadenopathy. VESSELS: Left ovarian vein phleboliths. Arterial calcifications. PERITONEUM / RET ROPERITONEUM: No free air or fluid. BONES: Degenerative changes. S OFT TISSUES: Unremarkable. IMPRESSION: A 5 mm calculus in the mid left ureter with mild upstream left hydroureteronephrosis. Superimpos ed infection is possible. Hepatomegaly with hepatic steatosis. Signed by: Angel Arora DO on 06/18/2020 6:58 AM Dictated By: ANGEL ARORA DO 7 Transcribed By: JÚNIOR on 06/18/20657 COPY TO: JOANN ELENA DO Blood leukocytes automated count (number/volume)2020-06-18 03:45:00* Test Item Value Reference Range Interpretation Comments White Blood Count (test code = 6690-2) 10.95 4.8-10.[address]Blood erythrocytes automated count (number/volume)2020-06-18 03:45:00* Test Item Value Reference Range Interpretation Comments Red Blood Count (test code = 789-8) 4.85 3.6-5.[address] [facility] HospitalBlood hemoglobin measurement (moles/volume)2020-06-18 03:45:00* Test Item Value Reference Range Interpretation Comments Hemoglobin (test code = 39990-1) 13.1 12.0-16.[address] HospitalAutomated blood hematocrit (volume fraction)2020-06-18 03:45:00* Test Item Value Reference Range Interpretation Comments Hematocrit (test code = 4544-3) 42.7 34.2-44.[address] [facility] HospitalAutomated erythrocyte mean corpuscular [id number] 03:45:00* Test Item Value Reference Range Interpretation Comments Mean Corpuscular Volume (test code = 787-2) 88.0 81-[address] [facility] HospitalAutomated erythrocyte mean corpuscular hemoglobin (mass per erythrocyte)2020-06-18 03:45:00* Test Item Value Reference Range Interpretation Comments Mean Corpuscular Hemoglobin (test code = 785-6) 27.0 28-[address] [facility] HospitalAutomated erythrocyte mean corpuscular hemoglobin concentration measurement (mass/volume)2020-06-18 03:45:00* Test Item Value Reference Range Interpretation Comments Mean Corpuscular Hemoglobin Concent (test code = 786-4) 30.7 31-[address] [facility] HospitalRDW DzaHp-[id number] 03:45:00* Test Item Value Reference Range Interpretation Comments Red Cell Distribution Width (test code = 21447-2) 14.2 11.7 -14.[address] HospitalAutomated blood platelet count (count/volume)2020-06-18 03:45:00* Test Item Value Reference Range Interpretation Comments Platelet Count (test code = 777-3) 237 140-[address] [facility] HospitalAutomated blood segmented neutrophil count as percentage of total pozsfsdutx3416-16-48 03:45:00* Test Item Value Reference Range Interpretation Comments Neutrophils (%) (Auto) (test code = 31731-8) 78.2 38.7-80.[address] HospitalAutomated blood lymphocyte count as percentage ot total fnoqdqsqmg0317-52-18 03:45:00* Test Item Value Reference Range Interpretation Comments Lymphocytes (%) (Auto) (test code = 736-9) 14.3 18.0-39.[address] [facility] HospitalAutomated blood monocyte count as percentage of total jvaxajwlkc1064-10-20 03:45:00* Test Item Value Reference Range Interpretation Comments Monocytes (%) (Auto) (test code = 5905-5) 5.8 4.4-11.[address] [facility] HospitalAutomated blood eosinophil count as percentage of total osauvsamtc5348-47-45 03:45:00* Test Item Value Reference Range Interpretation Comments Eosinophils (%) (Auto) (test code = 713-8) 0.6 0.0-6.[address] HospitalAutomated blood basophil count as percentage of total ovqfkdxvtu0324-43-86 03:45:00* Test Item Value Reference Range Interpretation Comments Basophils (%) (Auto) (test code = 706-2) 0.4 0.0-1.[address] HospitalFluoroscopic procedure less than one hour vfirmimz0343-42-84 03:45:00* Test Item Value Reference Range Interpretation Comments IM GRANULOCYTES % (test code = IM GRANULOCYTES %) 0.7 0.0- 1.[address] [facility] HospitalAutomated blood neutrophil count 2020-06-18 03:45:00* Test Item Value Reference Range Interpretation Comments Neutrophils # (Auto) (test code = 751-8) 8.6 2.1-6.[address] [facility] HospitalBlood lymphocytes count (number/volume) 2020-06-18 03:45:00* Test Item Value Reference Range Interpretation Comments Lymphocytes # (Auto) (test code = 56722-9) 1.6 1.0-3.[address] [facility] HospitalBlood monocytes automated count (number/volume)2020-06-18 03:45:00* Test Item Value Reference Range Interpretation Comments Monocytes # (Auto) (test code = 742-7) 0.6 0.2-0.[address] [facility] HospitalAutomated blood eosinophil count 2020-06-18 03:45:00* Test Item Value Reference Range Interpretation Comments Eosinophils # (Auto) (test code = 711-2) 0.1 0.0-0.[address] [facility] HospitalAutomated blood basophil count (count/volume)2020-06-18 03:45:00* Test Item Value Reference Range Interpretation Comments Basophils # (Auto) (test code = 704-7) 0.0 0.0-0.[address] [facility] HospitalFluoroscopic procedure less than one hour hsxylszk6246-02-60 03:45:00* Test Item Value Reference Range Interpretation Comments Absolute Immature Granulocyte (auto (austin t code = Absolute Immature Granulocyte (auto) 0.08 0-0.1 [facility] plasma sodium measurement (moles/volume)2020-06-18 03:45:00* Test Item Value Reference Range Interpretation Comments Sodium Level (test code = 2951-2) 138 136-145 [facility]ere[facility] or plasma potassium measurement (moles/volume)2020-06-18 03:45:00* Test Item Value Reference Range Interpretation Comments Potassium Level (test code = 2823-3) 4.1 3.5-5.1 [facility] or plasma chloride measurement (moles/volume)2020-06-18 03:45:00* Test Item Value Reference Range Interpretation Comments Chloride Level (test code = 2075-0) 96 98-107 [facility]ererum or plasma carbon dioxide, total measurement (moles/volume)2020-06-18 03:45:00* Test Item Value Reference Range Interpretation Comments Carbon Dioxide Level (test code = 2028-9) 27 22-29 [facility]ererum or plasma anion [id number] 03:45:00* Test Item Value Reference Range Interpretation Comments Anion Gap (test code = 23522-7) 19.1 8-16 [facility]ere[facility] or plasma urea nitrogen measurement (mass/volume)2020-06-18 03:45:00* Test Item Value Reference Range Interpretation Comments Blood Urea Nitrogen (test code = 3094-0) 10 7-26 [facility]ererum or plasma creatinine measurement (mass/volume)2020-06-18 03:45:00* Test Item Value Reference Range Interpretation Comments Creatinine (test code = 2160-0) 0.76 0.57-1.11 [facility]ererum or plasma urea nitrogen/creatinine mass gelqt2315-02-77 03:45:00* Test Item Value Reference Range Interpretation Comments BUN/Creatinine Ratio (test code = 3097-3) 13 6-[address] [facility] HospitalEstimated glomerular filtration rate (GFR) mpsxvbupnmnpo0154-65-30 03:45:00* Test Item Value Reference Range Interpretation Comments Estimat Glomerular Filtration Rate (test code = 290993147) > 60 >60 Ranges were taken from the National Kidney Disease Education Program and the [facility] Kid[facility] Foundation literature.Reference ranges:60 or greater: Ffxyfy97-48 ( for 3 consecutive months): Chronic kidney disease 15 or less: Kidney failureCH[facility] HospitalGlucose bknbuzwmcjp0170-13-08 03:45:00* Test Item Value Reference Range Interpretation Comments Glucose Level (test code = XVF8256) 267 74-118 [facility]ere[facility] or plasma calcium measurement (mass/volume)2020-06-18 03:45:00* Test Item Value Reference Range Interpretation Comments Calcium Level (test code = 34291-6) 9.6 8.4-10.2 [facility] Centererum or plasma total bilirubin measurement (mass/volume)2020-06-18 03:45:00* Test Item Value Reference Range Interpretation Comments Total Bilirubin (test code = 1975-2) 0.7 0.2-1.[address] HospitalFluoroscopic procedure less than one hour kwrksnzg4455-76-22 03:45:00* Test Item Value Reference Range Interpretation Comments Aspartate Amino Transf (AST/SGOT) (test code = Aspartate Amino Transf (AST/SGOT)) 29 5-34 [facility] Centererum or plasma alanine aminotransferase measurement (enzymatic activity/volume)2020-06-18 03:45:00* Test Item Value Reference Range Interpretation Comments Alanine Aminotransferase (ALT/SGPT) (test code = 1742-6) 41 0-55 [facility] (mass/volume)2020-06-18 03:45:00* Test Item Value Reference Range Interpretation Comments Total Protein (test code = 2885-2) 8.1 6.5-8.1 [facility] albumin measurement (mass/volume)2020-06-18 03:45:00* Test Item Value Reference Range Interpretation Comments Albumin (test code = 1751-7) 3.3 3.5-5.[address] [facility] (mass/volume) 2020-06-18 03:45:00* Test Item Value Reference Range Interpretation Comments Globulin (test code = 91599-6) 4.8 2.3-3.5 [facility] albumin/globulin mass rrbqc7215-62-81 03:45:00* Test Item Value Reference Range Interpretation Comments Albumin/Globulin Ratio (test code = 1759-0) 0.7 0.8-2.0 [facility] alkaline phosphatase measurement (enzymatic activity/volume)2020-06-18 03:45:00* Test Item Value Reference Range Interpretation Comments Alkaline Phosphatase (test code = 6768-6) 105 40-150 [facility] creatine kinase measurement (enzymatic activity/volume)2020-06-18 03:45:00* Test Item Value Reference Range Interpretation Comments Creatine Kinase (test code = 2157-6) 442 29-168 [facility] creatine kinase MB measurement (mass/volume)2020-06-18 03:45:00* Test Item Value Reference Range Interpretation Comments Creatine Kinase MB (test code = 94669-2) 0.70 0-5.[address] HospitalTroponin I measurement by highly sensitive enzyme fsyhcazvwfd0068-99-32 03:45:00* Test Item Value Reference Range Interpretation Comments Troponin I (test code = 36750-2) < 0.001 0-0.300 [facility] lipase measurement (enzymatic activity/volume)2020-06-18 03:45:00* Test Item Value Reference Range Interpretation Comments Lipase (test code = 3040-3) 10 8-[address] [facility] HospitalGLUBED2020-01-27 08:30:00* Test Item Value Reference Range Interpretation Comments GLUBED (test code = GLUBED) 352 MG/DL 70-110 H Performed by certified sliver machine operator at [facility] RCFORT4978-89-09 21:15:00* Test Item Value Reference Range Interpretation Comments GLUBED (test code = GLUBED) 334 MG/DL 70-110 H Performed by certified sliver machine operator at [facility] ENAINL3783-39-22 20:18:00* Test Item Value Reference Range Interpretation Comments GLUBED (test code = GLUBED) 327 MG/DL 70-110 H Performed by certified sliver machine operator at [facility] RAARQA8393-61-09 12:48:00* Test Item Value Reference Range Interpretation Comments GLUBED (test code = GLUBED) 318 MG/DL 70-110 H Performed by certified sliver machine operator at [facility] CBC W/AUTO [id number] 08:25:00* Test Item Value Reference Range Interpretation [...] (test code = MDIFF) NO BASIC METABOLIC [id number] 08:24:00* Test Item Value Reference Range Interpretation [...] code = CA) 9.1 mg/dL 8.0-10.5 N [id number] 07:02:00* Test Item Value Reference Range Interpretation Comments GLUBED (test code = GLUBED) 293 MG/DL 70-110 H Performed by certified sliver machine operator at [facility] FYXVKX2010-70-25 21:52:00* Test Item Value Reference Range Interpretation Comments GLUBED (test code = GLUBED) 341 MG/DL 70-110 H Performed by certified sliver machine operator at [facility] BAXDIZ0531-43-13 11:08:00* Test Item Value Reference Range Interpretation Comments GLUBED (test code = GLUBED) 215 MG/DL 70-110 H Performed by certified sliver machine operator at [facility] CBC W/AUTO [id number] 09:02:00* Test Item Value Reference Range Interpretation [...] (test code = MDIFF) NO BASIC METABOLIC [id number] 08:08:00* Test Item Value Reference Range Interpretation [...] code = CA) 9.0 mg/dL 8.0-10.5 N [id number] 23:20:00* Test Item Value Reference Range Interpretation Comments GLUBED (test code = GLUBED) 235 MG/DL 70-110 H Performed by certified sliver machine operator at [facility] ULQWMD5686-07-71 17:12:00* Test Item Value Reference Range Interpretation Comments GLUBED (test code = GLUBED) 289 MG/DL 70-110 H Performed by certified sliver machine operator at [facility] EJJMJN1219-27-59 16:45:00* Test Item Value Reference Range Interpretation Comments GLUBED (test code = GLUBED) 237 MG/DL 70-110 H Performed by certified sliver machine operator at [facility] [id number] 08:58:00* Test Item Value Reference Range Interpretation Comments GLUBED (test code = GLUBED) 208 MG/DL 70-110 H Performed by certified sliver machine operator at [facility] BASIC METABOLIC [id number] 08:22:00* Test Item Value Reference Range Interpretation [...] CA) 8.8 mg/dL 8.0-10.5 N CBC W/AUTO [id number] 07:26:00* Test Item Value Reference Range Interpretation [...] DIFF REQUIRED (test code = MDIFF) NO [id number] 21:46:00* Test Item Value Reference Range Interpretation Comments GLUBED (test code = GLUBED) 368 MG/DL 70-110 H Performed by certified sliver machine operator at [facility] [id number] 21:08:00* Test Item Value Reference Range Interpretation Comments GLUBED (test code = GLUBED) 111 MG/DL 70-110 H Performed by certified sliver machine operator at [facility] MHSRGQ4040-12-67 18:37:00* Test Item Value Reference Range Interpretation Comments GLUBED (test code = GLUBED) 264 MG/DL 70-110 H Performed by certified sliver machine operator at [facility] [id number] 08:12:00* Test Item Value Reference Range Interpretation Comments GLUBED (test code = GLUBED) 255 MG/DL 70-110 H Performed by certified sliver machine operator at [facility] CBC W/AUTO [id number] 08:11:00* Test Item Value Reference Range Interpretation [...] be done morning of Heart CathBASIC METABOLIC SZSHU8095-65-31 08:09:00* Test Item Value Reference Range Interpretation [...] COMMENTS: To be done morning of Heart SmgfBMWOAW8266-68-17 07:34:00* Test Item Value Reference Range Interpretation Comments GLUBED (test code = GLUBED) 201 MG/DL 70-110 H Performed by certified sliver machine operator at [facility] [id number] 17:59:00* Test Item Value Reference Range Interpretation Comments GLUBED (test code = GLUBED) 280 MG/DL 70-110 H Performed by certified sliver machine operator at [facility] HGBA1C%2019-11-15 09:33:00* Test Item Value Reference Range Interpretation Comments HGBA1C% (test code = HGBA1C%) 10.1 %A1C 4.8-6.0 H BVBPZL9622-00-60 08:32:00* Test Item Value Reference Range Interpretation Comments GLUBED (test code = GLUBED) 263 MG/DL 70-110 H Performed by certified sliver machine operator at [facility] B-TYPE NATRIURETIC [id number] 08:32:00* Test Item Value Reference Range Interpretation Comments B-TYPE NATRIURETIC PEPTIDE (test code = BNP) 18.9 PG/ML 0-100 N CBC W/AUTO [id number] 07:32:00* Test Item Value Reference Range Interpretation [...] (test code = MDIFF) NO BASIC METABOLIC [id number] 07:28:00* Test Item Value Reference Range Interpretation [...] = LDL) 156 mg/dL 0-100 H <100 DUIBFDP748-019 NEAR OPTIMAL/ABOVE NSICDFT637-019 VQFGUZIVMW379-232 HIGH>XL=316 VERY HIGH*Guidelines provided by the National Cholesterol EducationProgram Adult Treatment Panel III XUKMNXPLY6656-73-88 07:28:00* Test Item Value Reference Range Interpretation Comments MAGNESIUM (test code = MAG) 2.20 mg/dL 1.8-2.4 N [id number] 21:27:00* Test Item Value Reference Range Interpretation Comments GLUBED (test code = GLUBED) 266 MG/DL 70-110 H Performed by certified sliver machine operator at [facility] GNWVGZ6675-27-51 19:19:00* Test Item Value Reference Range Interpretation Comments GLUBED (test code = GLUBED) 215 MG/DL 70-110 H Performed by certified sliver machine operator at [facility] COMPREHENSIVE METABOLIC [id number] 16:17:00* Test Item Value Reference Range Interpretation [...] ALKP) 122 IUnit/L 20-125 N CBC W/AUTO [id number] 16:03:00* Test Item Value Reference Range Interpretation [...] DIFF REQUIRED (test code = MDIFF) NO [id number] 15:54:00* Test Item Value Reference Range Interpretation Comments GLUBED (test code = GLUBED) 208 MG/DL 70-110 H Performed by certified sliver machine operator at [facility] HGBA1C%2019-11-14 13:22:00* Test Item Value Reference Range Interpretation Comments HGBA1C% (test code = HGBA1C%) 9.7 %A1C 4.8-6.0 H [id number] 13:20:00* Test Item Value Reference Range Interpretation Comments MAGNESIUM (test code = MAG) 2.20 mg/dL 1.8-2.4 N TSH REFLEX TO [id number] 13:20:00* Test Item Value Reference Range Interpretation Comments TSH REFLEX TO FT4 (test code = TSHREFLEX) 0.97 IU/mL 0.42-5.47 N [id number] 09:56:00* Test Item Value Reference Range Interpretation Comments GLUBED (test code = GLUBED) 346 MG/DL 70-110 H Performed by certified sliver machine operator at [facility] BNLOUEIL-N9265-31-19 05:46:00* Test Item Value Reference Range Interpretation [...] 3 troponins total (including troponin done in ED)NHORKODQ-M7819-18-19 01:59:00* Test Item Value Reference Range Interpretation [...] 3 troponins total (including troponin done in ED)[id number] 01:46:00* Test Item Value Reference Range Interpretation Comments GLUBED (test code = GLUBED) 416 MG/DL 70-110 H Performed by certified sliver machine operator at [facility] - CT ABD PELVIS W/NMWL6464-02-28 23:12:00 Name: TIFFANIE HALL [facility] : 1965 Age/S: 54 / F [address] [place] [address] Unit #: [id number] Loc: [place] [address] Phys: Rick Rae MD Acct: [id number] Dis Date: Status: REG ER PHONE #: [phone] Exam Date: 11/13/20192223 FAX #: [phone] Reason: DYSPNEA INVESTIGATE FOR PNEUMONIA EXAMS: CPT CODE: [id number] CT ABD PELVIS W/CONT 08824 CT abdomen and pelvis with contrast dated [...] 1 Signed Report (CONTINUED) Name: TIFFANIE HALL : 1965 Age/S: 54 / F [address] [facility] Unit #: [id number] Loc: [place] [address] Phys: Rick aRe MD Acct: [id number] Dis Date: Status: REG ER PHONE #: [phone] Exam Date: 11/13/20192223 FAX #: [phone] Reason: DYSPNEA INVESTIGATE FOR P NEUMONIA EXAMS: CPT CODE: [id number] CT ABD PELVIS W/CONT 00219 <Continued> are noted. The bladder has an unremarkable appearance. LOWER CHEST: Mild atelectasis is identified in the lung bases. ADDITIONAL FINDINGS: None. IMPRESSION: 1. No acute CT abnormalities of the abdomen or pelvis are detected. 2. Left nephrolithiasis. 3. Hepatomegaly with fatty infiltration. SL: 131 at 2312 Reported and signed by: Javier Lundberg M.D. CC: Rick Rae MD; Nav Mayberry MD Technologist:Jamel Beaver, RT(R) CTDI: DLP: Trnscb Date/Time: 11/13/2019 (2311) t.SARAR.DMM Orig Print D/T: S: 11/13/2019 (9765) PAGE 2 Signed Report - CT CHEST W/QMAHRNEO2653-00-73 23:02:00 Name: TIFFANIE HALL : 1965 Age/S: 54 / F [address] [place] [address] Unit #: [id number] Loc: [place] [address] Phys: Rick Rae MD Acct: [id number] Dis Date: Status: REG ER PHONE #: [phone] Exam Date: 11/13/20192223 FAX #: [phone] Reason: DYSPNEA INVESTIGATE FOR PNEUMONIA EXAMS: CPT CODE: [id number] CT CHEST W/CONTRAST [address]22 CT CHEST WITH INTRAVENOUS CONTRAST INDICATION: DYSPNEA [...] pulmonary atelectasis. Pl ease refer to the cyber security systems engineer CT abdomen and pelvis report for discussion of intra-abdominal anatomy. PAGE 1 Signed Report (CONTINUED) Name: TIFFANIE HALL [facility] : 1965 Age/S: 54 / F [address] [facility] Unit #: [id number] Loc: [place] [address] Phys: Rick Rae MD Acct: [id number] Dis Date: Status: REG ER PHONE #: [phone] Exam Date: 11/13/2019 2225 FAX #: [phone] Reason: DYSPNEA INVESTIGATE FOR PNEUMONIA EXAMS: CPT CODE: [id number] CT CHEST W/CONTRAST 91160 < Continued> IMPRESSION: 1. There is a [...] Angel Torres D.O. CC: Rick Rae MD; Nav Mayberry MD Technologist:Jamel Beaver, RT(R) CTDI: DLP: Trnscb Date/Time: 11/13/2019 (2301) t.JB33 Orig Print D/T: S: 11/13/2019 (1056) PAGE 2 Signed Report PROTHROMBIN [id number] 22:37:00* Test Item Value Reference Range Interpretation [...] Infarction (to prevent recurrent infarct). THROMBOPLASTIN TIME [id number] 22:37:00* Test Item Value Reference Range Interpretation Comments THROMBOPLASTIN TIME PARTIAL (test code = PTT) 30.6 Seconds 25.0-39. 5 N Therapeutic Range: 50.4 - 88.3 Seconds Effective 02/09/2019 B-TYPE NATRIURETIC [id number] 22:36:00* Test Item Value Reference Range Interpretation Comments B-TYPE NATRIURETIC PEPTIDE (test code = BNP) 33.2 PG/ML 0-100 N BASIC METABOLIC [id number] 22:33:00* Test Item Value Reference Range Interpretation [...] CA) 8.4 mg/dL 8.0-10.5 N HEPATIC FUNCTION [id number] 22:33:00* Test Item Value Reference Range Interpretation [...] code = ALKP) 142 IUnit/L 20-125 H [id number] 22:33:00* Test Item Value Reference Range Interpretation Comments LIPASE (test code = LIP) 107 IUnit/L 73-393 N HCG SERUM [id number] 22:33:00* Test Item Value Reference Range Interpretation Comments HCG SERUM QUAL (test code = HCGQL) SERUM NEGATIVE NEGATIVE [id number] 22:33:00* Test Item Value Reference Range Interpretation Comments TROPONIN-I (test code = TROPI) < 0.015 ng/mL 0.000-0.045 N Negative: <= 0.045 Positive: >= 0.046 Correlation with serial results, other cardiac markers andclinical findings is necessary to determine the clinicalsignificance of this result. Results using different methodologies should not be comparedto one another as quantitative results may vary by method. BASIC METABOLIC [id number] 22:30:00* Test Item Value Reference Range Interpretation [...] code = CA) mg/dL 8.0-10.5 HEPATIC FUNCTION [id number] 22:30:00* Test Item Value Reference Range Interpretation Comments TOTAL PROTEIN (test code = PROT) g/dL 6.4-8.2 ALBUMIN (test code = ALB) g/dL 3.4-5.0 BILIRUBIN TOTAL (test code = BILT) MG/DL <1.5 BILIRUBIN DIRECT (test code = BILD) MG/DL 0.0-0.30 SGOT/AST (test code = AST) IUnit/L 15-37 SGPT/ALT (test code = ALT) IUnit/L 15-65 ALKALINE PHOSPHATASE TOTAL (test code = ALKP) IUnit/L 20-125 [id number] 22:30:00* Test Item Value Reference Range Interpretation Comments LIPASE (test code = LIP) IUnit/L 73-393 HCG SERUM [id number] 22:30:00* Test Item Value Reference Range Interpretation Comments HCG SERUM QUAL (test code = HCGQL) SERUM NEGATIVE NEGATIVE [id number] 22:30:00* Test Item Value Reference Range Interpretation Comments TROPONIN-I (test code = TROPI) < 0.015 ng/mL 0.000-0.045 N Negative: <= 0.045 Positive: >= 0.046 Correlation with serial results, other cardiac markers andclinical findings is necessary to determine the clinicalsignificance of this result. Results using different methodologies should not be comparedto one another as quantitative results may vary by method. LACTIC [id number] 22:27:00* Test Item Value Reference Range Interpretation Comments LACTIC ACID (test code = LACT) 1.3 mmol/L 0.4-1.9 N DRUGS OF ABUSE SCREEN [id number] 22:27:00* Test Item Value Reference Range Interpretation [...] be used for non-medical purposes. BASIC METABOLIC [id number] 22:17:00* Test Item Value Reference Range Interpretation [...] code = CA) mg/dL 8.0-10.5 HEPATIC FUNCTION [id number] 22:17:00* Test Item Value Reference Range Interpretation Comments TOTAL PROTEIN (test code = PROT) g/dL 6.4-8.2 ALBUMIN (test code = ALB) g/dL 3.4-5.0 BILIRUBIN TOTAL (test code = BILT) MG/DL <1.5 BILIRUBIN DIRECT (test code = BILD) MG/DL 0.0-0.30 SGOT/AST (test code = AST) IUnit/L 15-37 SGPT/ALT (test code = ALT) IUnit/L 15-65 ALKALINE PHOSPHATASE TOTAL (test code = ALKP) IUnit/L 20-125 [id number] 22:17:00* Test Item Value Reference Range Interpretation Comments LIPASE (test code = LIP) IUnit/L 73-393 HCG SERUM [id number] 22:17:00* Test Item Value Reference Range Interpretation Comments HCG SERUM QUAL (test code = HCGQL) SERUM NEGATIVE NEGATIVE [id number] 22:17:00* Test Item Value Reference Range Interpretation Comments TROPONIN-I (test code = TROPI) ng/mL 0.000-0.045 LACTIC [id number] 19:05:00* Test Item Value Reference Range Interpretation Comments LACTIC ACID (test code = LACT) 2.2 MMOL/L 0.4-1.9 HH Results called to [id number] by V.LAB.CB1 11/13/19 1905Critical results verified and read back by Nurse? Y URINALYSIS [id number] 18:14:00* Test Item Value Reference Range Interpretation [...] BACU) FEW per HPF NONE URINALYSIS W/O [id number] 18:14:00* Test Item Value Reference Range Interpretation Comments UA MICROSCOPIC NEEDED? (test code = UAMICRO) YES URINALYSIS [id number] 18:13:00* Test Item Value Reference Range Interpretation [...] = BACU) per HPF NONE URINALYSIS W/O [id number] 18:13:00* Test Item Value Reference Range Interpretation Comments UA MICROSCOPIC NEEDED? (test code = UAMICRO) YES URINALYSIS [id number] 18:13:00* Test Item Value Reference Range Interpretation [...] = BACU) per HPF NONE URINALYSIS W/O [id number] 18:13:00* Test Item Value Reference Range Interpretation Comments UA MICROSCOPIC NEEDED? (test code = UAMICRO) YES [id number] 17:14:00* Test Item Value Reference Range Interpretation Comments D-DIMER (test code = DDIMER) 301 ng/ml < 600 - XR CHEST 1 [id number] 17:13:00 Name: TIFFANIE HALL [facility] : 1965 Age/S:54 /F [address] [facility] Unit#:[id number] [place]: [place] [address] Phys: Nicolás Billings MD Dis Date: PHONE #: [phone] Status: PRE ER FAX #: [phone] Exam Date: 11/13/2019 Reason: cough, SOB EXAMS: CPT CODE: [id number] XR CHEST 1 V 67366 HISTORY: cough, shortness of breath TECHNIQUE: AP chest x-ray COMPARISON: None FINDINGS: No airspace consolidation or pleural effusion. Cardiomegaly. Mediastinal silhouette is unremarkable. Degenerative changes of the spine and shoulders. IMPRESSION: No radiographic evidence of acute cardiopulmonary process. LOCATION: LP at 1713 Reported and signed by: Terese Morgan D.O. CC: Nicolás Billings MD; Chintan Monsalve MD Technologist: Javier Barrios RT(R),CT Trnscrpt Data: 11/13/2019 (171) [email or web address] Orig Print D/T: S: 11/13/2019 (2353) PAGE 1 Signed Report COMPREHENSIVE METABOLIC [id number] 17:11:00* Test Item Value Reference Range Interpretation [...] code = ALKP) 176 U/L 38-126 H [id number] 17:11:00* Test Item Value Reference Range Interpretation Comments TROPONIN-I (test code = TROPI) <0.015 ng/mL 0.00-0.056 N LACTIC [id number] 17:11:00* Test Item Value Reference Range Interpretation Comments LACTIC ACID (test code = LACT) 2.2 MMOL/L 0.4-1.9 HH Results called to [id number] by [email or web address] 11/13/19 1711Critical results verified and read back by Nurse? Y B-TYPE NATRIURETIC [id number] 17:11:00* Test Item Value Reference Range Interpretation Comments B-TYPE NATRIURETIC PEPTIDE (test code = BNP) 24.1 pg/mL 0-100 N COMPREHENSIVE METABOLIC [id number] 17:04:00* Test Item Value Reference Range Interpretation [...] TOTAL (test code = ALKP) IUnit/L 45-117 [id number]-[id number] 17:04:00* Test Item Value Reference Range Interpretation Comments TROPONIN-I (test code = TROPI) ng/mL 0-0.045 CBC W/AUTO [id number] 16:54:00* Test Item Value Reference Range Interpretation [...] REQUIRED (test code = MDIFF) NO Urine wtdyfuy6601-38-13 17:34:05* Test Item Value Reference Range Interpretation Comments Urine culture isolate (test code = 11079-0) Mixed miguel <=10-3 col/ cc Specimen InformationSpecimen Source: UrineSpecimen Site: [facility] [id number] 17:34:05Gram stain resultNo WBC'sFew Gram positive rods Comment: Specimen InformationSpecimen Source: UrineSpecimen Site: Clean catch [facility] rhajkzf9891-39-78 11:38:54* Test Item Value Reference Range Interpretation Comments POC glucose (test code = 54259-7) 126 mg/dL 65-99 H Meter ID: [id number]: Chas Anderson Lab Interpretation (test code = 65350-0) [facility] mexnbo7634-52-79 08:15:12* Test Item Value Reference Range Interpretation Comments Platelet slide review (test code = 87781-0) Yanick adequate Anisocytosis (test code = 702-1) Slight Enlarged platelets (test code = 04406-9) Few Anisochromia (test code = 52041-5) Slight [facility] metabolic ortvt0488-66-07 07:29:55* Test Item Value Reference Range Interpretation Comments Sodium (test code = 2951-2) 143 135- 148 mEq/L Potassium (test code = 2823-3) 4.0 3.5- 5.0 mEq/L Chloride (test code = 2075-0) 101 98- 112 mEq/L CO2 (test code = 2027-9) 33 24- 31 mEq/L H Anion gap (test code = 61262-8) 9@ANIO 7- 15 mEq/L BUN (test code = 3094-0) 18 mg/dL 6-20 Creatinine (test code = 2160-0) 0.50 mg/dL 0.5-0.9 Glucose (test code = 2345-7) 93 mg/dL 65-99 Calcium (test code = 19606-7) 9.6 mg/dL 8.3-10.2 Lab Interpretation (test code = 34599-1) Abnormal [facility] MethodistEstimated [id number] 07:29:55* Test Item Value Reference Range Interpretation Comments Estimated GFR (test code = 5488) >=90 mL/min/1.73 m2 Catergory Units InterpretationG1 >=90 Normal or highG2 60-89 Mildly oficvqewvI0v 45-59 Mildly to moderately mnhyzuvyvJ3k 30-44 Moderately to severely decreasedG4 15-29 Severely decreasedG5 <15 Kidney failureThe eGFR was calculated using the Chronic Kidney Disease Epidemiology Collaboration (CKD-EPI) equation. Interpretation is based on recommendations of the National Kidney Foundation-Kidney Disease Outcomes Quality Initiative (NKF-KDOQI) published in 2014. [place] MethodistCBC with platelet and kwrrsxrbdbux7156-45-04 07:20:31* Test Item Value Reference Range Interpretation Comments WBC (test code = 92048-4) 7.60 4.50- 11.00 k/uL RBC (test code = 67402-1) 4.48 m/uL 4.2-5.5 HGB (test code = 718-7) 11.8 g/dL 12-16 L HCT (test code = 4544-3) 40.6 % 37-47 MCV (test code = 787-2) 90.6 fL 82-100 MCH (test code = 785-6) 26.3 pg 27-34 L MCHC (test code = 786-4) 29.1 g/dL 31-37 L RDW - SD (test code = 52938-9) 50.4 fL 37-55 MPV (test code = 87291-1) 10.4 fL 8.8-13.2 Platelet count (test code = 53030-3) 218 150- 400 k/uL Nucleated RBC (test code = 87277-1) 0.00 /100 WBC Neutrophils (test code = 15431-5) 63.2 % 39-69 Lymphocytes (test code = 19690-0) 29.2 % 25-45 Monocytes (test code = 65152-9) 5.0 % 0-10 Eosinophils (test code = 34284-3) 1.8 % 0-5 Basophils (test code = 22169-6) 0.4 % 0-1 Lab Interpretation (test code = 55226-0) Abnormal Dannie KnightUs duplex venous lower izwfdwxnp3180-31-43 09:22:00Bilateral lower extremity venous duplex ultrasound does not show evidence of venous thrombosis in the visualized veins.Normal compression or augmentation is seen. [facility]ey MethodistECG 12 kosl9873-01-66 06:55:38* Test Item Value Reference Range Interpretation Comments Ventricular rate (test code = 253) 80 Atrial rate (test code = 255) 80 KS interval (test code = 266) 154 QRSD [...] 00:12,- No significant change was found- Dannie KnightComprehensive metabolic oizqr6108-28-94 06:27:50* Test Item Value Reference Range Interpretation Comments Sodium (test code = 2951-2) 140 135- 148 mEq/L Potassium (test code = 2823-3) 4.0 3.5- 5.0 mEq/L Chloride (test code = 2075-0) 100 98- 112 mEq/L CO2 (test code = 2027-9) 30 24- 31 mEq/L Anion gap (test code = 56138-3) 10@ANIO 7- 15 mEq/L BUN (test code = 3094-0) 15 mg/dL 6-20 Creatinine (test code = 2160-0) 0.50 mg/dL 0.5-0.9 Glucose (test code = 2345-7) 186 mg/dL 65-99 H Calcium (test code = 68031-8) 9.2 mg/dL 8.3-10.2 Protein (test code = 2885-2) 6.8 g/dL 6.3-8.3 4.6-7.0 g/dL1 week 4.4-7.6 g/dL7 months-1year 5.1-7.3 g/dL1-2 years 5.6-7.5 g/dL>3 years 6.0-8.0 g/eA55-982 6.3-8.3 g/dL Albumin (test code = 1751-7) 3.6 g/dL 3.5-5 A/G ratio (test code = 1759-0) 1.1 0.7-3.8 Alkaline phosphatase (test code = 6768-6) 92 U/L 35-104 AST (test code = 1920-8) 19 U/L 10-35 ALT (test code = 1742-6) 30 U/L 5-50 Total bilirubin (test code = 1974-2) 0.2 mg/dL 0-1.2 Lab Interpretation (test code = 10849-0) Abnormal [place] MethodistUrinalysis screen and microscopy, with reflex to culture 2019-07-09 06:02:44* Test Item Value Reference Range Interpretation Comments Specimen site (test code = 0732035) Clean catch Color, UA (test code = 5778-6) Shayla Appearance, UA (test code = 5767-9) Clear Specific gravity, UA (test code = 5811-5) 1.010 1.001-1.035 pH, UA (test code = 5803-2) 6.0 5.0-8.5 Protein, UA (test code = 32112-2) Negative Negative Glucose, UA (test code = 27734-7) 2+ Negative A Ketones, UA (test code = 2514-8) Negative Negative Bilirubin, UA (test code = 5770-3) Negative Negative Blood, UA (test code = 5794-3) Negative Negative Nitrite, UA (test code = 5802-4) Positive Negative A Urobilinogen, UA (test code = 12625-9) Negative <2.0 Leukocyte esterase, UA (test code = 5799-2) Negative Negative Epithelial cells, UA (test code = 5787-7) Moderate Few /HPF WBC, UA (test code = 5821-4) 0-5 0- 4 /HPF RBC, UA (test code = 99328-6) 0-5 0- 5 /HPF Bacteria, UA (test code = 57170-6) Few None seen Yeast, UA (test code = 93236-4) None seen Yeast with pseudohyphae, UA (test code = 34848-8) None seen Lab Interpretation (test code = 99009-7) Abnormal Dannie KnightTpgysunjnPscktdxp5564-91-67 01:40:59* Test Item Value Reference Range Interpretation Comments Troponin (test code = 79177-3) <0.006 0-0.04 [place] Locally changed methodology effective: 03/02/2019 at 10:00 amThe new method has a 99th percentile cutoff of 0.040 ng/mL Pandey MandaeismLipid muyzt6133-40-99 21:30:06* Test Item Value Reference Range Interpretation Comments Cholesterol (test code = 2093-3) 192 mg/dL <200 Triglycerides (test code = 2571-8) 174 mg/dL <150 A HDL cholesterol (test code = 2085-9) 45 mg/dL >40 LDL cholesterol (test code = 2089-1) 143 mg/dL <100 H Result obtained by direct LDL measurement Lipid panel interpretation (test code = 23179-5) SeeBelow Total Cholesterol (mg/dL) <200 Desirable 200-239 [...] (>=200 mg/dL) Lab Interpretation (test code = 58032-9) Abnormal [place] RufvfixlzO-vcdks9444-80-12 18:08:11* Test Item Value Reference Range Interpretation Comments D-dimer (test code = 56767-8) 0.56 0.00- 0.40 ug/mL FEU H Units [...] and malignancies. Lab Interpretation (test code = 93697-4) Abnormal [place] MethodistXR Chest 2 [id number] 17:45:38Hm Interface, Radiology Results 07/08/2019 5:48 PM CDTEXAMINATION: XR CHEST 2 VWCLINICAL HISTORY: SOBIMPRESSION:There is mild fullness of the left hilar region, but the appearance is similar to a prior study from 2015. Heart size is at upper limits of normal. There is no acute appearing infiltrate or effusion. There is degenerative change of the thoracic spine.[facility]-[id number] Mandaeism Phenytoin vksop6738-44-24 17:45:24* Test Item Value Reference Range Interpretation Comments Phenytoin (test code = 3968-5) <0.8 10-20 A Therapeutic Range: 10 - 20 ug/mL Lab Interpretation (test code = 91479-8) [facility], [facility] (CPK)2019-07-08 17:45:24* Test Item Value Reference Range Interpretation Comments Creatine kinase (test code = 2157-6) 34 U/L 26-192 [facility] jthytug5443-96-83 17:38:04* Test Item Value Reference Range Interpretation Comments BNP (test code = 11793-3) 14 pg/mL 0-100 [facility] TyleristProthrombin time with [id number] 17:37:55* Test Item Value Reference Range Interpretation Comments Prothrombin time (test code = 5902-2) 12.5 11.5- 14.5 sec INR (test code = 81974-8) 1.0 Th e International Normalized Ratio (INR) is a therapeutic monitoring tool for patients who are stable on oral anticoagulant therapy. An INR of 2.0-3.0 is suggested for deep vein thrombosis/pulmonary embolism. [place] MethodistPartial thromboplastin time, zwdgyrpum5442-65-44 17:37:55* Test Item Value Reference Range Interpretation Comments PTT (test code = 55574-7) 24.8 23.0- 36.0 sec PTT therapeutic range for unfractionated heparin is61.0-112.0 seconds which corresponds to Anti-Xa0.3-0.7 U/ml. 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: yes Previous ECG: Previous ECG: Compared to [...] waves: normal Lab Interpretation (test code = 33345-8) Abnormal [place] Mandaeism- CT ABD PELVIS W/O [id number] 08:56:00 [facility] 1965 Age[facility] 54 / F [address] Unit #: [id number] Loc: [place] [address] Phys: Jaciel Morales MD Acct: [id number] Di s Date: Status: REG ER PHONE #: Exam Date: 06/08/2019814 FAX #: [phone] Reason: LLQ PAIN, VOMITING EXAMS: CPT CODE: [id number] CT ABD PELVIS W/O CONT 87495 REASON FOR EXAM: LLQ PAIN, VOMITING EXAM ORDER DATE: 06/08/2019 7:59 AM Ordering MPetra: Hayden Morales MD PROCEDURE: - CT ABD [...] nodes. PAGE 1 Signed Report (CONTINUED) Name: TIFFANEI HALL [facility] : 1965 Age/S: 54 / F [address] Unit #: [id number] Loc: [place] [address] Phys: Hayden Morales MD Acct: [id number] Dis Date: Status: REG ER PHONE #: [phone] Exam Date: 06/08/2019814 FAX #: [phone] Reason: LLQ PAIN, VOMITING EXAMS: CPT CODE: [id number] CT ABD PELVIS W/O CONT 98098 <Continued> Musculoskeletal structures and abdominal wall: Degenerative [...] Alejandro CTDI: DLP: Trnscb Date/Time: 06/08/2019 (0856) [id number] Orig Print D/T: S: 06/08/2019 (1026) PAGE 2 Signed Report URINALYSIS [id number] 08:21:00* Test Item Value Reference Range Interpretation [...] LPF NONE-FEW Urine Source? Clean CatchBASIC METABOLIC [id number] 08:14:00* Test Item Value Reference Range Interpretation [...] CA) 9.3 mg/dL 8.4-10.2 N HEPATIC FUNCTION [id number] 08:14:00* Test Item Value Reference Range Interpretation [...] code = ALKP) 115 U/L 38-126 N [id number] 08:14:00* Test Item Value Reference Range Interpretation Comments LIPASE (test code = LIP) 78 U/L 128-270 L URINALYSIS [id number] 08:11:00* Test Item Value Reference Range Interpretation [...] HPF NONE Urine Source? Clean CatchBASIC METABOLIC [id number] 08:10:00* Test Item Value Reference Range Interpretation [...] CA) 9.3 mg/dL 8.4-10.2 N HEPATIC FUNCTION [id number] 08:10:00* Test Item Value Reference Range Interpretation [...] TOTAL (test code = ALKP) IUnit/L 45-117 [id number] 08:10:00* Test Item Value Reference Range Interpretation Comments LIPASE (test code = LIP) Unit/L 144-286 CBC W/O [id number] 07:55:00* Test Item Value Reference Range Interpretation [...]
[2020-06-20] MEDS ORDERED: SODIUM CHLORIDE 0.9% 1000ML 1,000 ML IV STA ×3 (01:01→05:02)
[2020-06-20] MEDS: LEVOFLOXACIN 750MG/D5W 150ML 150 ML IV SCH (01:03)
--- NOTE | 2020-06-20 03:28 | Diagnostic Imaging Report ---
EXAM: CT Chest WITH contrast 06/20/2020 1:45 AM INDICATION: dyspnea COMPARISON: CT dated 06/18/2020. TECHNIQUE: Chest was scanned utilizing a multidetector helical scanner from the lung apex through the level of the adrenal glands with administration of IV contrast. Coronal and sagittal reformations were obtained. Routine protocol was performed. IV CONTRAST: 100 mL of Omnipaque 300 COMPLICATIONS: None RADIATION DOSE: Total DLP: 461.11 mGy*cm Estimated effective dose: (DLP x 0.014 x size factor) mSv CTDIvol has been reviewed. It is below the limits set by the Radiation Protocol Committee (RPC). Dose modulation, iterative reconstruction, and/or weight based adjustment of the mA/kV was utilized to reduce the radiation dose to as low as reasonably achievable. FINDINGS: LINES/ TUBES: None. LUNGS AND AIRWAYS: Mildly suboptimal contrast opacification of the pulmonary arteries and body habitus limit evaluation of the segmental and subsegmental pulmonary arteries. No central or lobar filling defects. Mosaic attenuation of the lung parenchyma. Bands of atelectasis in the right middle and lower lobes. Central airways are normal. PLEURA: The pleural spaces are clear. HEART AND MEDIASTINUM: The thyroid gland is normal. No mediastinal, hilar or axillary lymphadenopathy. The heart is normal in size. There is no pericardial effusion. UPPER ABDOMEN: Hepatic steatosis.. BONES: The visualized bony thorax is within normal limits. SOFT TISSUES: Unremarkable. IMPRESSION: 1. Limited evaluation of the segmental and subsegmental pulmonary arteries. No central or lobar pulmonary emboli. 2. Mosaic attenuation of the lung parenchyma suggests small airways disease. Bibasilar atelectasis. No pneumonia. Signed by: Frantz Harris MD on 06/20/2020 3:25 AM
[2020-06-20] MEDS ORDERED: METOPROLOL TARTRATE INJ 1 MG/ML VIAL IV ONE (03:45)
[2020-06-20] MEDS ORDERED: SODIUM CHLORIDE 0.9% 50ML 50 ML ONE (04:49)
[2020-06-20] MEDS ORDERED: IOPAMIDOL 370 MG/ML 200 ML INFUS..BTL INJ ONE (04:49)
[2020-06-20] MEDS ORDERED: SODIUM CHLORIDE 0.9% 1000ML 1,000 ML ONE (05:04)
[2020-06-20] MEDS ORDERED: ONDANSETRON HCL INJ 2MG/ML 2ML 2 MG/ML VIAL ONE (06:12)
[2020-06-20 06:18] VITALS: BP 113/72
== END 2020-06-20 06:52 | disposition other institution (70) ==
LOC: ER 22:59
DX: A41.9 Sepsis, unspecified organism (principal); N20.0 Calculus of kidney; N39.0 Urinary tract infection, site not specified; R06.00 Dyspnea, unspecified; Z11.59 Encounter for screening for other viral diseases
CPT/HCPCS: 36415; 71260; 80053; 83605; 83880; 85025; 87040; 87071; 87186; 87205; 93005; 94660; 99285; J2405; J7030; Q9967; U0002